=== PATIENT | female | born 1950 | race Caucasian/White ===

== ENCOUNTER 2016-02-29 10:17 | Emergency (ER) | payer MEDICARE, BC ==
[~2016-02-29 10:17] MED LIST: ALBU0.63 NEB; ASPI-482 PO; BRIM5DRO3 EACHEYE; COCO1000 PO; ESTR0.62 PO; GABA-586 PO; GLUC100018 PO; HYDR15SO4 PO; IBUP-1060 PO; IPRA0.2S5 IH; L.AC1CAP6 PO; MULT-208 PO; NAPR500T3 PO; OMEP20CA9 PO; PRAM0.125 PO; PRED20TA PO; SIMV40TA3 PO
[2016-02-29 11:26] VITALS: BP 146/77
[2016-02-29] MEDS ORDERED: DIPHENHYDRAMINE 50 MG/ML VIAL IM ONE (12:45)
[2016-02-29] MEDS ORDERED: DEXAMETHASONE SOD PHOS 20 MG/5 ML VIAL. IM ONE (12:45)
[2016-02-29] MEDS ORDERED: FAMO-63 PO (12:55)
[2016-02-29] MEDS ORDERED: PRED50TA PO (12:55)
--- NOTE | 2016-02-29 12:56 | PHYS DOC ---
Past Medical History Past Medical History: Asthma, GERD, High Cholesterol, IBS, Other Past Surgical History: Appendectomy, Cholecystectomy, Hysterectomy Additional Past Surgical Histo: ligament repair in knees, ulnar nerve repair, carpal tunnel, FUNDIPLICATION Alcohol Use: None Drug Use: None Adult General Chief Complaint Chief Complaint: POST-OP PROBLEM HPI HPI Patient is a 66 year old female with history of asthma, high cholesterol, IBS who presents today with a rash on her abdomen that she noted 3 days ago. Patient states she had fundoplication surgery [address] Kaba. Patient states when she took the bandages off she noted some areas on her abdomen were red. She also states she was started on Xarelto prophylaxis due to her history of PEs and Levaquin. Patient denies any chest pain or shortness of breath. She wonders if she is having an allergic reaction to medications or not. Review of Systems Review of Systems Constitutional: Denies fever or chills [] Eyes: Denies change in visual acuity, redness, or eye pain [] HENT: Denies nasal congestion or sore throat [] Respiratory: Denies cough or shortness of breath [] Cardiovascular: No additional information not addressed in HPI [] GI: Denies abdominal pain, nausea, vomiting, bloody stools or diarrhea [] : Denies dysuria or hematuria [] Musculoskeletal: Denies back pain or joint pain [] Integument: rash Neurologic: Denies headache, focal weakness or sensory changes [] Endocrine: Denies polyuria or polydipsia [] Current Medications Current Medications Current Medications Medications (Trade) Dose Ordered Sig/Kristin Start Time Stop Time Status Last Admin Dose Admin Dexamethasone Sodium Phosphate (Decadron) 10 mg 1X ONCE 02/29/16 12:45 02/29/16 12:46 Diphenhydramine HCl (Benadryl) 25 mg 1X ONCE 02/29/16 12:45 02/29/16 12:46 Allergies Allergies Allergies Coded Allergies Type Severity Reaction Last Updated Verified bacitracin Allergy Intermediate rash 02/24/16 Yes neomycin Allergy Intermediate rash 02/24/16 Yes polymyxin B Allergy Intermediate rash 02/24/16 Yes sulfamethoxazole Allergy Intermediate Nausea and Vomiting 02/24/16 Yes clavulanic acid Adverse Reaction Intermediate headache 02/27/16 Yes erythromycin base Adverse Reaction Intermediate vomiting 02/27/16 Yes morphine Adverse Reaction Intermediate vomiting 02/27/16 Yes nitrofurantoin Adverse Reaction Intermediate fatigue 02/27/16 Yes trimethoprim Adverse Reaction Intermediate Nausea and Vomiting 02/27/16 Yes amoxicillin Adverse Reaction Unknown headache 02/25/16 Yes Physical Exam Physical Exam Constitutional: Well developed, well nourished, no acute distress, non-toxic appearance. [] HENT: Normocephalic, atraumatic, bilateral external ears normal, oropharynx moist, no oral exudates, nose normal. [] Eyes: PERRLA, EOMI, conjunctiva normal, no discharge. [] Neck: Normal range of motion, no tenderness, supple, no stridor. [] Cardiovascular:Heart rate regular rhythm, no murmur [] Lungs & Thorax: Bilateral breath sounds clear to auscultation [] Abdomen: Bowel sounds normal, soft, no tenderness, no masses, no pulsatile masses. [] Skin: Mild amount of circular erythematous rash noted around the surgical sites on her abdomen. There is trace rash on the left thigh. Back: No tenderness, no CVA tenderness. [] Extremities: No tenderness, no cyanosis, no clubbing, ROM intact, no edema. [] Neurologic: Alert and oriented X 3, normal motor function, normal sensory function, no focal deficits noted. [] Psychologic: Affect normal, judgement normal, mood normal. [] Current Patient Data Vital Signs Vital Signs Date Time Temp Pulse Resp B/P Pulse Ox O2 Delivery O2 Flow Rate FiO2 02/29/16 11:26 98.4 103 16 94 Room Air 98.4 EKG EKG [] Radiology/Procedures Radiology/Procedures [] Course & Med Decision Making Course & Med Decision Making Pertinent Labs and Imaging studies reviewed. (See chart for details) Patient has a rash suspicious for contact dermatitis considering the rashes are mostly on surgical site after where dressing was removed. . She is on blood thinners and this causes easy bruising too. I did speak with Dr. Kohler who requested patient contact the office tomorrow to talk to Dr. Kaba. In the meantime he agreed we can give patient Decadron and Benadryl. Patient was discharged with prednisone for 4 days Benadryl Pepcid. Follow up with Dr. Kaba tomorrow Darlyn Disclaimer Darlyn Disclaimer This electronic medical record was generated, in whole or in part, using a voice recognition dictation system. Departure Departure Impression: Primary Impression: Contact dermatitis Disposition: HOME, SELF-CARE Condition: LEFT WITHOUT BEING SEEN Referrals: DALJIT POON MD (PCP) COLT KABA MD follow up with him tomorrow by calling his office Patient Instructions: Contact Dermatitis, [id number] Additional Instructions: You were seen for rash suspicious for contact dermatitis especially with its distribution along the surgical site. It could be from the tape used during surgery. Continue taking Benadryl every 4 hours, use the rest of the medications as prescribed. Scripts Famotidine (Pepcid)20 Mg [id number] Mg PO DAILY #7 TAB Prov:URI AGUILAR APRN 02/29/16 Prednisone 50 Mg Tablet1 Tab PO DAILY #4 TAB Prov:URI AGUILAR APRN 02/29/16 Problem Qualifiers Primary Impression: Contact dermatitis Contact dermatitis type: unspecified Contact dermatitis trigger: unspecified trigger Qualified Code: L25.9 - Unspecified contact dermatitis, unspecified cause URI AGUILAR APRN Feb 29, 2016 12:56
== END 2016-02-29 13:10 | disposition home or self-care (01) ==
LOC: ER 10:17
DX: L25.9 Unspecified contact dermatitis, unspecified cause (principal); E78.00 Pure hypercholesterolemia, unspecified; K21.9 Gastro-esophageal reflux disease without esophagitis; K58.9 Irritable bowel syndrome, unspecified; J45.909 Unspecified asthma, uncomplicated; Z90.49 Acquired absence of other specified parts of digestive tract; Z90.710 Acquired absence of both cervix and uterus; Z88.2 Allergy status to sulfonamides; Z88.5 Allergy status to narcotic agent; Z88.1 Allergy status to other antibiotic agents; Z88.8 Allergy status to other drugs, medicaments and biological substances
CPT/HCPCS: 96372; 99284; J1100; J1200

== ENCOUNTER → 2016-04-13 | Outpatient (CLI) | payer MEDICARE, BC ==
[~2016-04-13] MED LIST changes: +FAMO-63 PO; +PRED50TA PO
== END | disposition home or self-care (01) ==
LOC: LAB 11:04
PROVIDERS: ATTEND Internal Medicine Pulmonary Disease
DX: R06.02 Shortness of breath (principal)
CPT/HCPCS: 36415; 85379

== ENCOUNTER → 2016-04-20 | Outpatient (CLI) | payer MEDICARE, BC ==
--- NOTE | 2016-04-20 15:54 | KCIC ---
PROCEDURE Right knee, three views. HISTORY Pain. FINDINGS Frontal, oblique and lateral views of the right knee are obtained. There is minimal medial compartment joint space narrowing spurring. There is also minimal spurring of the patella. There is no fracture, dislocation or subluxation. There is no joint effusion. IMPRESSION Minimal medial and patellofemoral compartment osteoarthritis of the right knee. Electronically signed by: Marian Pineda (Apr 20, 2016 15:51:54)
== END | disposition home or self-care (01) ==
LOC: KCIC 10:03
PROVIDERS: ATTEND Family Medicine
DX: M17.11 Unilateral primary osteoarthritis, right knee (principal)
CPT/HCPCS: 73562

== ENCOUNTER → 2016-04-26 | Outpatient (CLI) | payer MEDICARE, BC ==
--- NOTE | 2016-04-27 10:11 | KCIC ---
PROCEDURE MRI study of the right knee without contrast HISTORY Right knee pain and stiffness. Right knee pain is anterior in location. Crepitus. Weakness. Patient injured right knee in March 2016. TECHNIQUE Noncontrast MRI sequences of the right knee were performed in all 3 planes. COMPARISON Radiographic series dated April 20, 2016. FINDINGS The anterior and posterior cruciate ligaments are intact. The quadriceps and patellar tendons are intact. No articular surface tear of the medial or lateral meniscus is seen. The medial collateral ligament is intact and no meniscal capsular separation is seen. The lateral collateral ligament complex and iliotibial band and popliteus tendon are intact. No posterior lateral corner injury is seen. No bone contusion or fracture or marrow infiltrative process is seen. Mild degenerative spurring of the medial and lateral tibiofemoral joint compartments is seen. No articular cartilage defect of the medial or lateral tibiofemoral joint compartments is seen. There is mild medial subluxation of the patella with respect to the trochlea. There is severe chondromalacia patellae involving the medial patellar facet with significant loss of the articular cartilage here which extends to the apex. There is moderate chondromalacia patellae involving the lateral patellar facet along with mild subchondral bone marrow edema. There is severe chondromalacia of the medial aspect of the trochlear groove with loss of the articular cartilage here. There is joint space narrowing of the medial portion of the patellofemoral joint compartment due to the loss of cartilage. Therefore, bone on bone interface may be present. There is mild degenerative spurring of the patellofemoral joint compartment. The medial and lateral retinacular ligaments are intact. No distended Alcantar's cyst is seen. A small knee joint effusion is evident. No loose osteochondral body is seen. No muscle edema is seen. 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 No ligament or tendon or meniscal tear is seen. Electronically signed by: Karsten Ryder MD (Apr 27, 2016 10:09:50)
== END | disposition home or self-care (01) ==
LOC: KCIC MRI 15:48
PROVIDERS: ATTEND Family Medicine
DX: M25.661 Stiffness of right knee, not elsewhere classified (principal); M22.41 Chondromalacia patellae, right knee
CPT/HCPCS: 73721

== ENCOUNTER → 2016-06-02 | Outpatient (CLI) | payer MEDICARE, BC ==
--- NOTE | 2016-06-02 13:20 | KCIC ---
PROCEDURE Bone mineral density exam HISTORY Menopausal disorder, steroid use, hysterectomy COMPARISON None FINDINGS Bone mineral density examination utilizing DEXA was performed. Left forearm was interrogated. Left forearm bone mineral density was 0.574 grams/centimeter squared which corresponds with T-score of 0.2 and a Z-score 2.2. Left hip bone mineral density of 1.083 grams/centimeter squared corresponds with T-score 1.2 and a Z-score 2.6. World Health Organization criteria for bone mineral density interpretation: Normal T-score greater than or equal to-1.0, Osteopenia T score between-1.0 and-2.5, Osteoporosis T-score less than or equal to-2.5. IMPRESSION There is normal bone density of the left hip and the left forearm. Electronically signed by: Eladio Alvarado MD (Jun 02, 2016 13:19:07)
--- NOTE | 2016-06-02 13:48 | KCIC ---
PROCEDURE Chest CT without contrast. HISTORY Asthma, pulmonary nodule, nonsmoker TECHNIQUE Noncontrast CT imaging was performed of the chest, multiplanar reconstruction images submitted. Exposure: One or more of the following individualized dose reduction techniques were utilized for this exam: 1. Automated exposure control. 2. Adjustment of the mA and/or kV according to patient size. 3. Use of iterative reconstruction technique. COMPARISON February 26, 2016 [facility] FINDINGS Previously seen lower lobe infiltrates have resolved. There is no pleural effusion, pneumothorax, or new infiltrate. Major airways are patent. There is some coronary calcification. There is again some hypodensity with associated calcification of the left thyroid gland. There is no new significant lymphadenopathy of the chest. Thoracic aortic caliber is similar, within normal limits. Small right upper lobe nodule near apex 0.3 cm is stable as seen on axial image 15. Small 0.3 cm nodule right middle lobe axial image 60 is unchanged. There is a residual nodule at site of previously seen atelectasis/infiltrate on axial image 62 in the left lower lobe up to 0.3 centimeters. There is mild biapical fibrotic change greater on the left. There is multilevel mild thoracic spondylosis. There again clips in the left upper quadrant of the abdomen. There is mild hepatic steatosis. Previously seen pneumomediastinum has resolved. IMPRESSION 1. Previously seen infiltrates have resolved. There are small pulmonary nodules as stated. If there are low risk factors for neoplasm, no follow-up would be needed given small size. If there are increased risk factors for neoplasm, 1 year followup is recommended. 2. There is mild hepatic steatosis. 3. There is coronary calcification. 4. Hypodense lesion with associated calcification of the left thyroid gland is similar. Electronically signed by: Eladio Alvarado MD (Jun 02, 2016 13:47:19)
--- NOTE | 2016-06-02 16:19 | KCIC ---
Bilateral digital screening mammograms with CAD: HISTORY Routine screening. COMPARISON Comparison is made to previous studies dated back to 05/24/2012. FINDINGS Breast density category C. The skin and nipples show no abnormalities. No abnormal lymph nodes are seen in the axilla. The breast parenchyma shows heterogeneous density. The nodular density in the left breast has regressed. There continues to be a small nodular density at the 9 o'clock B position of the right breast which is unchanged. There are no new dominant masses, suspicious calcifications or architectural distortions. Benign appearing calcifications are present. IMPRESSION No evidence of malignancy. Recommend routine annual mammographic screening. This study was interpreted with the benefit of Computerized Aided Detection (CAD). Mammography is not 100% sensitive in detecting breast cancer. Therefore, a self breast exam and a clinical breast exam are very important. A negative mammogram does not negate a clinically suspicious finding and should not result in a delay in biopsying a clinically suspicious abnormality. BI-RADS category 2. Benign. This patient's information has been entered into a reminder system for the patient to be notified with the results of this examination and a target date for her next mammograms. Electronically signed by: Romy Nuñez MD (Jun 02, 2016 16:16:56)
== END | disposition home or self-care (01) ==
LOC: KCIC CT 12:19
PROVIDERS: ATTEND Family Medicine
DX: Z12.31 Encounter for screening mammogram for malignant neoplasm of breast (principal); N95.9 Unspecified menopausal and perimenopausal disorder; R91.1 Solitary pulmonary nodule; N28.89 Other specified disorders of kidney and ureter; I25.10 Atherosclerotic heart disease of native coronary artery without angina pectoris; E07.9 Disorder of thyroid, unspecified
CPT/HCPCS: 71250; 77080; 77081; G0202; 77067

== ENCOUNTER → 2016-06-08 | Outpatient (CLI) | payer MEDICARE, BC ==
--- NOTE | 2016-06-08 12:03 | KCIC ---
PROCEDURE Thyroid ultrasound 06/08/2016 HISTORY Thyroid nodule seen on recent CT scan. TECHNIQUE A real-time ultrasound examination of the thyroid gland was performed. Multiple images were obtained. FINDINGS Comparison is made to the patient's CT scan of the chest dated 06/02/2016. The thyroid gland is mildly enlarged, left greater than right. The right lobe of the thyroid gland measures 3.9 x 1.8 x 1.5 centimeters in longitudinal, transverse, and AP dimensions. The left lobe of the thyroid gland measures 4.7 x 2.1 x 1.8 centimeters in size. The isthmus measures 4 millimeters in thickness which is within normal limits. The thyroid gland is heterogeneous. A 3 millimeter slightly complex anechoic structure is seen involving the inferior aspect of the right lobe of the thyroid gland. A heterogeneous oval-shaped solid nodule is seen involving the inferior aspect of the left lobe of the thyroid gland. This measures 1.6 centimeters in greatest diameter. This corresponds to the abnormality seen on the patient's recent CT scan. These findings are consistent with a multinodular goiter. The 1.6 centimeter nodule within the left lobe of the thyroid gland has a nonspecific appearance. IMPRESSION Findings consistent with a multinodular goiter. A 1.6 centimeter heterogeneous solid nodule is seen within the left lobe of the thyroid gland. This corresponds to the abnormality seen on the patient's recent CT scan. Its ultrasound appearance is nonspecific. Electronically signed by: Tom Hoffmann MD (Jun 08, 2016 12:02:20)
== END | disposition home or self-care (01) ==
LOC: KCIC US 10:49
PROVIDERS: ATTEND Family Medicine
DX: E04.2 Nontoxic multinodular goiter (principal)
CPT/HCPCS: 76536

== ENCOUNTER 2016-08-13 22:19 | Emergency (ER) | payer MEDICARE, BC ==
[~2016-08-13] VITALS: Ht 152.4 cm; Wt 86.6 kg
[2016-08-13 22:45] VITALS: BP 135/75
--- NOTE | 2016-08-13 23:17 | PHYS DOC ---
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 Patient reports that there was itching her after the bite and while itching it started to bleed significantly. Patient reports that she had a significant amount of blood on the floor she's loaded up several towels with blood. Patient denies any chest pain shortness of breath nausea vomiting diarrhea or dizziness. Patient reports that she was on the relative up until approximately 3 months ago. Patient denies any history of hypertension diabetes liver longer kidney problems. Patient reports postop she developed a DVT and took a 6 month course of several 2. Patient is not allergic to any medications. Patient not smoke drink or do any drugs. Patient denies any other symptomatology. Patient has any fevers shakes chills nausea vomiting diarrhea cough cold or runny nose. Patient's physical exam is significant for a small punctate area of the skin on her right lateral thigh over a significant amount of varicose veins. Patient is otherwise neurovascularly stable. Assessment and plan 58-year-old female with likely varicose vein bleeding that she mistakes for an insect/spider bite. Currently there is no bleeding. We will apply Dermabond to the area to help given an extra layer of infection. We will check an i-STAT on her to make sure her hemoglobin was okay with amount of bleeding that she reports. Patient is otherwise hemodynamically stable for discharge to home. Review of Systems Review of Systems Constitutional: Denies fever or chills [] Eyes: Denies change in visual acuity, redness, or eye pain [] HENT: Denies nasal congestion or sore throat [] All other review systems are negative except as documented in the history of present illness portion. Allergies Allergies Allergies Coded Allergies Type Severity Reaction Last Updated Verified bacitracin Allergy Intermediate rash 02/24/16 Yes neomycin Allergy Intermediate rash 02/24/16 Yes polymyxin B Allergy Intermediate rash 02/24/16 Yes sulfamethoxazole Allergy Intermediate Nausea and Vomiting 02/24/16 Yes clavulanic acid Adverse Reaction Intermediate headache 02/27/16 Yes erythromycin base Adverse Reaction Intermediate vomiting 02/27/16 Yes morphine Adverse Reaction Intermediate vomiting 02/27/16 Yes nitrofurantoin Adverse Reaction Intermediate fatigue 02/27/16 Yes trimethoprim Adverse Reaction Intermediate Nausea and Vomiting 02/27/16 Yes amoxicillin Adverse Reaction Unknown headache 02/25/16 Yes Physical Exam Physical Exam Constitutional: Well developed, well nourished, no acute distress, non-toxic appearance. [] HENT: Normocephalic, atraumatic, bilateral external ears normal, oropharynx moist, no oral exudates, nose normal. [] Eyes: PERRLA, EOMI, conjunctiva normal, no discharge. [] Neck: Normal range of motion, no tenderness, supple, no stridor. [] Cardiovascular:Heart rate regular rhythm, no murmur [] Lungs & Thorax: Bilateral breath sounds clear to auscultation [] Abdomen: Bowel sounds normal, soft, no tenderness, no masses, no pulsatile masses. [] Skin: Warm, dry, no erythema, no rash. [] Back: No tenderness, no CVA tenderness. [] Extremities: No tenderness, no cyanosis, no clubbing, ROM intact, no edema. [] Neurologic: Alert and oriented X 3, normal motor function, normal sensory function, no focal deficits noted. [] Psychologic: Affect normal, judgement normal, mood normal. [] Current Patient Data Vital Signs Vital Signs Date Time Temp Pulse Resp B/P (MAP) Pulse Ox O2 Delivery O2 Flow Rate FiO2 08/13/16 22:45 97.9 76 18 96 Room Air 97.9 EKG EKG [] Radiology/Procedures Radiology/Procedures [] Course & Med Decision Making Course & Med Decision Making Pertinent Labs and Imaging studies reviewed. (See chart for details) [] Dragon Disclaimer Dragon Disclaimer This electronic medical record was generated, in whole or in part, using a voice recognition dictation system. Departure Departure Impression: Primary Impression: Bleeding from varicose veins of right lower extremity Disposition: HOME, SELF-CARE Condition: IMPROVED Referrals: DALJIT POON MD (PCP) Patient Instructions: Bleeding Varicose Veins BENTON ROMERO MD Aug 13, 2016 23:17
[2016-08-25] MEDS ORDERED: TRAM50TA PO (15:29)
[2016-08-25] MEDS ORDERED: PRAM0.255 PO ×2 (15:29)
[2016-08-25] MEDS ORDERED: LATA2.5D3 EACHEYE (15:29)
[2016-08-25] MEDS ORDERED: FERR-26 PO (16:09)
[2016-08-25] MEDS ORDERED: LACT20SO PO (16:09)
== END 2016-08-13 23:22 | disposition home or self-care (01) ==
LOC: ER 22:19
DX: I83.891 Varicose veins of right lower extremity with other complications (principal); J45.909 Unspecified asthma, uncomplicated; K21.9 Gastro-esophageal reflux disease without esophagitis; E78.00 Pure hypercholesterolemia, unspecified; K58.9 Irritable bowel syndrome, unspecified; G20 Parkinson's disease; Z90.49 Acquired absence of other specified parts of digestive tract; Z90.710 Acquired absence of both cervix and uterus; Z86.718 Personal history of other venous thrombosis and embolism; Z88.1 Allergy status to other antibiotic agents; Z88.5 Allergy status to narcotic agent; Z88.2 Allergy status to sulfonamides; Z88.8 Allergy status to other drugs, medicaments and biological substances
CPT/HCPCS: 99281

== ENCOUNTER → 2016-08-29 | Outpatient (CLI) | payer MEDICARE, BC ==
[2016-08-13 22:45] VITALS: BP 135/75
[~2016-08-29] MED LIST changes: +FERR-26 PO; +LACT20SO PO; +LATA2.5D3 EACHEYE; +PRAM0.255 PO; +TRAM50TA PO
[2016-08-29 09:12] LABS: BASO % 0 % (0-3); EOS % 4 % (0-3); HEMOGLOBIN 12.7 g/dL (12.0-15.5); LYMPH # 1.5 x10^3/uL (1.0-4.8); LYMPH % 19 % (24-48); MEAN CORPUSCULAR HEMOGLOBIN 30 pg (25-35); MEAN CORPUSCULAR HGB CONC 34 g/dL (31-37); MEAN CORPUSCULAR VOLUME 88 fL (79-100); MONO % 6 % (0-9); NEUT % 70 % (31-73); PLATELET COUNT 340 x10^3/uL (140-400); RED BLOOD COUNT 4.22 x10^6/uL (3.50-5.40); RED CELL DISTRIBUTION WIDTH 12.6 % (11.5-14.5); WHITE BLOOD COUNT 8.1 x10^3/uL (4.0-11.0)
[2016-08-29 09:23] LABS: PROTHROMBIN TIME PATIENT 12.2 SEC (11.7-14.0)
[2016-08-29 09:24] LABS: ALBUMIN 3.2 g/dL (3.4-5.0); CALCIUM 8.6 mg/dL (8.5-10.1); CREATININE 1.2 mg/dL (0.6-1.0); GFR 44.7; POTASSIUM 3.9 mmol/L (3.5-5.1)
[2016-08-29 10:41] LABS: BILIRUBIN,URINE NEGATIVE (NEG); GLUCOSE,URINE NEGATIVE (NEG); NITRITE,URINE NEGATIVE (NEG); PH,URINE 5.5; PROTEIN,URINE NEGATIVE (NEG-TRACE); UROBILINOGEN,URINE 0.2 mg/dL (0.2 mg/dL)
[2016-08-29 11:06] LABS: SQUAMOUS EPITHELIAL CELL,UR MOD /LPF
[2016-08-29 11:07] LABS: BACTERIA,URINE FEW /HPF (0-FEW); RBC,URINE 0 /HPF (0-2); WBC,URINE OCC /HPF (0-4)
== END | disposition home or self-care (01) ==
LOC: SURGPAT 13:11
PROVIDERS: ATTEND Orthopaedic Surgery
DX: M17.11 Unilateral primary osteoarthritis, right knee (principal)
CPT/HCPCS: 36415; 80048; 81001; 82040; 85027; 85610; 85651; 85730; 87641

== ENCOUNTER 2016-09-13 05:32 | Inpatient (IN) | payer MEDICARE, BC ==
--- NOTE | 2016-09-12 11:27 | PDOC1 ---
History and Physical Date of Admission Date of Admission DATE: 09/13/16 Identification/Chief Complaint Chief Complaint right knee osteoarthritis pain Problems: Source Source: Chart review History of Present Illness History of Present Illness Nancy is a 66 year old female with right knee pain. She finished a series of Orthovisc injections on 07/28/16. She stated the injections did not provide any relief and she is still having pain. She had a cortisone injection previous to the Orthovisc series, which did not provide any relief either. Her pain is worse at night, she has a stinging pain. The pain is located anteriorly, around the patella, and along the medial joint line. She has tried cortisone, Orthovisc and Voltaren gel with no symptomatic relief. She has difficulty with stairs and trouble with activities of daily living, due to pain. She sews a lot and does woodworking and is not able to set up her woodworking room, due to pain. She is ready for total knee surgery. Past Medical History Past Medical History history of pulmonary embolism after fundoplication six months ago Cardiovascular: Hyperlipidemia Musculoskeletal: Osteoarthritis Past Surgical History Past Surgical History: Appendectomy, Cholecystectomy, Other (foot surgery, posterior lumbar discectomy fusion) Family History Family History: Cancer, Osteo Arthiritis Social History Smoke: No ALCOHOL: none Drugs: None Current Medications Current Medications Active Scripts Active Reported Lactulose 20 Gm/30 Ml Solution 5 Ml PO UD Ferrous Sulfate 325 Mg Tablet 325 Mg PO DAILY Mirapex (Pramipexole Di-Hcl) 0.25 Mg Tablet 0.5 Mg PO DAILYWSUP Mirapex (Pramipexole Di-Hcl) 0.25 Mg Tablet 0.25 Mg PO DAILY08 Tramadol Hcl 50 Mg Tablet 50 Mg PO Q6H PRN Latanoprost 2.5 Ml Drops 1 Drop EACHEYE QHS Gabapentin 300 Mg Capsule 300 Mg PO TID Ipratropium [place] 0.2 Mg/1 Ml Solution 0.2 Mg IH PRN Q4-6HRS PRN Ibuprofen 800 Mg Tablet 1 Tab PO TID Coconut Oil 1,000 Mg Capsule 1,000 Mg PO BID Glucosamine (Glucosamine Sulfate 2KCL) 1,000 Mg Tablet 1,000 Mg PO DAILY Albuterol Sulfate Neb Soln (Albuterol Sulfate) 0.63 Mg/3 Ml Vial.neb 1 Vial NEB BID Naproxen 500 Mg Tablet 1 Tab PO BID Premarin (Estrogens, Conjugated) 0.625 Mg Tablet 1 Tab PO DAILY Simvastatin 40 Mg Tablet 1 Tab PO QHS Allergies Allergies: Coded Allergies: bacitracin (Verified Allergy, Intermediate, rash, 02/24/16) neomycin (Verified Allergy, Intermediate, rash, 02/24/16) polymyxin B (Verified Allergy, Intermediate, rash, 02/24/16) sulfamethoxazole (Verified Allergy, Intermediate, Nausea and Vomiting, ) adhesive (Verified Adverse Reaction, Intermediate, Rash, 08/25/16) INCLUDING STERI STRIPS & GLUE clavulanic acid (Verified Adverse Reaction, Intermediate, headache, ) erythromycin base (Verified Adverse Reaction, Intermediate, vomiting, ) morphine (Verified Adverse Reaction, Intermediate, vomiting, 02/27/16) nitrofurantoin (Verified Adverse Reaction, Intermediate, fatigue, 02/27/16 ) CAUSES LETHARGY AND WEAKNESS trimethoprim (Verified Adverse Reaction, Intermediate, Nausea and Vomiting , 02/27/16) amoxicillin (Verified Adverse Reaction, Unknown, headache, 02/25/16) Physical Exam General: Alert, Oriented X3, Cooperative, No acute distress HEENT: Atraumatic, EOMI Lungs: Normal air movement Heart: RRR Abdomen: Soft Extremities: No clubbing, No cyanosis, Normal pulses, Other (Upon inspection of the right knee, there are no masses or detectable effusion. Normal alignment. The right knee shows active range of motion from 0-115 degrees. There is crepitus felt with motion and mild pain at the extremes of motion. There is tenderness to palpation along the medial joint line and over the patella. The knee is stable to varus and valgus stress, without subluxation or laxity. Quadriceps and hamstring show normal strength 5/5, with normal muscle tone, bilaterally. Upon inspection of the left knee, there are no masses or detectable effusion. Normal alignment. The left knee shows active range of motion from 0-125 degrees. There is mild crepitus felt with motion and no pain with motion. There is no tenderness to palpation about the knee. The knee is stable to varus and valgus stress, without subluxation or laxity. Quadriceps and hamstring show normal strength of 5/5, with normal muscle tone. No edema or varicosities, bilaterally.) Skin: No rashes, No breakdown, No significant lesion Neuro: Normal speech, Sensation intact Psych/Mental Status: Mental status NL, Mood NL Images Images IMAGING REPORT Images: 45 PA weightbearing view of both knees and lateral view of the right knee. Clinical information: Right knee pain. Comparison: None. Findings Bones: There is no fracture, dislocation, or acute bony abnormality detected. Joints: There is joint space narrowing of the medial compartment with small medial osteophytes. There is [id number] contact of the patellofemoral joint. Soft tissue: Normal. Impression: Right knee osteoarthritis. VTE Prophylaxis Ordered VTE Prophylaxis Devices: Yes VTE Pharmacological Prophylaxi: Yes Assessment/Plan Assessment/Plan Findings were reviewed and treatment options were discussed with the patient. She has chronic right knee pain unrelieved by nonoperative treatment. She has tried a series of Orthovisc injections, a cortisone injection, and Voltaren gel , without relief. She completed three months of formal physical therapy. She can no longer complete her activities of daily living and hobbies, due to pain. She states is ready for right total knee arthroplasty. Since most of the osteoarthritis is patellofemoral, we briefly discussed the option of patellofemoral arthroplasty elsewhere, as Dr. Olguin does not perform this operation, but she is not interested in possibly having to convert to total knee arthroplasty in the future. We discussed the surgical procedure, joint class, and rehabilitation process. We discussed the potential risks of infection , neurovascular injury, bleeding, blood clots, need for revision surgery, or other potential surgical or anesthetic complications. All of her questions were answered and she would like to proceed with right total knee arthroplasty at a mutually convenient date. She has a history of pulmonary embolism after fundoplication six months ago, so we will use Xarelto for DVT prophylaxis postoperatively. We will request medical clearance from her primary care provider, Dr. Russell Buchanan. She mentions her PCP recommended she see Dr. Young, neurologist, for management of movement disorder, so we will have her obtain clearance from his as well. DIOGO GAO Sep 12, 2016 11:27
[2016-09-13] VITALS (10 sets, daily range): BP systolic 95–109; BP diastolic 49–66
[~2016-09-13] VITALS: Ht 152.4 cm; Wt 81.6 kg
[2016-09-13] MEDS: IV DEXTROSE 5 %-0.45 % NACL 1,000 ML IV SCH ×2 (05:25→14:43)
[2016-09-13] MEDS ORDERED: MORPHINE SULFATE 5 MG, KETOROLAC TROMETHAMINE 30 MG, ROPIVacaine 0.5% PF 60 ML, EPINEPH... INT ART ONE ×5 (06:00)
[2016-09-13] MEDS ORDERED: HYDROcodone/APAP 7.5/325MG 1 TAB TABLET PO PRN ×2 (06:00→09:30)
[2016-09-13] MEDS ORDERED: CLINDAMYCIN 600MG PREMIX 50 ML IV PRN (06:00)
[2016-09-13] MEDS ORDERED: TRANEXAMIC ACID 1,000 MG in IV NS 50ML -- 1ST BAG INJ ONE (06:00)
[2016-09-13] MEDS ORDERED: CELECOXIB 200 MG CAPSULE. PO PRN (06:00)
[2016-09-13] MEDS ORDERED: VANCOMYCIN 1 GM VIAL. ONE (06:23)
[2016-09-13] MEDS ORDERED: TOBRAMYCIN POWDER 1.2 GM VIAL. ONE (06:23)
[2016-09-13] MEDS ORDERED: LIDOCAINE 1% 1 ML SYRINGE. ID PRN (07:00)
[2016-09-13] MEDS ORDERED: ONDANSETRON PF 4 MG/2 ML VIAL. IV PRN (07:00)
[2016-09-13] MEDS ORDERED: MORPHINE SULFATE 2 MG/ML DISP.SYRIN. IV PRN (07:00)
[2016-09-13] MEDS ORDERED: PROPOFOL 50 ML IV ONE (07:00)
[2016-09-13] MEDS ORDERED: PROCHLORPERAZINE 10 MG/2 ML VIAL. IV PRN ×2 (07:00→09:30)
[2016-09-13] MEDS ORDERED: HYDROmorphone 2 MG/ML VIAL IV PRN (07:00)
[2016-09-13] MEDS ORDERED: fentaNYL PF VIAL 100 MCG/2 ML VIAL IV PRN ×4 (07:00→09:30)
[2016-09-13] MEDS ORDERED: REMIFENTANIL 1 MG VIAL. IV ONE (07:00)
[2016-09-13] MEDS ORDERED: IV RINGERS,LACTATED 1000ML 1,000 ML IV SCH ×2 (07:00)
[2016-09-13] MEDS ORDERED: PROPOFOL 100 ML IV ONE (07:25)
[2016-09-13] MEDS ORDERED: DEXAMETHASONE SOD PHOS 20 MG/5 ML VIAL. ONE (07:28)
[2016-09-13] MEDS ORDERED: ePHEDrine PF IN SALINE 50 MG/5 ML DISP.SYRIN IV ONE (07:29)
[2016-09-13] MEDS ORDERED: TRANEXAMIC ACID 1,000 MG in IV NS 50ML -- 2ND BAG INJ ONE (08:00)
[2016-09-13] MEDS ORDERED: fentaNYL PF VIAL 100 MCG/2 ML VIAL ONE (08:03)
[2016-09-13] MEDS ORDERED: ONDANSETRON PF 4 MG/2 ML VIAL. ONE (08:38)
[2016-09-13] MEDS ORDERED: ZOLPIDEM 5 MG TABLET. PO PRN (09:30)
[2016-09-13] MEDS ORDERED: ACETAMINOPHEN 325 MG TABLET. PO PRN (09:30)
[2016-09-13] MEDS ORDERED: METOCLOPRAMIDE HCL 10 MG/2 ML VIAL. IV PRN (09:30)
[2016-09-13] MEDS ORDERED: DEXTROSE 50% 25 GM / 50ML DISP.SYRIN. IV PRN (09:30)
[2016-09-13] MEDS ORDERED: diphenhydrAMINE 50 MG/ML VIAL IV PRN (09:30)
[2016-09-13] MEDS ORDERED: PROCHLORPERAZINE 5 MG TABLET. PO PRN (09:30)
[2016-09-13] MEDS ORDERED: CALCIUM CARBONATE 500 MG TAB.CHEW PO PRN (09:30)
[2016-09-13] MEDS ORDERED: 0.9 % SODIUM CHLORIDE 10 ML DISP.SYRIN. IV PRN (09:30)
[2016-09-13] MEDS ORDERED: oxyCODONE/APAP 5/325 1 TAB TABLET PO PRN (09:30)
[2016-09-13] MEDS ORDERED: HYDROcodone/APAP 10/325 1 TAB TABLET PO PRN (09:30)
[2016-09-13] MEDS ORDERED: traMADol 50 MG TABLET PO PRN (09:30)
[2016-09-13] MEDS ORDERED: oxyCODONE/APAP 7.5/325 1 TAB TABLET PO PRN (09:30)
--- NOTE | 2016-09-13 09:45 | PDOC4 ---
Operative Note Operative Note Date of Procedure: September 13, 2016 Pre-Op Diagnosis: Osteoarthritis right knee Post-Op Diagnosis: Osteoarthritis right knee Procedure: right total knee arthroplasty Surgeon: Kaitlin Olguin MD Compliance Representative: Apple Cates PA-C Anesthesia: General EBL: 100 mL Specimens Obtained: right knee bone and soft tissue Complications: none Implant Company: [employer] Drains: Hemovac plus pain catheter Tourniquet time: 52 Minutes Tourniquet Pressure: 350 mm Hg Indications for Procedure: Arthritis pain unrelieved by nonoperative management. Findings: Severe osteoarthritis with bone on bone contact at the patellofemoral joint with narrowing and osteophytes in all three compartments Implants used: Size 2 right bicruciate stabilized Journey II BCS cobalt chrome femoral component, size 2 right Journey nonporous tibial baseplate, size 1-2 9 mm right Journey II BCS XLPE articular insert, 23 mm Journey BCS Biconvex patellar component Procedure in Detail: The patient was identified in the preoperative holding area, and the correct right lower extremity was marked by me. The patient was taken to the operating room where the patient was anesthetized by the Department of Anesthesia. Preoperative antibiotics were given intravenously. Tranexamic acid 1 g was given intravenously for intraoperative hemostasis. A "time-out" procedure was performed. The patient was positioned supine on the operative table with a tourniquet on the upper right thigh. The right lower limb was thoroughly prepped and draped in sterile fashion. An impervious stockinet and adhesive drape were used such that the skin was entirely covered. An Tatum leg rodrigues was used. The operating team wore personal exhaust-ventilated hoods. The tourniquet was inflated to 350 Hg. A midline skin incision was made with a scalpel using the patella and tibial tubercle as landmarks. Electrocautery was used for hemostasis. My sales service assistant used rake retractors. A medial parapatellar arthrotomy incision was used with extension into the distal quadriceps tendon. The patella was retracted laterally and Hohmann retractors were now used by my sales service assistant. Excess synovium, the menisci, and the cruciate ligaments were resected sharply. The patella was assessed and excess synovium and osteophytes around the patellar articulation were removed. The patella was measured with a caliper, cut freehand with a saw using caliper measurements, sized, and then drilled for an oval three-pegged patella component. Periarticular injection was used in the suprapatellar pouch and distal quadriceps muscle. Whitesides's line was assessed on the femur. An intra-medullary 5 degree cutting guide was pinned to the femur, and a distal femoral cut was made with an oscillating saw. No additional distal femoral resection was required. My sales service assistant held Hohmann retractors and an [place] retractor to protect the medial and lateral collateral ligaments, the patellar tendon, the skin and the other soft tissues. An anterior referencing guide was applied with external rotation of 3 to match Whitesides line. A 5-in-1 Journey II cutting guide was then applied and pinned to the femur. The posterior, anterior, and all chamfer cuts were made with the oscillating saw. An extramedullary guide was pinned to the tibia and rotational alignment and the planned resection thickness assessed. An external alignment alberto was used to verify the planned cut in the varus-valgus plane and regarding posterior slope referencing the tibial tubercle, the tibial shaft, the ankle joint, and the second metatarsal. The upper tibia was cut made with an oscillating saw. My sales service assistant held Hohmann retractors and a posterior cruciate ligament retractor to protect the medial and lateral collateral ligaments, the patellar tendon, the skin, the peroneal nerve and the other soft tissues. The upper tibia was sized with a trial baseplate. The posterior compartment was cleared of osteophytes and loose bodies, and posterior capsule released. Wendi-articular injection was used in the posterior compartment. The box cut for a posterior stabilized component was made. A preliminary reduction was performed with a trial femur, trial tibial baseplate and trial polyethylene. Soft-tissue balancing was now performed, and extension and rotation of the alignments was checked using a guide alberto in the tibial trial and a guide pin in the femur. No additional releases were required. The stability was assessed using different thicknesses of tibial articular surface to find satisfactory stability and good range of motion. The rotation of the tibial component was marked on the upper tibia. Final trial reduction was now performed verifying patella tracking and tibiofemoral stability and alignment. The tibia preparation was completed with a drill, saw, and fin punch at the previously noted rotation. The final implants were verified and opened. Outer gloves were changed by the operating team. The bone cuts were washed thoroughly with the zeeWAVES InterPulse device and dried. Two packages of [place] bone cement were mixed in powdered form with 1 gm of Vancomycin and 1.2 g tobramycin, then vacuum-mixed with the monomer, and placed into a cement gun. The cut surfaces of the bone were thoroughly dried with Joshi-tip suction and with laparotomy sponges for cement interdigitation. The final components were cemented into place. The knee was kept at full extension while the cement hardened, and excess cement was removed. Tranexamic acid 1 g was redosed intravenously for additional intraoperative hemostasis. A final periarticular injection was used for pain relief. The tourniquet was released, and electrocautery was used for hemostasis. A final check of yljoc-pe-ozehmu and stability was made, and the polyethylene implant final size was chosen. The polyethylene implant was secured to the tibial baseplate, and the knee was reduced a final time. Thorough irrigation was used. Hemovac and pain catheter were used.The arthrotomy was closed with interrupted [id number] #1 PDS suture. The arthrotomy incision was then run with #1 STRATAFIX Symmetric PDS Plus Knotless suture. The subcutaneous tissues were closed with #2-0 Vicryl by my sales service assistant. The skin was approximated with edgard by my sales service assistant. A bulky sterile gauze dressing was applied. Needle and sponge counts were correct. KAITLIN OLGUIN MD Sep 13, 2016 09:45
--- NOTE | 2016-09-13 10:19 | RAD ---
INDICATION: POST OP COMPARISON: 04/20/2016 IMPRESSION: Right knee: 2 views obtained status post right knee arthroplasty. There is a drain in the soft tissues without periprosthetic fracture or dislocation.
[2016-09-13] MEDS ORDERED: IPRATROPIUM BROMIDE 0.5 MG/2.5 ML NEBU. IH PRN (12:30)
[2016-09-13] MEDS ORDERED: LACTULOSE 20 GM/30 ML SOLUTION. PO PRN (13:15)
[2016-09-13] MEDS: GABAPENTIN 300 MG CAPSULE. PO SCH ×2 (14:42→21:14)
[2016-09-13] MEDS: ESTROGENS, CONJUGATED 0.625 MG TABLET PO SCH (14:42)
[2016-09-13] MEDS: CLINDAMYCIN 600MG PREMIX 50 ML IV SCH ×2 (14:43→19:23)
[2016-09-13] MEDS: FERROUS SULFATE 325 MG TABLET. PO SCH (17:22)
[2016-09-13] MEDS: RIVAROXABAN 10 MG TABLET. PO SCH (17:22)
[2016-09-13] MEDS: PRAMIPEXOLE 0.25 MG TABLET. PO SCH (17:23)
[2016-09-13] MEDS: ALBUTEROL SULFATE 2.5 MG/3 ML NEBU. NEB SCH (19:09)
[2016-09-13] MEDS ORDERED: NON FORMULARY ITEM (Coconut Oil 1,000 MG) PO SCH (21:00)
[2016-09-13] MEDS: SIMVASTATIN 40 MG TABLET. PO SCH (21:14)
[2016-09-13] MEDS: CELECOXIB 200 MG CAPSULE. PO SCH (21:14)
[2016-09-13] MEDS: LATANOPROST 0.005% OPHTH SOLUTION 2.5ML BOTTLE. OU SCH (21:15)
--- NOTE | 2016-09-14 00:46 | ACF ---
Admission Forms Criteria MUSCULOSKELETAL DISEASE GRG Clinical Indications for Admission to Inpatient Care (Place 'X' for any and all applicable criteria): Hospital admission is needed for appropriate care of the patient because of 1 or more of the following: [ ]I. Fracture, dislocation, or other musculoskeletal injury requiring inpatient care(medical) as indicated by 1 or more of the following(4)(5)(6)(7) [ ]a) Vertebral fracture requiring observation for instability or neurologic compromise (8) [ ]b) Compartment syndrome (proven or cannot be ruled out during observation level of care) (9) [ ]c) Limb-threatening injury [ ]d) Major injury requiring inpatient stabilization such as traction initiation or external fixation before internal fixation or closure of complex or open fracture [ ]e) Major injury requiring inpatient treatment after emergency or observation level care (as appropriate) [ ]f) Severe pain requiring acute inpatient management [ ]g) Injury with suspicion of abuse or neglect (eg., child, dependent elderly) [ ]II. Newly diagnosed or suspected bone, joint, or orthopedic device infection (e.g., osteomyelitis, septic arthritis) needing 1 or more of the following(1)(2)(3) [ ]a) IV antibiotics that cannot be initiated in other than inpatient setting (e.g., patient too unstable or home infusion not available) [ ]b) Device removal or replacement [ ]c) Bone or soft tissue debridement [ ]d) Joint drainage (drain placement or repetitive aspirations) [ ]III. Severe rheumatologic disease (e.g., systemic lupus erythematosus, rheumatoid arthritis) with complications or comorbidities (Also use Optimal Recovery Care Criteria or General Recovery Criteria as appropriate on the basis of predominant condition), including 1 or more of the following( 10)(11)(12)(13) [ ]a) Severe infection (e.g., INSURANCE CLAIMS ANALYST infection, sepsis) (14) [ ]b) Respiratory complications, including 1 or more of the following : [ ]i) Pleural effusion with respiratory compromise [ ]ii) Pulmonary hypertension with congestive failure [ ]iii) Respiratory failure [ ]iv) Pulmonary hemorrhage (15) [ ]c) Hematologic disease, including 1 or more of the following: [ ]i) Coagulopathy with bleeding [ ]ii) Thrombosis with hypercoagulable state [ ]iii) Thrombotic thrombocytopenic purpura [ ]d) Cerebritis with seizures, psychosis, or other severe abnormalities [ ]e) Vertebral destruction with monitoring needed for cervical myelopathy& possible respiratory compromise [ ]f) Exacerbation that requires inpatient treatment (e.g., intravenous immunosuppression) (16) [ ]g) Acute renal failure [ ]h) Cerebritis with seizures, psychosis, Altered mental status, or other neurologic abnormalities [ ]i) Pericardial effusion with tamponade [ ]j) Vertebral destruction, with monitoring needed for cervical myelopathy and possible respiratory compromise [ ]IV. Severe vasculitis with complications or comorbidities (Also use Optimal Recovery Care Criteria General Recovery Criteria as appropriate on the basis of predominant condition), including 1 or more of the following(11)(12)(17)(18)(19)(20) [ ]a) Exacerbation that requires inpatient treatment (e.g., intravenous immunosuppression) (19)(21) [ ]b) Pulmonary hemorrhage (15) [ ]c) INSURANCE CLAIMS ANALYST vasculitis with seizures, psychosis, Altered mental status that is severe or persistent, or other severe abnormalities (22) [ ]d) Cerebral infarction [ ]e) Gastrointestinal ischemia [ ]f) Gangrene or threatened amputation [ ]g) Renal failure (16) [ ]h) Other significant complications of vasculitis ( eg., tissue or organ ischemia, organ dysfunction ) [ ]V. Severe myopathy as indicated by 1 or more of the following (28)(29) [ ]a) New onset of airway compromise or inability to swallow [ ]b) Respiratory deterioration with observation needed for impending respiratory failure [ ]c) Exacerbation that requires inpatient treatment (e.g., intravenous immunosuppression) [ ]. Severe crystal gout (arthropathy) indicated by 1 or more of the following (23)(24) [ ]a) Severe pain requiring acute inpatient management [ ]b) Exacerbation that requires inpatient treatment (e.g., intravenous treatment) [ ]VII.Rhabdomyolysis and 1 or more of the following (25)(26)(27) [ ]a) Acute renal failure [ ]b) Need for intravenous hydration after emergency or observation level care (as appropriate) [ ]c) Inability to maintain oral hydration [ ]d) Change in mental status [ ]e) Electrolyte abnormality that remains after emergency or observation level care (as appropriate) [ ]VIII Post amputation complication, as indicated by ANY ONE of the following [ ]a) Infection [ ]b) Dehiscence [ ]c) Myodesis failure [X]IX. Severe pain requiring acute inpatient management due to musculoskeletal condition [ ]X. Musculoskeletal Disease and ALL of the following: [ ]a) Symptom or finding for which emergency and observation care have failed or are not considered appropriate (Use General Criteria: Observation Care as appropriate) [ ]b) Presence of ANY ONE of the following [ ]i) A General Admission Criteria [ ]ii) A Pediatric General Admission Criteria The original [facility] content created by [facility] has been revised. The portions of the content which have been revised are identified through the use of italic text or in bold, and [facility] has neither reviewed nor approved the modified material. All other unmodified content is copyright [facility]. Please see references footnoted in the original [facility] edition 2016 Admission Criteria Met?: Yes JODIE MONTIEL Sep 14, 2016 00:46
[2016-09-14] MEDS: CLINDAMYCIN 600MG PREMIX 50 ML IV SCH (01:33)
[2016-09-14 02:54] VITALS: BP 92/51
[2016-09-14] MEDS: IV DEXTROSE 5 %-0.45 % NACL 1,000 ML IV SCH ×2 (05:25→14:36)
[2016-09-14] MEDS ORDERED: MAGNESIUM HYDROXIDE 2,400 MG/30 ML ORAL.SUSP. PO PRN (06:00)
[2016-09-14 06:12] VITALS: BP 106/53
[2016-09-14] MEDS: ALBUTEROL SULFATE 2.5 MG/3 ML NEBU. NEB SCH ×2 (07:11→20:54)
[2016-09-14] MEDS: traMADol 50 MG TABLET PO PRN ×2 (08:22→12:28)
[2016-09-14] MEDS: GABAPENTIN 300 MG CAPSULE. PO SCH ×3 (08:22→21:05)
[2016-09-14] MEDS: FERROUS SULFATE 325 MG TABLET. PO SCH ×2 (08:22→17:02)
[2016-09-14] MEDS: CELECOXIB 200 MG CAPSULE. PO SCH ×2 (08:22→21:05)
[2016-09-14] MEDS: SENNOSIDES/DOCUSATE 8.6/50MG TABLET. PO SCH (08:22)
[2016-09-14] MEDS: PRAMIPEXOLE 0.25 MG TABLET. PO SCH ×2 (08:23→17:02)
[2016-09-14] MEDS: MULTIVITAMIN with MINERAL TABLET. PO SCH (08:23)
[2016-09-14] MEDS: ESTROGENS, CONJUGATED 0.625 MG TABLET PO SCH (08:23)
[2016-09-14 08:29] LABS: HEMOGLOBIN 10.7 g/dL (12.0-15.5)
[2016-09-14] MEDS ORDERED: NON FORMULARY ITEM (Glucosamine Sulfate 2KCL (Glucosamine) 1,000 MG) PO SCH (09:00)
--- NOTE | 2016-09-14 09:56 | PDOC ---
PROGRESS NOTES Subjective Subjective Doing well. States she has no pain. Objective Vital Signs Vital Signs Date Time Temp Pulse Resp B/P (MAP) Pulse Ox O2 Delivery O2 Flow Rate FiO2 09/14/16 08:22 Room Air 09/14/16 07:15 99 2.0 09/14/16 06:12 97.6 76 20 106/53 (70) 97.6 Physical Exam Dressing dry. Pain catheter and Hemovac in place. Good dorsiflexion and plantarflexion of the foot with no evidence of neurovascular injury or DVT. Calves are soft and non-tender. Negative Homans. Peripheral pulses and light touch sensation intact. Labs Laboratory Tests Test 09/14/16 08:15 Hemoglobin 10.7 g/dL (12.0-15.5) Hematocrit 31.0 % (36.0-47.0) Mean Corpuscular Hemoglobin Concent 35 g/dL (31-37) Laboratory Tests Test 09/14/16 08:15 Hemoglobin 10.7 g/dL (12.0-15.5) Hematocrit 31.0 % (36.0-47.0) Mean Corpuscular Hemoglobin Concent 35 g/dL (31-37) Imaging Postoperative x-rays reviewed by me, showing satisfactory total knee replacement , with no apparent complications. Assessment Assessment POD #1 right TKA Problems: Plan Plan of Care Continue POC including DVT prophylaxis and physical therapy. She is doing well and would like to go home tomorrow afternoon, if rest of stay is uneventful. DIOGO GAO Sep 14, 2016 09:56
[2016-09-14 13:06] VITALS: BP 122/64
[2016-09-14] MEDS ORDERED: BISACODYL 10 MG SUPP.RECT. PR PRN (16:00)
[2016-09-14] MEDS: RIVAROXABAN 10 MG TABLET. PO SCH (17:02)
[2016-09-14 18:59] VITALS: BP 100/62
[2016-09-14] MEDS: SIMVASTATIN 40 MG TABLET. PO SCH (21:05)
[2016-09-14] MEDS: LATANOPROST 0.005% OPHTH SOLUTION 2.5ML BOTTLE. OU SCH (21:05)
[2016-09-15 05:51] LABS: HEMATOCRIT 27.5 % (36.0-47.0); HEMOGLOBIN 9.4 g/dL (12.0-15.5)
[2016-09-15 06:46] VITALS: BP 111/39
[2016-09-15] MEDS: ALBUTEROL SULFATE 2.5 MG/3 ML NEBU. NEB SCH (08:12)
[2016-09-15] MEDS: MULTIVITAMIN with MINERAL TABLET. PO SCH (08:36)
[2016-09-15] MEDS: ESTROGENS, CONJUGATED 0.625 MG TABLET PO SCH (08:36)
[2016-09-15] MEDS: PRAMIPEXOLE 0.25 MG TABLET. PO SCH (08:36)
[2016-09-15] MEDS: traMADol 50 MG TABLET PO PRN ×2 (08:37→12:35)
[2016-09-15] MEDS: CELECOXIB 200 MG CAPSULE. PO SCH (08:37)
[2016-09-15] MEDS: FERROUS SULFATE 325 MG TABLET. PO SCH (08:37)
[2016-09-15] MEDS: SENNOSIDES/DOCUSATE 8.6/50MG TABLET. PO SCH (08:37)
[2016-09-15] MEDS: GABAPENTIN 300 MG CAPSULE. PO SCH ×2 (08:37→14:10)
--- NOTE | 2016-09-15 12:31 | PDOC ---
PROGRESS NOTES Subjective Subjective Doing well. Only reports mild pain increase from yesterday. She mentions she just found out that her 5 year old great grandson is in the ICU in [place] for a inoperable brain tumor. Objective Vital Signs Vital Signs Date Time Temp Pulse Resp B/P (MAP) Pulse Ox O2 Delivery O2 Flow Rate FiO2 09/15/16 08:37 Room Air 09/15/16 08:12 95 09/15/16 06:46 98.0 75 22 111/39 (63) 98.0 09/14/16 07:15 2.0 Physical Exam Expected swelling. Pain catheter and drain have been removed. Incision with spotty drainage only from drain sites. Aquacel intact with spotty drainage. Calf soft and nontender. Negative Homans sign. Good AROM ankle. Peripheral pulses and light touch sensation intact. Labs Laboratory Tests Test 09/14/16 08:15 09/15/16 04:00 Hemoglobin 10.7 g/dL (12.0-15.5) 9.4 g/dL (12.0-15.5) Hematocrit 31.0 % (36.0-47.0) 27.5 % (36.0-47.0) Mean Corpuscular Hemoglobin Concent 35 g/dL (31-37) 34 g/dL (31-37) Laboratory Tests Test 09/15/16 04:00 Hemoglobin 9.4 g/dL (12.0-15.5) Hematocrit 27.5 % (36.0-47.0) Mean Corpuscular Hemoglobin Concent 34 g/dL (31-37) Assessment Assessment POD 2 TKA Problems: Plan Plan of Care Continue DVT prophylaxis with Xarelto and physical therapy. Planned discharge this afternoon to home. Office F/U in 10-14 days. DIOGO GAO Sep 15, 2016 12:31
--- NOTE | 2016-09-15 12:40 | PDOC3 ---
Discharge Summary Visit Information Date of Admission: Sep 13, 2016 Date of Discharge: Sep 15, 2016 Admitting Diagnosis: right knee osteoarthritis pain Brief Hospital Course Allergies Allergies Coded Allergies Type Severity Reaction Last Updated Verified bacitracin Allergy Intermediate rash 09/13/16 Yes neomycin Allergy Intermediate rash 09/13/16 Yes polymyxin B Allergy Intermediate rash 09/13/16 Yes sulfamethoxazole Allergy Intermediate Nausea and Vomiting 09/13/16 Yes adhesive Adverse Reaction Intermediate Rash 09/13/16 Yes clavulanic acid Adverse Reaction Intermediate headache 09/13/16 Yes erythromycin base Adverse Reaction Intermediate vomiting 02/27/16 Yes morphine Adverse Reaction Intermediate vomiting 09/13/16 Yes nitrofurantoin Adverse Reaction Intermediate fatigue 09/13/16 Yes trimethoprim Adverse Reaction Intermediate Nausea and Vomiting 09/13/16 Yes amoxicillin Adverse Reaction Mild headache 09/15/16 Yes Vital Signs Vital Signs Date Time Temp Pulse Resp B/P (MAP) Pulse Ox O2 Delivery O2 Flow Rate FiO2 09/15/16 12:35 Room Air 09/15/16 08:12 95 09/15/16 06:46 98.0 75 22 111/39 (63) 98.0 09/14/16 07:15 2.0 Lab Results Laboratory Tests Test 09/14/16 08:15 09/15/16 04:00 Hemoglobin 10.7 g/dL (12.0-15.5) 9.4 g/dL (12.0-15.5) Hematocrit 31.0 % (36.0-47.0) 27.5 % (36.0-47.0) Mean Corpuscular Hemoglobin Concent 35 g/dL (31-37) 34 g/dL (31-37) Laboratory Tests Test 09/15/16 04:00 Hemoglobin 9.4 g/dL (12.0-15.5) Hematocrit 27.5 % (36.0-47.0) Mean Corpuscular Hemoglobin Concent 34 g/dL (31-37) Brief Hospital Course 66 year old who presented with knee osteoarthritis, for elective right total knee arthroplasty. The patient underwent total knee arthroplasty under general anesthesia the day of admission. Perioperative antibiotics and DVT prophylaxis were used. Postoperatively physical therapy and case management were consulted. The patient progressed and is stable for discharge. Discharge Information Condition at Discharge: Stable Follow Up: Weeks (2) Disposition/Orders: D/C to Home Scheduled Albuterol Sulfate (Albuterol Sulfate Neb Soln), 1 VIAL NEB BID, (Reported) Coconut Oil (Coconut Oil), 1,000 MG PO BID, (Reported) Estrogens, Conjugated (Premarin), 1 TAB PO DAILY, (Reported) Ferrous Sulfate (Ferrous Sulfate), 325 MG PO DAILY, (Reported) Gabapentin (Gabapentin), 300 MG PO TID, (Reported) Glucosamine Sulfate 2KCL (Glucosamine), 1,000 MG PO DAILY, (Reported) Ibuprofen (Ibuprofen), 1 TAB PO TID, (Reported) Lactulose (Lactulose), 5 ML PO UD, (Reported) Latanoprost (Latanoprost), 1 DROP EACHEYE QHS, (Reported) Naproxen (Naproxen), 1 TAB PO BID, (Reported) Pramipexole Di-Hcl (Mirapex), 0.25 MG PO DAILY08, (Reported) Pramipexole Di-Hcl (Mirapex), 0.5 MG PO DAILYWSUP, (Reported) Simvastatin (Simvastatin), 1 TAB PO QHS, (Reported) Scheduled PRN Ipratropium [place] (Ipratropium [place]), 0.2 MG IH PRN Q4-6HRS PRN for SHORTNESS OF BREATH, (Reported) Tramadol Hcl (Tramadol Hcl), 50 MG PO Q6H PRN for PAIN, (Reported) Patient Instructions Patient Instructions Patient Instructions Continue to WBAT with walker. Keep dressing dry and intact. F/U with [facility] in 10-14 days. Call for appointment. Physical therapy for TKA Continue DVT prophylaxis with Xarelto 10mg daily. DIOGO GAO Sep 15, 2016 12:40
[2016-09-15 14:00] VITALS: BP 109/58
--- NOTE | 2016-09-15 17:55 | PATHOLOGY ---
PATHOLOGY REPORT * * * * * * * * FINAL DIAGNOSIS: Segments of bone and soft tissue, right total knee arthroplasty: - Degenerative arthritis. (JPM:brooke; 09/15/2016) REPORT ELECTRONICALLY SIGNED BY: Omi Bai M.D. DATE/TIME: 09/15/2016 17:54 * * * * * * * * GROSS PATHOLOGY: Received in formalin labeled "Samantha Ureña, right knee tissue," are multiple segments of bone, including tibial plateau, measuring 11.5 x 9.6 x 2.1 cm in aggregate dimensions admixed with soft tissue; meniscus is present.The articulating surfaces are white-perez and are focally thin and granular in appearance with no gross evidence of eburnation. Supervisor Vendor Quality sections of bone and soft tissue are submitted in cassette A1, following decalcification. (CAA; 09/14/2016) INITIAL CPT CODE(S): A; 24793, 40510 Professional services performed [place] [facility] [place] [address] Technical services performed by [facility] at [address] [place] [address]. SPECIMEN(S) RECEIVED: A.Right knee tissue CLINICAL HISTORY: Right knee OA PATIENT: SAMANTHA UREÑA /AGE: 12 1950 (Age: 66) PATIENT #: [id number] ALT CASE #: SPECIMEN COLLECTION DATE: 09/13/2016 SPECIMEN RECEIVED DATE: 09/13/2016 [facility] - [address] [place] [address] - PHONE: [phone] * * * END OF REPORT * * *
== END 2016-09-15 15:00 | disposition home or self-care (01) | DRG 470 ==
LOC: OPSVCIP 05:32 → 4 SOUTHEST 10:45
PROVIDERS: ADMIT Orthopaedic Surgery; ATTEND Orthopaedic Surgery
PROC: 0SRC0J9 Replacement of Right Knee Joint with Synthetic Substitute, Cemented, Open Approach (ICD-10-PCS; principal; 2016-09-13 07:10)
DX: M17.11 Unilateral primary osteoarthritis, right knee (principal); G25.9 Extrapyramidal and movement disorder, unspecified; E78.5 Hyperlipidemia, unspecified; Z86.711 Personal history of pulmonary embolism; Z90.49 Acquired absence of other specified parts of digestive tract; Z98.1 Arthrodesis status; Z80.9 Family history of malignant neoplasm, unspecified; Z88.1 Allergy status to other antibiotic agents; Z88.5 Allergy status to narcotic agent; Z88.2 Allergy status to sulfonamides; Z88.8 Allergy status to other drugs, medicaments and biological substances
CPT/HCPCS: 36415; 73560; 85014; 85018; 86850; 86900; 86901; 88305; 88311; 94250; 94640; 94760; G0238; J0171; J1100; J1885; J2060; J2270; J2405; J2704; J2795; J3010; J3260; J3370; J3490; J7030; J7120; J7613; 97116; 97150; 97530; 97535; C1769

== ENCOUNTER 2016-12-24 21:32 | Emergency (ER) | payer MEDICARE, BC ==
[~2016-12-24] VITALS: Ht 152.4 cm; Wt 83.9 kg
[~2016-12-24 21:32] MED LIST changes: -NAPR500T3 PO; +NAPR500T4 PO
[2016-12-24 21:40] VITALS: BP 141/65
--- NOTE | 2016-12-24 21:53 | PHYS DOC ---
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 HPI Patient is a 66 year old female presents emergency department stating that she has a history of back problems in which she has rods placed in her back. Tonight she states that she had bent over to take the choke her collar off of her dog when she went to stand up and heard a loud pop. She states that she has had extreme pain in the lumbar to lower back area since this time. She denies being incontinent of stool or loss of urine. She states that she has pain that radiated down into her left knee area. She denies any falls injuries or trauma. Patient denies taking anything for the pain and discomfort. She did have to ambulate and with a cane due to the pain. Review of Systems Review of Systems Constitutional: Denies fever or chills [] Eyes: Denies change in visual acuity, redness, or eye pain [] HENT: Denies nasal congestion or sore throat [] Respiratory: Denies cough or shortness of breath [] Cardiovascular: No additional information not addressed in HPI [] GI: Denies abdominal pain, nausea, vomiting, bloody stools or diarrhea [] : Denies dysuria or hematuria [] Musculoskeletal: back pain denies joint pain [] Integument: Denies rash or skin lesions [] Neurologic: Denies headache, focal weakness or sensory changes [] Endocrine: Denies polyuria or polydipsia [] Current Medications Current Medications Current Medications Medications (Trade) Dose Ordered Sig/Kristin Start Time Stop Time Status Last Admin Dose Admin Ibuprofen (Motrin) 600 mg 1X ONCE 12/24/16 22:15 12/24/16 22:16 DC 12/24/16 21:58 600 MG Tramadol HCl (Ultram) 50 mg 1X ONCE 12/24/16 22:15 12/24/16 22:16 DC 12/24/16 21:58 50 MG Allergies Allergies Allergies Coded Allergies Type Severity Reaction Last Updated Verified bacitracin Allergy Intermediate rash 09/13/16 Yes neomycin Allergy Intermediate rash 09/13/16 Yes polymyxin B Allergy Intermediate rash 09/13/16 Yes sulfamethoxazole Allergy Intermediate Nausea and Vomiting 09/13/16 Yes adhesive Adverse Reaction Intermediate Rash 09/13/16 Yes clavulanic acid Adverse Reaction Intermediate headache 09/13/16 Yes erythromycin base Adverse Reaction Intermediate vomiting 02/27/16 Yes morphine Adverse Reaction Intermediate vomiting 09/13/16 Yes nitrofurantoin Adverse Reaction Intermediate fatigue 09/13/16 Yes trimethoprim Adverse Reaction Intermediate Nausea and Vomiting 09/13/16 Yes amoxicillin Adverse Reaction Mild headache 09/15/16 Yes Physical Exam Physical Exam Constitutional: Well developed, well nourished, no acute distress, non-toxic appearance. [] HENT: Normocephalic, atraumatic, bilateral external ears normal, oropharynx moist, no oral exudates, nose normal. [] Eyes: PERRLA, EOMI, conjunctiva normal, no discharge. [] Neck: Normal range of motion, no tenderness, supple, no stridor. [] Cardiovascular:Heart rate regular rhythm, no murmur [] Lungs & Thorax: Bilateral breath sounds clear to auscultation [] Skin: Warm, dry, no erythema, no rash. [] Back: No thoracic spine pain, patient with lumbar spine tenderness no crepitus no deformities no step-offs noted. Extremities: No tenderness, no cyanosis, no clubbing, ROM intact, no edema. Peripheral pulses 2+ cap refill brisk less than 2 seconds. Neurologic: Alert and oriented X 3, normal motor function, normal sensory function, no focal deficits noted. [] Psychologic: Affect normal, judgement normal, mood normal. [] Current Patient Data Vital Signs Vital Signs Date Time Temp Pulse Resp B/P (MAP) Pulse Ox O2 Delivery O2 Flow Rate FiO2 12/24/16 21:40 97.6 69 18 99 Room Air 97.6 EKG EKG [] Radiology/Procedures Radiology/Procedures [][facility] [address] [place] [address] IMAGING REPORT Signed PATIENT: SAMANTHA FOUNTAIN ACCOUNT: [id number] : 1950 LOCATION: ER AGE: 66 SEX: F EXAM STATUS: REG ER ORD. PHYSICIAN: GONZÁLEZ PORRAS APRN REASON: back pack heard a pop pain from lower thoracic to sacrum PROCEDURE: CT LUMBAR SPINE WO CONTRAST EXAM: Lumbar spine CT without contrast. HISTORY: Pain. TECHNIQUE: Computed tomographic images of the lumbar spine were obtained without contrast. Multiplanar reformatting was performed. *One or more of the following individualized dose reduction techniques were utilized for this examination: 1. Automated exposure control. 2. Adjustment of the mA and/or kV according to patient size. 3. Use of iterative reconstruction technique. COMPARISON: MRI dated 08/14/2014 FINDINGS: There are findings consistent with instrumented posterior spinal fusion, laminectomy decompression and intervertebral fusion device placement at L3-L5. There is minimal grade 1 anterolisthesis of L3 on L4 and L4-L5. There is mild retrolisthesis of L5 on S1. There is mild scoliosis. There is degenerative endplate remodeling with disc space narrowing and Schmorl's node formation and vacuum phenomenon at L2-L3 and L5-S1. There is additional endplate remodeling at the fused levels. There is evidence of prior gastric surgery. There is colonic diverticulosis without evidence of diverticulitis. The gallbladder is surgically absent. There is a 1 cm hypodense lesion within the right hepatic lobe. There may be hepatic steatosis. There is vacuum phenomenon involving the right hip joint space. The uterus is surgically absent. At L1-L2, there is a mild disc bulge. There is no stenosis. At L2-L3, there is a right lateral predominant disc bulge and endplate remodeling. There is moderate facet arthropathy. There is hypertrophy of the ligamentum flavum. There is moderate to severe right and mild left foraminal stenosis. There is mild central canal stenosis. At L3-L4, there is instrumented fusion. There is a disc bulge and endplate remodeling. There is laminectomy decompression of the thecal sac. At L4-L5, there is instrumented fusion. There is a right foraminal to extra foraminal disc protrusion superimposed on a disc bulge and right lateral predominant endplate remodeling. There is laminectomy decompression of the thecal sac. At L5-S1, there is a left foraminal to lateral disc protrusion and osteophyte complex superimposed on a left lateral predominant disc bulge and endplate osteophytosis. There is moderate to severe left foraminal stenosis. IMPRESSION: 1. Instrumented fusion and laminectomy decompression at L3-L5. There is no evidence of instrumentation loosening or fracture. 2. Multilevel degenerative change within the lumbar spine, resulting in stenosis as described in detail above. 3. Mild multilevel listhesis and lumbar scoliosis. 4. 1.0 cm hypodense lesion within the right hepatic lobe. In the absence of known malignancy, this is likely a cyst or hemangioma. 5. Colonic diverticulosis. Electronically signed by: Marian Jones MD (12/24/2016 10:18 PM) [facility] DICTATED and SIGNED BY: MARIAN JONES MD DATE: 12/24/162211 CC: GONZÁLEZ PORRAS APRN; DALJIT POON MD ~ Course & Med Decision Making Course & Med Decision Making Pertinent Labs and Imaging studies reviewed. (See chart for details) Patient was provided with Ultram here in the emergency department as well as ibuprofen. CT scan of the lumbar spine has been ordered. Patient was provided with CT results. Patient will be discharged home in stable condition. Signs and symptoms to return to the emergency department have been provided. Recommended ibuprofen 600 mg every 8 hours offered tramadol with patient stating the she has plenty at home. Ice packs on 20 minutes several times day. Patient agrees with discharge instructions, treatment regimen and followup recommendation. All questions and concerns have been answered at patients bedside. [] Dragon Disclaimer Dragon Disclaimer This electronic medical record was generated, in whole or in part, using a voice recognition dictation system. Departure Departure Impression: Primary Impression: Back pain Disposition: 01 HOME, SELF-CARE Condition: STABLE Referrals: DALJIT POON MD (PCP) Patient Instructions: Back Pain, Adult, [id number] Additional Instructions: Activity as tolerated Medication as prescribed Ibuprofen 600 mg every 8 hours with food stop taking if you develop upset stomach Ice packs to the area on 20 minutes several times a day Followup with your primary care provider in 3-5 days Return to emergency department as needed for signs and symptoms that become worse. Problem Qualifiers Primary Impression: Back pain Back pain location: back pain in unspecified location Chronicity: unspecified Back pain laterality: unspecified Qualified Codes: M54.9 - Dorsalgia, unspecified GONZÁLEZ PORRAS APRN Dec 24, 2016 21:53
[2016-12-24] MEDS ORDERED: IBUPROFEN 600 MG TABLET. PO ONE (22:15)
[2016-12-24] MEDS ORDERED: traMADol 50 MG TABLET PO ONE (22:15)
--- NOTE | 2016-12-24 22:21 | RAD ---
EXAM: Lumbar spine CT without contrast. HISTORY: Pain. TECHNIQUE: Computed tomographic images of the lumbar spine were obtained without contrast. Multiplanar reformatting was performed. *One or more of the following individualized dose reduction techniques were utilized for this examination: 1. Automated exposure control. 2. Adjustment of the mA and/or kV according to patient size. 3. Use of iterative reconstruction technique. COMPARISON: MRI dated 08/14/2014 FINDINGS: There are findings consistent with instrumented posterior spinal fusion, laminectomy decompression and intervertebral fusion device placement at L3-L5. There is minimal grade 1 anterolisthesis of L3 on L4 and L4-L5. There is mild retrolisthesis of L5 on S1. There is mild scoliosis. There is degenerative endplate remodeling with disc space narrowing and Schmorl's node formation and vacuum phenomenon at L2-L3 and L5-S1. There is additional endplate remodeling at the fused levels. There is evidence of prior gastric surgery. There is colonic diverticulosis without evidence of diverticulitis. The gallbladder is surgically absent. There is a 1 cm hypodense lesion within the right hepatic lobe. There may be hepatic steatosis. There is vacuum phenomenon involving the right hip joint space. The uterus is surgically absent. At L1-L2, there is a mild disc bulge. There is no stenosis. At L2-L3, there is a right lateral predominant disc bulge and endplate remodeling. There is moderate facet arthropathy. There is hypertrophy of the ligamentum flavum. There is moderate to severe right and mild left foraminal stenosis. There is mild central canal stenosis. At L3-L4, there is instrumented fusion. There is a disc bulge and endplate remodeling. There is laminectomy decompression of the thecal sac. At L4-L5, there is instrumented fusion. There is a right foraminal to extra foraminal disc protrusion superimposed on a disc bulge and right lateral predominant endplate remodeling. There is laminectomy decompression of the thecal sac. At L5-S1, there is a left foraminal to lateral disc protrusion and osteophyte complex superimposed on a left lateral predominant disc bulge and endplate osteophytosis. There is moderate to severe left foraminal stenosis. IMPRESSION: 1. Instrumented fusion and laminectomy decompression at L3-L5. There is no evidence of instrumentation loosening or fracture. 2. Multilevel degenerative change within the lumbar spine, resulting in stenosis as described in detail above. 3. Mild multilevel listhesis and lumbar scoliosis. 4. 1.0 cm hypodense lesion within the right hepatic lobe. In the absence of known malignancy, this is likely a cyst or hemangioma. 5. Colonic diverticulosis. Electronically signed by: Marian Pineda MD (12/24/2016 10:18 PM) [facility]
== END 2016-12-24 22:47 | disposition home or self-care (01) ==
LOC: ER 21:32
DX: M54.5 Low back pain (principal); M25.562 Pain in left knee; E78.00 Pure hypercholesterolemia, unspecified; K21.9 Gastro-esophageal reflux disease without esophagitis; J45.909 Unspecified asthma, uncomplicated; K58.9 Irritable bowel syndrome, unspecified; G20 Parkinson's disease; Z90.49 Acquired absence of other specified parts of digestive tract; Z90.710 Acquired absence of both cervix and uterus; Z88.1 Allergy status to other antibiotic agents; Z88.2 Allergy status to sulfonamides; Z88.8 Allergy status to other drugs, medicaments and biological substances; Z88.6 Allergy status to analgesic agent
CPT/HCPCS: 72131; 99284-25

== ENCOUNTER → 2017-01-09 | Outpatient (CLI) | payer MEDICARE, BC ==
[2016-12-24 21:40] VITALS: BP 141/65
[~2017-01-09] MED LIST changes: +AZEL137S3 NS; +BIOT10TA PO; +FLUC50TA3 PO; +GABA600T2 PO; +GADOBUTROL 7.5 MMOL/7.5 ML VIAL IV ONE; +META-21 PO; +OMEP40CA5 PO
--- NOTE | 2017-01-09 14:34 | KCIC ---
ABDOMEN WO/W CONTRAST Clinical Indication: Liver lesion on CT. Abnormal abdominal ultrasound. Comparison: CT chest without contrast, June 02, 2016. TECHNIQUE: Routine multiplanar multiple pulse sequence images of the abdomen obtained before and after 5 cc Gadavist IV contrast. Findings: In and out of phase images of the liver demonstrate fatty infiltration. No solid liver lesion is identified. There are hepatic cysts: There is a 10 mm cyst in segment 5/6, small subcapsular cyst in segment 6/7, 7 mm cyst in segment 2/3, and a tiny cyst in segment 4A. Portal and hepatic veins are patent. Biliary tree and pancreatic duct are normal caliber. Cholecystectomy. There are surgical clips in the left upper abdomen that create magnetic susceptibility artifact. Spleen, pancreas, adrenal glands, abdominal aorta caliber, and kidneys are normal. There is artifact from posterior fusion hardware in the lumbar spine. IMPRESSION: 1. Fatty infiltration of the liver. 2. No solid liver lesion is seen. 3. There are a few small hepatic cysts. Electronically signed by: Andrei Hammond MD (01/09/2017 2:30 PM) [id number]
== END | disposition home or self-care (01) ==
LOC: KCIC MRI 10:39
PROVIDERS: ATTEND Family Medicine
DX: K76.0 Fatty (change of) liver, not elsewhere classified (principal); K76.89 Other specified diseases of liver
CPT/HCPCS: 47000; 74183; A9585

== ENCOUNTER → 2017-02-09 | Outpatient (CLI) | payer MEDICARE, BC ==
[~2017-02-09] MED LIST changes: -GADOBUTROL 7.5 MMOL/7.5 ML VIAL IV ONE; +methylPREDNISolone ACETATE 40 MG/ML VIAL. ONE; +methylPREDNISolone ACETATE 80 MG/ML VIAL. ONE
--- NOTE | 2017-02-09 21:34 | PAIN ---
DATE OF SERVICE: 02/09/2017 DIAGNOSES: Lumbar radiculopathy with lumbar degenerative disk disease, spinal stenosis and post-lumbar laminectomy syndrome. HISTORY OF PRESENT ILLNESS: The patient is a 66-year-old female who returns for followup status post caudal epidural steroid injection x 1 on 01/14/2017. The patient did very well with this, about 50% improvement overall, still some pain in the bilateral lower extremities and low back, slightly worse on the left now, but present bilaterally with pain radiating from the posterior low back into the posterior gluteus, posterior thighs, posterior calves to the feet with tingling, stabbing, radiating, becoming more severe, pain sharp and shooting, with the pain returning over the past several days, but much better prior to that. The patient reports pain as a 9 on a scale of 10 at its worst, is 7 on average, 5 at its least and is a 7 today. The patient reports no new motor or sensory deficits, no new bowel or bladder incontinence or other complaints. PHYSICAL EXAMINATION: VITAL SIGNS: Today, blood pressure 151/59, pulse 71, respirations are 18, temperature 97.6 degrees Fahrenheit, height is 5 feet, weighs 190 pounds. GENERAL: The patient is awake, alert, oriented, appropriate, very pleasant demeanor. HEENT: Head shows normocephalic, atraumatic. Extraocular movements are intact, symmetrical. Oral cavity: Mucous membranes moist and pink. Dentition is intact. NECK: Shows anterior throat supple without palpable lymphadenopathy noted. Swallow reflex is symmetrical. CHEST: Shows normal with inspection. Breath sounds are clear to auscultation bilaterally. HEART: Shows S1, S2 clear. No murmurs auscultated. ABDOMEN: Soft, obese, nontender, nondistended. No palpable organomegaly noted. No rebound or guarding demonstrated. BACK: Shows spine grossly in the midline with well-healed surgical scar noted in the lumbar distribution. Lumbar paraspinous muscle shows symmetrical on inspection, with palpation shows some moderate tenderness bilaterally, but only diffusely along the low lumbar distribution without radiation, without trigger points or asymmetry. No tenderness over the sacrum or sacroiliac regions. EXTREMITIES: Lower extremities show deep tendon reflexes at 1+ in the patellar and tendo calcaneus tendons are equal. Motor exam is strong with 5/5 dorsiflexion, extension, quads and hamstring flexion and symmetrical. Peripheral pulses are 1+ posterior tibial and dorsalis pedis pulses. No peripheral edema is noted. No clubbing or cyanosis. Options were discussed with the patient. The patient's old chart was reviewed as her current medication regimen updated. Current review of systems updated today as well. We will proceed with a second in the series of caudal approach epidural steroid injection with fluoroscopic guidance. Risks were again discussed including, but not limited to bleeding, infection, possibility of epidural hematoma, subsequent neurologic compromise, dural puncture headache, spinal cord and/or nerve damage, side effects of steroid medication and poor results regarding pain control. The patient understands and wished to proceed. The patient will return to clinic in approximately 2 weeks for followup, was counseled on return appointment, activity level and side effects to be aware of. DIAGNOSES: Lumbar radiculopathy with lumbar spinal stenosis, degenerative disk disease and post-lumbar laminectomy syndrome. PROCEDURE: Caudal approach epidural steroid injection using C-arm fluoroscopic guidance under sterile prep and drape using local anesthetic. MEDICATION INJECTED: A total of 120 mg Depo-Medrol plus 10 mL of preservative-free normal saline and 2 mL of Isovue for contrast. CONDITION AT DISCHARGE: Stable. The patient tolerated the procedure well, had no complications. AKUA LOU MD DR: MARY/benitez JOB#: [id number] / [id number]
== END | disposition home or self-care (01) ==
LOC: PNCL 09:44
PROVIDERS: ATTEND Anesthesiology
DX: M51.16 Intervertebral disc disorders with radiculopathy, lumbar region (principal); M48.061 Spinal stenosis, lumbar region without neurogenic claudication; M96.1 Postlaminectomy syndrome, not elsewhere classified; E78.00 Pure hypercholesterolemia, unspecified; J45.909 Unspecified asthma, uncomplicated; F41.9 Anxiety disorder, unspecified; Z90.49 Acquired absence of other specified parts of digestive tract; Z86.69 Personal history of other diseases of the nervous system and sense organs; Z90.710 Acquired absence of both cervix and uterus; Z87.39 Personal history of other diseases of the musculoskeletal system and connective tissue; Z88.6 Allergy status to analgesic agent; Z88.1 Allergy status to other antibiotic agents; Z91.040 Latex allergy status; Z88.2 Allergy status to sulfonamides; Z88.8 Allergy status to other drugs, medicaments and biological substances; Z91.048 Other nonmedicinal substance allergy status
CPT/HCPCS: 62323; J1030; J1040

== ENCOUNTER → 2017-03-27 | Outpatient (CLI) | payer MEDICARE, BC | END | disposition home or self-care (01) | LOC: PNCL 12:58 | DX: M51.16 Intervertebral disc disorders with radiculopathy, lumbar region (principal); M48.061 Spinal stenosis, lumbar region without neurogenic claudication | CPT/HCPCS: G0463 ==

== ENCOUNTER 2017-04-04 10:34 | Day surgery (SDC) | payer MEDICARE, BC ==
[2017-04-04] MEDS ORDERED: POVIDONE-IODINE 10% TOPICAL OINTMENT 28GM TUBE. TP ×2 (10:47)
[2017-04-04] MEDS ORDERED: methylPREDNISolone ACETATE 40 MG/ML VIAL. ×2 (10:47)
[2017-04-04] MEDS ORDERED: DEXAMETHASONE SOD PHOS 4 MG/ML VIAL ×2 (10:47)
[2017-04-04] MEDS ORDERED: IV RINGERS,LACTATED 1000ML 1,000 ML IV ×2 (11:00)
[2017-04-04] MEDS ORDERED: PROPOFOL 20 ML IV ×4 (11:07→12:32)
[2017-04-04] MEDS ORDERED: LIDOCAINE 2% PF Vial for OR 5 ML VIAL. ×2 (11:07)
[2017-04-04] MEDS ORDERED: MIDAZOLAM HCL/PF 2 MG/2 ML VIAL. ×2 (11:08)
[2017-04-04] MEDS ORDERED: CLINDAMYCIN 900MG PREMIX 50 ML IV ×2 (11:09)
[2017-04-04] MEDS ORDERED: LIDOCAINE 1% PF 2 ML VIAL. ×2 (11:30)
[2017-04-04] MEDS: BUPIVACAINE MPF 0.5% 30 ML VIAL. ×2 (12:08)
[2017-04-04] MEDS: LIDOCAINE 1% PF 30 ML VIAL. ×2 (12:08)
== END 2017-04-04 14:25 | disposition home or self-care (01) ==
LOC: SURG 10:34
DX: M20.21 Hallux rigidus, right foot (principal); E78.00 Pure hypercholesterolemia, unspecified; K21.9 Gastro-esophageal reflux disease without esophagitis; E66.9 Obesity, unspecified; M19.90 Unspecified osteoarthritis, unspecified site; F41.9 Anxiety disorder, unspecified; Z88.0 Allergy status to penicillin; Z90.710 Acquired absence of both cervix and uterus; Z86.69 Personal history of other diseases of the nervous system and sense organs; Z87.39 Personal history of other diseases of the musculoskeletal system and connective tissue; Z96.651 Presence of right artificial knee joint; Z88.2 Allergy status to sulfonamides; Z88.8 Allergy status to other drugs, medicaments and biological substances; Z88.1 Allergy status to other antibiotic agents; Z91.040 Latex allergy status
CPT/HCPCS: 28291; C1713; J1030; J1100; J2250; J2704; J3490

== ENCOUNTER 2017-07-10 08:24 | Emergency (ER) | payer OTHER, MEDICARE, BC | END 2017-07-10 11:30 | disposition home or self-care (01) | LOC: ER 08:24 | DX: S09.90XA Unspecified injury of head, initial encounter (principal); M54.2 Cervicalgia; M25.571 Pain in right ankle and joints of right foot; G20 Parkinson's disease; E78.00 Pure hypercholesterolemia, unspecified; J45.909 Unspecified asthma, uncomplicated; K21.9 Gastro-esophageal reflux disease without esophagitis; K58.9 Irritable bowel syndrome, unspecified; Z88.1 Allergy status to other antibiotic agents; Z88.2 Allergy status to sulfonamides; Z88.5 Allergy status to narcotic agent; Z88.8 Allergy status to other drugs, medicaments and biological substances; Z91.040 Latex allergy status; W18.09XA Striking against other object with subsequent fall, initial encounter; Y93.89 Activity, other specified; Y99.8 Other external cause status; Y92.89 Other specified places as the place of occurrence of the external cause | CPT/HCPCS: 29515; 70450; 72125; 72128; 72131; 73610; 99284-25 ==

== ENCOUNTER 2017-10-06 11:30 | Day surgery (SDC) | payer MEDICARE, BC ==
[~2017-10-06 11:30] MED LIST changes: -ALBU0.63 NEB; -ASPI-482 PO; -AZEL137S3 NS; -BIOT10TA PO; -BRIM5DRO3 EACHEYE; +BUPIVACAINE MPF 0.25% 30 ML VIAL.; -COCO1000 PO; -ESTR0.62 PO; -FAMO-63 PO; -FERR-26 PO; -FLUC50TA3 PO; -GABA-586 PO; -GABA600T2 PO; -GLUC100018 PO; -HYDR15SO4 PO; -IBUP-1060 PO; -IPRA0.2S5 IH; -L.AC1CAP6 PO; -LACT20SO PO; -LATA2.5D3 EACHEYE; +LIDOCAINE 1% PF 2 ML VIAL. ID; -META-21 PO; -MULT-208 PO; -NAPR500T4 PO; -OMEP20CA9 PO; -OMEP40CA5 PO; +ONDANSETRON PF 4 MG/2 ML VIAL. IV; -PRAM0.125 PO; -PRAM0.255 PO; -PRED20TA PO; -PRED50TA PO; +PROCHLORPERAZINE 10 MG/2 ML VIAL. IV; -SIMV40TA3 PO; -TRAM50TA PO; +fentaNYL PF VIAL 100 MCG/2 ML VIAL IV; -methylPREDNISolone ACETATE 40 MG/ML VIAL. ONE; -methylPREDNISolone ACETATE 80 MG/ML VIAL. ONE
[2017-10-06] MEDS ORDERED: ceFAZolin 2GM PREMIX 2 GM/50 ML BAG IV (12:00)
[2017-10-06] MEDS ORDERED: BUPIVACAINE-EPI 0.25%-1:200000 50 ML VIAL. (12:04)
[2017-10-06] MEDS: IV RINGERS,LACTATED 1000ML 1,000 ML IV (12:06)
[2017-10-06] MEDS ORDERED: PROPOFOL 50 ML IV ×2 (12:08→12:11)
[2017-10-06] MEDS ORDERED: fentaNYL PF VIAL 100 MCG/2 ML VIAL (12:08)
[2017-10-06] MEDS ORDERED: MIDAZOLAM HCL/PF 2 MG/2 ML VIAL. (12:08)
[2017-10-06] MEDS: SCOPOLAMINE 1.5MG PATCH. TD (12:15)
[2017-10-06] MEDS ORDERED: LIDOCAINE 2% PF Vial for OR 5 ML VIAL. (12:15)
[2017-10-06] MEDS ORDERED: PROPOFOL 20 ML IV (12:15)
[2017-10-06] MEDS: BUPIVACAINE-EPI 0.25%-1:200000 50 ML VIAL. (13:25)
[2017-10-06] MEDS: traMADol 50 MG TABLET PO (15:09)
[2017-10-06] MEDS: fentaNYL PF VIAL 100 MCG/2 ML VIAL IV (15:09)
== END 2017-10-06 16:36 | disposition home or self-care (01) ==
LOC: SURG 11:30
DX: G56.02 Carpal tunnel syndrome, left upper limb (principal); G56.22 Lesion of ulnar nerve, left upper limb; E78.00 Pure hypercholesterolemia, unspecified; J45.909 Unspecified asthma, uncomplicated; F41.9 Anxiety disorder, unspecified; M19.90 Unspecified osteoarthritis, unspecified site; Z90.49 Acquired absence of other specified parts of digestive tract; Z96.651 Presence of right artificial knee joint; Z90.710 Acquired absence of both cervix and uterus; Z98.890 Other specified postprocedural states; Z82.61 Family history of arthritis; Z79.899 Other long term (current) drug therapy; Z88.1 Allergy status to other antibiotic agents; Z88.2 Allergy status to sulfonamides; Z91.040 Latex allergy status; Z91.048 Other nonmedicinal substance allergy status; Z88.5 Allergy status to narcotic agent; Z88.8 Allergy status to other drugs, medicaments and biological substances; Z98.49 Cataract extraction status, unspecified eye; Z96.1 Presence of intraocular lens; Z86.711 Personal history of pulmonary embolism; E66.9 Obesity, unspecified; Z90.79 Acquired absence of other genital organ(s); Z90.721 Acquired absence of ovaries, unilateral; Z79.82 Long term (current) use of aspirin; H40.9 Unspecified glaucoma
CPT/HCPCS: 64718; J0690; J2001; J2250; J2704; J3010; J3490

== ENCOUNTER → 2017-12-20 | Outpatient (CLI) | payer MEDICARE, BC ==
[2017-10-06 15:23] VITALS: BP 122/61
[~2017-12-20] MED LIST changes: +ALBU0.63 NEB; +ASPI-482 PO; +AZEL137S3 NS; +BIOT10TA PO; +BRIM5DRO3 EACHEYE; -BUPIVACAINE MPF 0.25% 30 ML VIAL.; +CELE200C PO; +COCO1000 PO; +ESTR0.62 PO; +FAMO-63 PO; +FERR325T14 PO; +FLUC50TA3 PO; +FLUT9.9S NS; +GABA-586 PO; +GABA600T2 PO; +GLUC100018 PO; +HYDR-2762 PO; +HYDR15SO4 PO; +IBUP-1060 PO; +IPRA0.2S5 IH; +L.AC1CAP6 PO; +LACT20SO PO; +LATA2.5D3 EACHEYE; -LIDOCAINE 1% PF 2 ML VIAL. ID; +META-21 PO; +MULT-208 PO; +NAPR-514 PO; +OMEP20CA9 PO; +OMEP40CA5 PO; -ONDANSETRON PF 4 MG/2 ML VIAL. IV; +PRAM0.125 PO; +PRAM0.255 PO; +PRED20TA PO; +PRED50TA PO; -PROCHLORPERAZINE 10 MG/2 ML VIAL. IV; +SIMV40TA3 PO; +TRAM50TA PO; -fentaNYL PF VIAL 100 MCG/2 ML VIAL IV
--- NOTE | 2017-12-20 10:56 | KCIC ---
MRI of the lumbar spine without contrast 12/20/2017 CLINICAL HISTORY: Low back pain which radiates down both legs, right greater than left. History of previous lumbar spine surgery. TECHNIQUE: Unenhanced T1-weighted and T2-weighted sagittal and axial and inversion recovery sagittal images of the lumbar spine were obtained. FINDINGS: Comparison is made to a CT scan of the lumbar spine dated 07/10/2017. Mild S-shaped curvature of the thoracolumbar spine is seen. The patient is post laminectomy, discectomy and fusion using pedicle screws, stabilizing rods and bone graft material at L3-4 and L4-5. A septated fluid collection is seen within the laminectomy site which measures 3.4 x 2.9 x 1.4 cm in transverse, craniocaudal and AP dimensions. This may represent a seroma. A pseudomeningocele is not excluded. Degenerative signal changes and loss of height are seen involving the L2-3 and L5-S1 discs. Degenerative signal changes are seen within the marrow surrounding these discs. The conus medullaris is normal morphology, position, and signal characteristics. At the L1-2 disc space there is a mild generalized disc bulge. Degenerative changes are seen involving the facet joints bilaterally. There is mild ligamentum flavum hypertrophy bilaterally. These findings do not result in significant central spinal canal or neural foraminal stenosis. At the L2-3 disc space there is a mild to moderate generalized disc bulge. Degenerative changes are seen involving the facet joints bilaterally. There is mild to moderate ligamentum flavum hypertrophy bilaterally. These findings when combined result in mild central spinal canal stenosis. Mild right greater than left neural foraminal stenosis is seen. At the L3-4 and L4-5 levels postsurgical changes are seen as outlined above. No area of significant central spinal canal or neural foraminal stenosis is seen. At the L5-S1 disc space there is a mild generalized disc bulge. This is eccentric to the left. Degenerative changes are seen involving the facet joints bilaterally. There is mild ligamentum flavum hypertrophy bilaterally. These findings do not result in significant central spinal canal stenosis. Mild left neural foraminal stenosis is seen. The right neural foramen is patent. IMPRESSION: 1. Post laminectomy and fusion at L3-4 and L4-5. 2. The changes of degenerative disc disease are seen throughout the lumbar spine. These findings result in mild central spinal canal stenosis at L2-3. Mild right greater than left neural foraminal stenosis is seen at L2-3. Mild left neural foraminal stenosis is seen at L5-S1. Electronically signed by: Tom Hoffmann MD (12/20/2017 10:53 AM) [facility]
== END | disposition home or self-care (01) ==
LOC: KCIC MRI 09:32
PROVIDERS: ATTEND Neurological Surgery
DX: M48.07 Spinal stenosis, lumbosacral region (principal); M51.36 Other intervertebral disc degeneration, lumbar region
CPT/HCPCS: 72148

== ENCOUNTER → 2018-02-26 | Outpatient (CLI) | payer MEDICARE, BC ==
[2017-10-06 15:23] VITALS: BP 122/61
[~2018-02-26] MED LIST changes: -GABA-586 PO; +GABA300C18 PO; -HYDR-2762 PO; +HYDR-2765 PO; -HYDR15SO4 PO; +HYDR15SO6 PO
--- NOTE | 2018-02-26 14:29 | KCIC ---
EXAM: Chest, 2 views. HISTORY: Bronchitis. COMPARISON: None. FINDINGS: 2 views of the chest are obtained. There is no infiltrate, pleural effusion or pneumothorax. The heart is normal in size. There are surgical clips within the upper abdomen. There is lumbar spinal fusion instrumentation. IMPRESSION: No acute pulmonary finding. Electronically signed by: Marian Pineda MD (02/26/2018 2:25 PM) [place] [id number]
== END | disposition home or self-care (01) ==
LOC: KCIC 11:58
PROVIDERS: ATTEND Nurse Practitioner Family
DX: J40 Bronchitis, not specified as acute or chronic (principal)
CPT/HCPCS: 71046

== ENCOUNTER 2018-04-10 09:10 | Day surgery (SDC) | payer MEDICARE, BC ==
[~2018-04-10] VITALS: Ht 152.4 cm; Wt 98.0 kg
[~2018-04-10 09:10] MED LIST changes: +BUPIVACAINE MPF 0.5% 30 ML VIAL. ONE; +CLINDAMYCIN 900MG PREMIX 50 ML IV PRN; +DEXAMETHASONE SOD PHOS 4 MG/ML VIAL ONE; +ESCITALOPRAM OX20 MG PO; -GABA600T2 PO; +GABA600T7 PO; +IV RINGERS,LACTATED 1000ML 1,000 ML IV SCH; +LIDOCAINE 1% 20 ML VIAL. ONE; +LIDOCAINE 1% PF 2 ML VIAL. ID PRN; +POVIDONE-IODINE 10% TOPICAL OINTMENT 28GM TUBE. TP ONE; +PROCHLORPERAZINE 10 MG/2 ML VIAL. IV PRN; +fentaNYL PF VIAL 100 MCG/2 ML VIAL IV PRN; +methylPREDNISolone ACETATE 40 MG/ML VIAL. ONE
[2018-04-10] MEDS ORDERED: MIDAZOLAM HCL/PF 2 MG/2 ML VIAL. ONE (09:41)
[2018-04-10] MEDS ORDERED: PROPOFOL 20 ML IV ONE (09:41)
[2018-04-10] MEDS ORDERED: LIDOCAINE 2% PF Vial for OR 5 ML VIAL. ONE (09:41)
[2018-04-10] MEDS ORDERED: PROPOFOL 50 ML IV ONE ×2 (09:41→12:18)
[2018-04-10] MEDS ORDERED: fentaNYL PF VIAL 100 MCG/2 ML VIAL ONE (09:41)
[2018-04-10 09:57] LABS: BASO % 0 % (0-3); EOS # 0.1 x10^3/uL (0.0-0.7); EOS % 3 % (0-3); HEMATOCRIT 37.7 % (36.0-47.0); HEMOGLOBIN 12.1 g/dL (12.0-15.5); LYMPH # 1.1 x10^3/uL (1.0-4.8); LYMPH % 23 % (24-48); MEAN CORPUSCULAR HEMOGLOBIN 28 pg (25-35); MEAN CORPUSCULAR HGB CONC 32 g/dL (31-37); MEAN CORPUSCULAR VOLUME 88 fL (79-100); MONO # 0.3 x10^3/uL (0.0-1.1); MONO % 7 % (0-9); NEUT % 66 % (31-73); PLATELET COUNT 254 x10^3/uL (140-400); RED BLOOD COUNT 4.31 x10^6/uL (3.50-5.40); RED CELL DISTRIBUTION WIDTH 14.4 % (11.5-14.5); WHITE BLOOD COUNT 4.5 x10^3/uL (4.0-11.0)
[2018-04-10 10:03] LABS: CALCIUM 9.4 mg/dL (8.5-10.1); CREATININE 0.9 mg/dL (0.6-1.0); GFR 61.9; POTASSIUM 4.2 mmol/L (3.5-5.1)
[2018-04-10 10:08] LABS: ALBUMIN 3.7 g/dL (3.4-5.0); TOTAL BILIRUBIN 0.7 mg/dL (0.2-1.0); TOTAL PROTEIN 7.5 g/dL (6.4-8.2)
--- NOTE | 2018-04-10 11:43 | HP ---
ADMIT DATE: 04/10/2018 CHIEF COMPLAINT: Left first toe bunion/hammertoe. HISTORY OF PRESENT ILLNESS: The patient is a pleasant 68-year-old female who appears younger than her stated age. She has a bunion on her left toe. She has also got little hammertoe and Dr. Luu, is her sas developer, who is going to operate on that today. We have been requested to do a preop evaluation and make sure she is clinically stable, which she is, currently seeing the patient in the preop area. PAST MEDICAL HISTORY: Malignant hyperthermia with anesthetics, and degenerative joint disease of the toes and DJD of the back as well and osteoarthritis. ALLERGIES: MULTIPLE INCLUDING ADHESIVE TAPE, AUGMENTIN, CODEINE, ERYTHROMYCIN, MACROBID, MORPHINE, NEOSPORIN AND SULFA. FAMILY HISTORY: Hypertension and colon cancer in the family. SOCIAL HISTORY: She is retired. 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 She does not drink, smoke or take drugs. MEDICATIONS: Reviewed. She is on glycosamine, doxycycline, Celebrex, Cipro, coconut oil, biotin, metolazone, gabapentin, fluticasone, omeprazole, aspirin, Premarin, simvastatin and Ultram. REVIEW OF SYSTEMS: GENERAL: No history of weight change, weakness or fevers. SKIN: No bruising, hair changes or rashes. EYES: No blurred, double or loss of vision. NOSE AND THROAT: No history of nosebleeds, hoarseness or sore throat. HEART: No history of palpitations, chest pain or shortness of breath on exertion. LUNGS: Denies cough, hemoptysis, wheezing or shortness of breath. GASTROINTESTINAL: Denies changes in appetite, nausea, vomiting, diarrhea or constipation. GENITOURINARY: No history of frequency, urgency, hesitancy or nocturia. NEUROLOGIC: Denies history of numbness, tingling, tremor or weakness. PSYCHIATRIC: No history of panic, anxiety or depression. ENDOCRINE: No history of heat or cold intolerance, polyuria or polydipsia. EXTREMITIES: She complains of left toe pain. PHYSICAL EXAMINATION: VITAL SIGNS: Stable. GENERAL: She is alert, cooperative, pleasant. Her daughter is present and is a good support for her. HEENT: She has got bilateral cataract replacements and they are stable. HEART: Her heart tones were normal. ABDOMEN: Soft. EXTREMITIES: The left toe is somewhat deformed not severely, but it does hurt to palpation. ENDOCRINE: No thyromegaly. PSYCHIATRIC: She seems stable. SKIN: No obvious rashes. ASSESSMENT AND PLAN: Left toe bunion and intractable pain. The patient is going for surgery today. From my standpoint, she looks great, cleared for surgery from my standpoint. Postoperatively, she will need wound care, will continue her home meds. If she needs to stay in the hospital, we can assist with that. Thank you very much for allowing us to participate in the care of this nice lady. DONALDO FOUNTAIN DO DR: DANIEL/benitez JOB#: [id number] / [id number] VERONICA Nur DPM, STEPHEN MD ____, ____
--- NOTE | 2018-04-10 13:25 | PDOC4 ---
OPERATIVE NOTE: Post-op Note: Date: 04/10/2018 Surgeron: Dr. Baldwin Powder Press Operator: Dr. Schwarz Diagnosis: Hallux valgus with 2nd hammer digit, left foot. Procedure: Bentley Bunionectomy with 2nd hammer digit correction, left foot. Anesthesia: MAC sedation with local anesthesia - 18ml of 1:1 mixture of 1% lidocaine plain and 0.5% marcaine plain Materials used: [employer] medical 2.0 18mm cannulated screw x 1 and 0.045 k-wire Blood loss: Minimal - 5ml Complications: None Patient tolerated the procedure and anesthesia well with vital signs stable. VERONICA BALDWIN DPM Apr 10, 2018 13:25
[2018-04-10 13:30] VITALS: BP 124/58
--- NOTE | 2018-04-10 13:32 | DISCH ---
DISCHARGE INSTRUCTIONS Condition on Discharge Condition on Discharge: Stable Activity After Discharge Activity Instructions for Disc: Bedrest today, Other, see below (Minimal weight bearing in CAM Boot Walker at all times.) Bathing Instructions: No Tub Bath until see Lifting Instructions after Dis: No heavy lifting, No pulling or pushing, Do not lift >10 pounds Driving Instructions after Dis: Do not drive Weight Bearing Status after Di: Other, see below (Heel weight bearing in CAM Walker.) Diet after Discharge Diet after Discharge: Regular Diet Texture: Regular Wound Incision Care Wound/Incision Care: Do not change dressing Treatment/Equipment after DC Adaptive Equipment Issued: None VERONICA BALDWIN DPM Apr 10, 2018 13:32
[2018-04-10] MEDS ORDERED: TRAM50TA PO (13:35)
--- NOTE | 2018-04-10 17:56 | OP ---
DATE OF SURGERY: 04/10/2018 PREOPERATIVE DIAGNOSES: Hallux abductovalgus and second hammer digit, second digit, left foot. POSTOPERATIVE DIAGNOSES: Hallux abductovalgus and second hammer digit, second digit, left foot. PROCEDURE: Bentley bunionectomy with hammertoe correction, second digit, left foot. SURGEON: Veronica Baldwin DPM COMPLICATIONS: None. INDICATIONS: The patient presented to clinic with pain in the bunion area and the hammertoe, second digit, left foot. The patient states that conservative treatment did not help. The patient would like surgical treatment. The procedure, its risks, postop course and complications were discussed in detail with the patient. The patient understands and elects to proceed with the surgery. Consent was signed and placed in the chart. All questions were answered in detail, procedure as performed. DESCRIPTION OF PROCEDURE: The patient was brought to the operating room and placed on the operating room table in a supine position. After the sedation was performed by Anesthesia, local anesthetic was administered in a Bennett block manner as well as second digit local block using a total of 18 mL of 1:1 mixture of 0.5% Marcaine plain and 1% lidocaine plain. Next, the left foot was prepped and draped in an aseptic manner. A left ankle tourniquet set at 250 mmHg was applied. The procedure was performed in the following manner. The tourniquet was inflated to 250 mmHg. Next, a linear incision measuring about 3 cm was performed on the dorsal aspect of the first metatarsophalangeal joint to the interphalangeal joint, left hallux just medial to the EHL tendon. The incision was deepened to the bone with care being taken to protect the neurovascular bundle. Next, the soft tissue was reflected off the proximal phalanx of the left hallux and the soft tissue was retracted back using a sagittal saw, a triangular bone was resected out with the apex on the lateral aspect of the proximal phalanx and the base of the triangle measuring about 2 mm at the medial aspect of the proximal phalanx. Next, the proximal phalanx at the osteotomy site was combined and fixated using a 2-0 cannulated screw from [employer]. Good fixation was obtained. The 2-0 screw was 18 mm long. The area was irrigated copiously and the soft tissue was sutured together using 3-0 Vicryl and the skin was sutured together using 4-0 nylon. The hallux was in rectus position. Next, the attention was drawn to the second digit where a linear incision measuring about 1 cm was performed dorsally at the PIPJ of the left second digit. The incision was deepened to the joint capsule of the interphalangeal joint and a horizontal incision was performed resecting the EHL extensor tendon of the second digit. Next, the tendon was reflected and a capsulotomy was performed at the proximal interphalangeal joint of the second digit with visualization of the head of the proximal phalanx. The head was resected out measuring about 3 mm. Next, a 0.045 K-wire was used to fixate the second digit in a rectus position with the distal aspect of the K-wire protruding out of the second digit distal tip. The wire was cut to appropriate position and Jurgan ball was attached to the tip to protect the wire. The incision site was irrigated copiously with sterile saline solution and the extensor tendon was then sutured together using 3-0 Vicryl. The skin was sutured together with 4-0 nylon. The surgical site was bandaged with Betadine ointment and Adaptic, 4 x 4 gauze, Kerlix and Pawel wrap. The tourniquet was deflated after 1 hour and 2 minutes with good capillary fill time to all the digits noted to the left foot. The patient tolerated the anesthesia and procedure well. The patient was transferred back to the PACU with vital signs stable. The patient is to be minimal weightbearing as tolerated in a Cam walker boot at all times until followup. The patient was given prescription for pain medication for postop pain. The patient to follow up as an outpatient in clinic within 1 week. VERONICA BALDWIN DPM DR: LIYA/benitez JOB#: [id number] / [id number]
== END 2018-04-10 13:58 | disposition home or self-care (01) ==
LOC: SURG 09:10
PROVIDERS: ATTEND Podiatrist
DX: M20.12 Hallux valgus (acquired), left foot (principal); M20.42 Other hammer toe(s) (acquired), left foot; Z88.1 Allergy status to other antibiotic agents; Z88.2 Allergy status to sulfonamides; Z88.5 Allergy status to narcotic agent; Z88.8 Allergy status to other drugs, medicaments and biological substances; Z91.040 Latex allergy status; Z91.048 Other nonmedicinal substance allergy status; Z79.899 Other long term (current) drug therapy; Z79.82 Long term (current) use of aspirin; Z79.01 Long term (current) use of anticoagulants; Z82.49 Family history of ischemic heart disease and other diseases of the circulatory system; Z80.0 Family history of malignant neoplasm of digestive organs; M19.072 Primary osteoarthritis, left ankle and foot; M19.071 Primary osteoarthritis, right ankle and foot
CPT/HCPCS: 28285; 28298; 36415; 80053; 85025; 85730; C1713; J2001; J2250; J2704; J3010; J3490; J1030; J1100

== ENCOUNTER → 2018-04-16 | Outpatient (CLI) | payer MEDICARE, BC ==
[2018-04-10 13:30] VITALS: BP 124/58
[~2018-04-16] MED LIST changes: -BUPIVACAINE MPF 0.5% 30 ML VIAL. ONE; -CLINDAMYCIN 900MG PREMIX 50 ML IV PRN; -DEXAMETHASONE SOD PHOS 4 MG/ML VIAL ONE; -IV RINGERS,LACTATED 1000ML 1,000 ML IV SCH; -LIDOCAINE 1% 20 ML VIAL. ONE; -LIDOCAINE 1% PF 2 ML VIAL. ID PRN; +OMEP20CA10 PO; -OMEP20CA9 PO; -POVIDONE-IODINE 10% TOPICAL OINTMENT 28GM TUBE. TP ONE; -PROCHLORPERAZINE 10 MG/2 ML VIAL. IV PRN; -fentaNYL PF VIAL 100 MCG/2 ML VIAL IV PRN; -methylPREDNISolone ACETATE 40 MG/ML VIAL. ONE
--- NOTE | 2018-04-17 08:53 | KCIC ---
EXAM: MRI left shoulder Without contrast DATE: 04/16/2018 5:00 PM COMPARISON: None INDICATION: Left shoulder pain. Fall on outstretched hand. Decreased range of motion. TECHNIQUE: Multiplanar, multisequence MRI of the left shoulder was performed without contrast. FINDINGS: Of note, the exam is limited by motion artifact despite repeating sequences. Mild AC joint degenerative changes are seen with associated AC joint edema. Small glenohumeral joint effusion. Subacromial-subdeltoid bursal edema likely bursitis. Moderate increased signal within the supraspinatus and infraspinatus tendons consistent with moderate tendinosis. There is a suspected shallow articular sided tear of the posterior fibers of the supraspinatus tendon approximately 1 cm from the rotator cuff attachment involving 10% tendon thickness. Rotator cuff muscle bulk and signal is normal, without fatty atrophy. Moderate increased signal within the intra-articular segment long head biceps tendon consistent with moderate tendinosis. The extra articular long head biceps tendon is seen within the bicipital groove. Evaluation for labral tear is limited on this nonarthrographic study. Within these constraints, no discrete labral tear is identified. Soft tissue density within the rotator interval may be seen with adhesive capsulitis. No fracture or AVN. Survey of articular cartilage within normal limits. Soft tissue swelling of the posterior lateral aspect of the left shoulder possibly from soft tissue contusion/hematoma. IMPRESSION: 1. Short segment shallow articular sided tear of the supraspinatus tendon approximately 1 cm from the attachment. This is a background of moderate supraspinatus and infraspinatus tendinosis. 2. Moderate intra-articular long head biceps tendinosis. 3. Mild soft tissue prominence at the rotator interval, nonspecific but may be seen with adhesive capsulitis. 4. Soft tissue contusion dorsal/lateral left shoulder. Electronically signed by: Tj Stark MD (04/17/2018 8:50 AM) [facility]
== END | disposition home or self-care (01) ==
LOC: KCIC MRI 16:22
PROVIDERS: ATTEND Family Medicine
DX: S46.002A Unspecified injury of muscle(s) and tendon(s) of the rotator cuff of left shoulder, initial encounter (principal); S40.012A Contusion of left shoulder, initial encounter; M75.102 Unspecified rotator cuff tear or rupture of left shoulder, not specified as traumatic; M25.412 Effusion, left shoulder; M19.012 Primary osteoarthritis, left shoulder; X58.XXXA Exposure to other specified factors, initial encounter; Y93.89 Activity, other specified; Y92.89 Other specified places as the place of occurrence of the external cause; Y99.8 Other external cause status
CPT/HCPCS: 73221

== ENCOUNTER → 2018-08-02 | Outpatient (CLI) | payer MEDICARE, BC ==
--- NOTE | 2018-08-02 12:19 | RAD ---
Left lower extremity venous doppler ultrasound Indication: Left leg swelling Technique: Color Doppler, grayscale, and spectral waveform analysis is used to evaluate the left femoral and popliteal veins. Findings: No evidence of deep venous thrombosis. Normal response to augmentation, normal compressibility and normal phasicity is demonstrated. Visualized calf veins are patent. Impression: Negative for deep venous thrombosis Electronically signed by: Hong Villalobos MD (08/02/2018 12:16 PM) [facility]
== END | disposition home or self-care (01) ==
LOC: US 11:20
PROVIDERS: ATTEND Family Medicine
DX: M79.89 Other specified soft tissue disorders (principal)
CPT/HCPCS: 93971

== ENCOUNTER → 2018-08-14 | Outpatient (CLI) | payer MEDICARE, BC ==
--- NOTE | 2018-08-14 17:28 | KCIC ---
Left hip, 2 views, 08/14/2018: HISTORY: Chronic hip pain There is moderate narrowing of the left knee joint with mild marginal spurring. No fracture or dislocation is identified. The periarticular soft tissues are unremarkable. IMPRESSION: Moderate osteoarthritis at the left hip. Electronically signed by: Yao Ann MD (08/14/2018 5:25 PM) [facility]
== END | disposition home or self-care (01) ==
LOC: KCIC 13:03
PROVIDERS: ATTEND Internal Medicine Rheumatology
DX: M16.12 Unilateral primary osteoarthritis, left hip (principal); R70.0 Elevated erythrocyte sedimentation rate; G89.29 Other chronic pain
CPT/HCPCS: 73502

== ENCOUNTER → 2018-08-27 | Outpatient (CLI) | payer MEDICARE, BC ==
--- NOTE | 2018-08-27 14:28 | KCIC ---
MR of the left hip HISTORY: Left hip pain for 8 months. Arthritis. Motion. TECHNIQUE: Routine multiplanar sequences are obtained. FINDINGS: Moderate motion degradation. Marrow edema at the posterior left femoral head. No overtly aggressive bone destruction. No evidence of femoral head osteonecrosis. Small left hip joint effusion. At least mild degenerative changes at the left hip with cartilage thinning. Suboptimal labral visualization due to motion but degeneration or tearing is suspected. Gluteus minimus and medius tendons are intact. Hamstring tendon intact. Iliopsoas tendon intact. Rectus femoris tendon attachment intact. Large [id number] coronal survey sequence demonstrates degenerative changes at the right hip with acetabular subchondral cyst. Postsurgical changes at the spine. IMPRESSION: 1. Left hip osteoarthritis. 2. Small left hip joint effusion. 3. Labral degeneration versus tear. 4. Motion degradation. Electronically signed by: Hong Villalobos MD (08/27/2018 2:25 PM) [facility]
--- NOTE | 2018-08-27 16:17 | KCIC ---
2 VIEW STUDY OF THE LEFT KNEE Clinical indications: Posterior left knee pain for 4 weeks. FINDINGS: No acute fracture or dislocation or lytic process is evident. Mild degenerative joint space narrowing and minimal spurring of the medial tibiofemoral joint compartment is seen. A postsurgical tunnel is present within the proximal tibia consistent with an ACL reconstruction. However, the femoral tunnel is identified. Correlation with surgical history is needed. There is a small left knee joint effusion present. There is minimal degenerative spurring of the patellofemoral joint compartment. IMPRESSION: No acute osseous abnormality. Small left knee joint effusion. Mild degenerative osteoarthritis of the patellofemoral joint compartment and the medial tibiofemoral joint compartment. 2 VIEW STUDY OF THE LEFT FOOT Clinical indications: Left foot pain for 4 weeks. FINDINGS: Osteotomy or fracture with screw fixation of the first proximal phalanx is seen. The osteotomy or fracture line is still evident and therefore is not healed. There is articular surface distraction of 2 mm. Distal osteotomy of the second proximal phalanx is seen. Moderate joint effusion of the first metatarsal phalangeal joint is seen. Small plantar spur of of calcaneus is seen IMPRESSION: Postoperative changes of the first proximal phalanx and the second proximal phalanx. The osteotomy or fracture of the first proximal phalanx is nonhealed. There is a moderate-sized joint effusion of the first metatarsal phalangeal joint. There is degenerative spurring and joint space narrowing of the first metatarsal phalangeal joint. 2 VIEW STUDY OF THE RIGHT FOOT: INDICATIONS: Right foot pain for 4 weeks. FINDINGS: No acute fracture or dislocation or lytic process is evident. Postoperative changes with placement of joint prosthesis or fusion device within the first metatarsal phalangeal joint is evident. There is soft tissue swelling or joint effusion present here. No periosteal reaction is evident. Moderate plantar spur of the calcaneus is evident. IMPRESSION: Postoperative changes of the first metatarsal phalangeal joint with soft tissue swelling or joint effusion. Electronically signed by: Karsten Ryder MD (08/27/2018 4:14 PM) [place] [id number]
== END | disposition home or self-care (01) ==
LOC: KCIC MRI 09:48
PROVIDERS: ATTEND Internal Medicine Rheumatology
DX: M19.072 Primary osteoarthritis, left ankle and foot (principal); M17.12 Unilateral primary osteoarthritis, left knee; M25.475 Effusion, left foot; M77.52 Other enthesopathy of left foot and ankle; M77.31 Calcaneal spur, right foot; M25.462 Effusion, left knee; M25.552 Pain in left hip
CPT/HCPCS: 73560; 73620; 73721

== ENCOUNTER → 2018-09-17 | Outpatient (CLI) | payer MEDICARE, BC ==
--- NOTE | 2018-09-18 16:42 | KCIC ---
Bilateral digital screening mammograms with 3-D tomosynthesis: Reason for examination: Routine screening. Comparison is made to previous studies dated 06/02/2016 and 06/20/2014. Bilateral mammograms in CC and oblique projections were obtained with 2-D imaging and 3-D tomosynthesis imaging on a Siemens Inspiration unit and reviewed on the workstation. Interpretation was made with the benefit of CAD. The skin and nipples show no abnormalities. No abnormal axillary lymph nodes are seen. The breast parenchyma shows scattered fatty and fibroglandular density. (Breast density: Category B.) There appear to be clustered calcifications present posterior medially at approximately the 1:00 C position of the right breast. Further evaluation with coned magnification views is recommended. There are no other new dominant masses, suspicious calcifications or architectural distortion. Impression: Clustered calcifications located posteriorly at the 1:00 C position of the right breast. Recommend further evaluation with coned magnification views. BI-RADS Category 0: Incomplete. Needs additional imaging evaluation. "Our facility is accredited by the [employer] Mammography [employer]." This patient's information has been entered into a reminder system for the patient to be notified with the results of her examination and a target date for the next mammogram. Electronically signed by: Kylie Nuñez MD (09/18/2018 4:39 PM) [id number]
== END | disposition home or self-care (01) ==
LOC: KCIC MAMMO 12:05
PROVIDERS: ATTEND Family Medicine
DX: Z12.31 Encounter for screening mammogram for malignant neoplasm of breast (principal); N64.89 Other specified disorders of breast
CPT/HCPCS: 77063; 77067

== ENCOUNTER → 2018-09-27 | Outpatient (CLI) | payer MEDICARE, BC ==
[~2018-09-27] MED LIST changes: +ACET-704 PO; +ALBU2.5V8 INH; +CALC600T4 PO; +DICL100G18 TP; +FURO20TA3 PO; +IPRA3AMP29 NEB; +LEXAPRO20 MG PO; +LORA10TA68 PO; +MAGN400C PO; +ONDA4TAB12 PO; +OXYC1TAB15 PO; +POTA20TA82 PO
--- NOTE | 2018-09-27 10:13 | KCIC ---
Right breast diagnostic digital mammograms: Reason for examination: Right breast calcifications. Comparison is made to previous studies dated 09/17/2018. Magnification views were obtained in CC and lateral projections. With these additional views, clustered calcifications persists which have an indeterminate appearance but DCIS cannot be excluded. Further evaluation with stereotactic biopsy should be attempted. Calcifications are however close to the chest wall and may be too far posterior for stereotactic biopsy and needle localization excisional biopsy may be necessary. IMPRESSION: Cluster of calcifications posteriorly at the 1:00 C position of the right breast. Further evaluation with biopsy is recommended. Stereotactic biopsy should be attempted. If this is unsuccessful due to the posterior position of the calcifications, surgical consultation for needle localization and excisional biopsy may be necessary. BI-RADS Category 4: Suspicious. These findings have been discussed with the patient and the patient's physician, Dr. Buchanan was notified about these findings at 10:09 AM on 09/27/2018. "Our facility is accredited by the [employer] Mammography [employer]." Electronically signed by: Kylie Nuñez MD (09/27/2018 10:10 AM) [facility]
== END | disposition home or self-care (01) ==
LOC: KCIC MAMMO 11:00
PROVIDERS: ATTEND Family Medicine
DX: R92.1 Mammographic calcification found on diagnostic imaging of breast (principal)
CPT/HCPCS: 77065

== ENCOUNTER 2018-10-01 12:56 | Emergency (ER) | payer MEDICARE, BC ==
[~2018-10-01] VITALS: Ht 154.9 cm; Wt 101.6 kg
[~2018-10-01 12:56] MED LIST changes: -ACET-704 PO; -ALBU2.5V8 INH; -CALC600T4 PO; -DICL100G18 TP; -FURO20TA3 PO; -IPRA3AMP29 NEB; -LEXAPRO20 MG PO; -LORA10TA68 PO; -MAGN400C PO; -ONDA4TAB12 PO; -OXYC1TAB15 PO; -POTA20TA82 PO
[2018-10-01 13:40] LABS: BILIRUBIN,URINE NEGATIVE (NEG); CLARITY,URINE CLEAR; COLOR,URINE YELLOW; NITRITE,URINE NEGATIVE (NEG); PH,URINE 5.5; PROTEIN,URINE NEGATIVE (NEG-TRACE); UROBILINOGEN,URINE 0.2 mg/dL (0.2 mg/dL)
[2018-10-01 13:48] LABS: RBC,URINE 0 /HPF (0-2); WBC,URINE RARE /HPF (0-4)
[2018-10-01 13:49] LABS: BACTERIA,URINE MANY /HPF (0-FEW); SQUAMOUS EPITHELIAL CELL,UR MOD /LPF
[2018-10-01] MEDS ORDERED: FAMOTIDINE 20 MG/2 ML VIAL IVP ONE (14:15)
[2018-10-01] MEDS ORDERED: IV NORMAL SALINE 1000ML BAG 1,000 ML IV ONE (14:15)
[2018-10-01] MEDS ORDERED: ONDANSETRON PF 4 MG/2 ML VIAL. IV ONE (14:15)
[2018-10-01 14:20] LABS: BASO % 1 % (0-3); EOS % 1 % (0-3); HEMATOCRIT 39.2 % (36.0-47.0); HEMOGLOBIN 12.9 g/dL (12.0-15.5); LYMPH # 0.9 x10^3/uL (1.0-4.8); LYMPH % 18 % (24-48); MEAN CORPUSCULAR HEMOGLOBIN 27 pg (25-35); MEAN CORPUSCULAR HGB CONC 33 g/dL (31-37); MEAN CORPUSCULAR VOLUME 84 fL (79-100); MONO # 0.3 x10^3/uL (0.0-1.1); MONO % 5 % (0-9); NEUT % 75 % (31-73); PLATELET COUNT 318 x10^3/uL (140-400); RED CELL DISTRIBUTION WIDTH 15.2 % (11.5-14.5); WHITE BLOOD COUNT 5.3 x10^3/uL (4.0-11.0)
[2018-10-01 14:31] LABS: CALCIUM 9.9 mg/dL (8.5-10.1); GFR 54.8; POTASSIUM 4.9 mmol/L (3.5-5.1)
[2018-10-01 14:37] LABS: ALBUMIN 3.9 g/dL (3.4-5.0); ALBUMIN/GLOBULIN RATIO 1.1 (1.0-1.7); TOTAL BILIRUBIN 0.8 mg/dL (0.2-1.0); TOTAL PROTEIN 7.4 g/dL (6.4-8.2)
[2018-10-01] MEDS ORDERED: IOHEXOL 300 MG/ML 100ML VIAL. IV ONE (14:45)
[2018-10-01] MEDS ORDERED: CONTRAST GIVEN. MC PRN (14:45)
--- NOTE | 2018-10-01 15:22 | RAD ---
CT ABD PELV W/ IV CONTRST ONLY Indication: Right upper quadrant pain, epigastric pain, nausea vomiting and diarrhea. History of fundoplication. Exposure: One or more of the following individualized dose reduction techniques were utilized for this examination: 1. Automated exposure control 2. Adjustment of the mA and/or kV according to patient size 3. Use of iterative reconstruction technique. Technique: Intravenous contrast was given. No oral contrast per request. Comparison: None are available FINDINGS: Mild reticular markings in lung bases compatible with atelectasis and/or fibrosis. Several small hypodense lesions of the liver, largest is in the right lobe and measures 8 mm. These are too small to characterize but would commonly represent benign lesion such as cyst or hemangioma in the absence of other clinical history. Spleen not enlarged. Pancreas unremarkable. No evidence of adrenal mass. Kidneys demonstrate symmetric enhancement without focal mass or hydronephrosis. Gallbladder surgically absent. The aorta is nonaneurysmal. No significant lymph node enlargement. Postsurgical changes of a fundoplication are noted. Adjacent gastric wall thickening is likely due to nondistention. Mild distention of the distal esophagus. No significant small bowel distention. Colonic diverticulosis without evidence of acute colitis. The appendix is not visualized. No evidence of ascites. No evidence of pneumoperitoneum. No evidence of pelvic mass. Urinary bladder appears unremarkable. Postsurgical changes of the spine with fusion. No aggressive bone destruction is identified. Mild left convexity lumbar scoliosis. Degenerative changes at the hips. IMPRESSION: 1. Small subcentimeter liver lesions are too small to characterize but would commonly be benign, in the absence of clinical history such as primary tumor. 2. Changes at the gastroesophageal junction likely related to fundoplication surgery. 3. Colonic diverticulosis without evidence of acute colitis. Electronically signed by: Hong Villalobos MD (10/01/2018 3:19 PM) [id number]
--- NOTE | 2018-10-01 15:54 | PHYS DOC ---
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 She at least 5 episodes of diarrhea in the last 24 hours, she is unsure how many times she has vomited. Patient reports history of a previous fundopl ication and states that she vomits whenever anything stuck in her esophagus. She complains of epigastric and right upper quadrant abdominal pain, she currently rates the pain as 7 out of 10 and describes the pain as sharp and burning. ROS Patient denies any fever, cough, shortness of breath, back pain, dysuria, increased urinary frequency, or dizziness. She states that she has had no blood in her stools. She denies any chest pain or palpitations. All other ROS is neg unless otherwise noted in HPI. Review of Systems Review of Systems See Above Current Medications Current Medications Current Medications Medications (Trade) Dose Ordered Sig/Kristin Start Time Stop Time Status Last Admin Dose Admin Famotidine (Pepcid Vial) 20 mg 1X ONCE 10/01/18 14:15 10/01/18 14:16 DC 10/01/18 14:22 20 MG Info (CONTRAST GIVEN -- Rx MONITORING) 1 each PRN DAILY PRN 10/01/18 14:45 10/01/18 16:34 DC Iohexol (Omnipaque 300 Mg/ml) 75 ml 1X ONCE 10/01/18 14:45 10/01/18 14:46 DC 10/01/18 15:06 75 ML Ondansetron HCl (Zofran) 4 mg 1X ONCE 10/01/18 14:15 10/01/18 14:16 DC 10/01/18 14:20 4 MG Sodium Chloride 1,000 ml @ 1,000 mls/hr 1X ONCE 10/01/18 14:15 10/01/18 15:14 DC 10/01/18 14:18 1,000 MLS/HR Allergies Allergies Allergies Coded Allergies Type Severity Reaction Last Updated Verified bacitracin Allergy Intermediate rash 04/06/18 Yes neomycin Allergy Intermediate rash 04/06/18 Yes polymyxin B Allergy Intermediate rash 04/06/18 Yes sulfamethoxazole Allergy Intermediate Nausea and Vomiting 04/06/18 Yes latex Allergy Unknown MILD- GETS RASH 04/06/18 Yes adhesive Adverse Reaction Intermediate Rash-INCLUDING STERI STRIPS AND GLUE 04/06/18 Yes clavulanic acid Adverse Reaction Intermediate headache 04/06/18 Yes erythromycin base Adverse Reaction Intermediate vomiting 04/06/18 Yes morphine Adverse Reaction Intermediate vomiting 04/06/18 Yes nitrofurantoin Adverse Reaction Intermediate fatigue 04/06/18 Yes trimethoprim Adverse Reaction Intermediate Nausea and Vomiting 04/06/18 Yes amoxicillin Adverse Reaction Mild headache 04/06/18 Yes Physical Exam Physical Exam See Above Constitutional: Well developed, well nourished, no acute distress, non-toxic appearance. [] HENT: Normocephalic, atraumatic, bilateral external ears normal, oropharynx moist, no oral exudates, nose normal. [] Eyes: PERRLA, EOMI, conjunctiva normal, no discharge. [] Neck: Normal range of motion, no tenderness, supple, no stridor. [] Cardiovascular:Heart rate regular rhythm, no murmur [] Lungs & Thorax: Bilateral breath sounds clear to auscultation [] Abdomen: Bowel sounds normal, soft, no tenderness, no masses, no pulsatile mas ses. [] Skin: Warm, dry, no erythema, no rash. [] Back: No tenderness, no CVA tenderness. [] Extremities: No tenderness, no cyanosis, no clubbing, ROM intact, no edema. [] Neurologic: Alert and oriented X 3, normal motor function, normal sensory function, no focal deficits noted. [] Psychologic: Affect normal, judgement normal, mood normal. [] Current Patient Data Vital Signs Vital Signs Date Time Temp Pulse Resp B/P (MAP) Pulse Ox O2 Delivery O2 Flow Rate FiO2 10/01/18 16:30 71 16 143/73 (96) 96 Room Air 10/01/18 13:17 98.0 98.0 Lab Values Laboratory Tests Test 10/01/18 13:23 10/01/18 14:14 Urine Collection Type Unknown Urine Color Yellow Urine Clarity Clear Urine pH 5.5 Urine Specific [place] 1.010 Urine Protein Negative mg/dL (NEG-TRACE) Urine Glucose (UA) Negative mg/dL (NEG) Urine Ketones (Stick) Negative mg/dL (NEG) Urine Blood Negative (NEG) Urine Nitrite Negative (NEG) Urine Bilirubin Negative (NEG) Urine Urobilinogen Dipstick 0.2 mg/dL (0.2 mg/dL) Urine Leukocyte Esterase Negative (NEG) Urine RBC 0 /HPF (0-2) Urine WBC Rare /HPF (0-4) Urine Squamous Epithelial Cells Mod /LPF Urine Bacteria Many /HPF (0-FEW) Urine Mucus Mod /LPF White Blood Count 5.3 x10^3/uL (4.0-11.0) Red Blood Count 4.70 x10^6/uL (3.50-5.40) Hemoglobin 12.9 g/dL (12.0-15.5) Hematocrit 39.2 % (36.0-47.0) Mean Corpuscular Volume 84 fL (79-100) Mean Corpuscular Hemoglobin 27 pg (25-35) Mean Corpuscular Hemoglobin Concent 33 g/dL (31-37) Red Cell Distribution Width 15.2 % (11.5-14.5) H Platelet Count 318 x10^3/uL (140-400) Neutrophils (%) (Auto) 75 % (31-73) H Lymphocytes (%) (Auto) 18 % (24-48) L Monocytes (%) (Auto) 5 % (0-9) Eosinophils (%) (Auto) 1 % (0-3) Basophils (%) (Auto) 1 % (0-3) Neutrophils # (Auto) 4.0 x10^3/uL (1.8-7.7) Lymphocytes # (Auto) 0.9 x10^3/uL (1.0-4.8) L Monocytes # (Auto) 0.3 x10^3/uL (0.0-1.1) Eosinophils # (Auto) 0.0 x10^3/uL (0.0-0.7) Basophils # (Auto) 0.0 x10^3/uL (0.0-0.2) Sodium Level 143 mmol/L (136-145) Potassium Level 4.9 mmol/L (3.5-5.1) Chloride Level 104 mmol/L (98-107) Carbon Dioxide Level 28 mmol/L (21-32) Anion Gap 11 (6-14) Blood Urea Nitrogen 15 mg/dL (7-20) Creatinine 1.0 mg/dL (0.6-1.0) Estimated GFR (Cockcroft-Gault) 54.8 BUN/Creatinine Ratio 15 (6-20) Glucose Level 96 mg/dL (70-99) Calcium Level 9.9 mg/dL (8.5-10.1) Magnesium Level 2.0 mg/dL (1.8-2.4) Total Bilirubin 0.8 mg/dL (0.2-1.0) Aspartate Amino Transferase (AST) 22 U/L (15-37) Alanine Aminotransferase (ALT) 23 U/L (14-59) Alkaline Phosphatase 105 U/L (46-116) Total Protein 7.4 g/dL (6.4-8.2) Albumin 3.9 g/dL (3.4-5.0) Albumin/Globulin Ratio 1.1 (1.0-1.7) Lipase 135 U/L (73-393) Laboratory Tests 10/01/18 14:14 Laboratory Tests 10/01/18 14:14 EKG EKG [] Radiology/Procedures Radiology/Procedures PROCEDURE: CT ABD PELV W/ IV CONTRST ONLY CT ABD PELV W/ IV CONTRST ONLY Indication: Right upper quadrant pain, epigastric pain, nausea vomiting and diarrhea. History of fundoplication. Exposure: One or more of the following individualized dose reduction techniques were utilized for this examination: 1. Automated exposure control 2. Adjustment of the mA and/or kV according to patient size 3. Use of iterative reconstruction technique. Technique: Intravenous contrast was given. No oral contrast per request. Comparison: None are available FINDINGS: Mild reticular markings in lung bases compatible with atelectasis and/or fibrosis. Several small hypodense lesions of the liver, largest is in the right lobe and measures 8 mm. These are too small to characterize but would commonly represent benign lesion such as cyst or hemangioma in the absence of other clinical history. Spleen not enlarged. Pancreas unremarkable. No evidence of adrenal mass. Kidneys demonstrate symmetric enhancement without focal mass or hydronephrosis. Gallbladder surgically absent. The aorta is nonaneurysmal. No significant lymph node enlargement. Postsurgical changes of a fundoplication are noted. Adjacent gastric wall thickening is likely due to nondistention. Mild distention of the distal esophagus. No significant small bowel distention. Colonic diverticulosis without evidence of acute colitis. The appendix is not visualized. No evidence of ascites. No evidence of pneumoperitoneum. No evidence of pelvic mass. Urinary bladder appears unremarkable. Postsurgical changes of the spine with fusion. No aggressive bone destruction is identified. Mild left convexity lumbar scoliosis. Degenerative changes at the hips. IMPRESSION: 1. Small subcentimeter liver lesions are too small to characterize but would commonly be benign, in the absence of clinical history such as primary tumor. 2. Changes at the gastroesophageal junction likely related to fundoplication surgery. 3. Colonic diverticulosis without evidence of acute colitis. [] Course & Med Decision Making Course & Med Decision Making Pertinent Labs and Imaging studies reviewed. (See chart for details) dx: abdominal pain, nausea, vomiting, diarrhea CBC unremarkable, CMP unremarkable, UA unremarkable. CT negative for acute findings, pt aware of lesions in liver, recommend PCP follows up on liver lesions Prescription written for zofran. Clear liquid diet then advance as tolerated. Advised pt to not take immodium for diarrhea. Follow up with PCP later this week, return to the ER if sx worsen. Patient verbalized an understanding of home care, medications, follow-up, and return to ED instructions and was in agreement with the plan of care. [] Dragon Disclaimer Dragon Disclaimer This electronic medical record was generated, in whole or in part, using a voice recognition dictation system. Departure Departure Impression: Primary Impression: Nausea & vomiting Additional Impression: Abdominal pain, vomiting, and diarrhea Disposition: 01 HOME, SELF-CARE Condition: STABLE Referrals: DALJIT POON MD (PCP) Patient Instructions: Diarrhea, [id number], Diet for Diarrhea, Adult, Nausea and Vomiting, [id number] Additional Instructions: Fill prescription and use as directed. Increase clear fluids. Follow the diet instructions provided. Follow-up with your primary care doctor in 1-2 days, return to the ER if symptoms worsen. Scripts Ondansetron (ONDANSETRON ODT) 4 Mg Tab.rapdis 1 TAB PO PRN Q6-8HRS PRN for NAUSEA/VOMITING for 4 Days, #16 TAB 0 Refills Prov: IFEANYI VASQUEZ RN TELEMETRY 10/01/18 Problem Qualifiers Primary Impression: Nausea & vomiting Vomiting type: unspecified Vomiting Intractability: non-intractable Qualified Codes: R11.2 - Nausea with vomiting, unspecified IFEANYI VASQUEZ RN TELEMETRY Oct 01, 2018 15:54
[2018-10-01] MEDS ORDERED: ONDA4TAB12 PO (16:22)
[2018-10-01 16:30] VITALS: BP 143/73
== END 2018-10-01 16:30 | disposition home or self-care (01) ==
LOC: ER 12:56
DX: R11.2 Nausea with vomiting, unspecified (principal); R19.7 Diarrhea, unspecified; R10.13 Epigastric pain; K57.30 Diverticulosis of large intestine without perforation or abscess without bleeding; K21.9 Gastro-esophageal reflux disease without esophagitis; K58.9 Irritable bowel syndrome, unspecified; E78.00 Pure hypercholesterolemia, unspecified; J45.909 Unspecified asthma, uncomplicated; Z90.89 Acquired absence of other organs; Z90.49 Acquired absence of other specified parts of digestive tract; Z90.710 Acquired absence of both cervix and uterus; Z88.1 Allergy status to other antibiotic agents; Z88.2 Allergy status to sulfonamides; Z91.040 Latex allergy status; Z88.5 Allergy status to narcotic agent; Z88.8 Allergy status to other drugs, medicaments and biological substances
CPT/HCPCS: 36415; 74177; 80053; 81001; 83690; 83735; 85025; 87086; 96361; 96374; 96375; 99285; J2405; J3490; J7030; Q9967

== ENCOUNTER → 2018-10-15 | Outpatient (CLI) | payer MEDICARE, BC ==
[2018-10-01 16:30] VITALS: BP 143/73
[~2018-10-15] MED LIST changes: +ACET-704 PO; +ALBU2.5V8 INH; +CALC600T4 PO; +DICL100G18 TP; +FURO20TA3 PO; +IPRA3AMP29 NEB; +LEXAPRO20 MG PO; +LORA10TA68 PO; +MAGN400C PO; +ONDA4TAB12 PO; +OXYC1TAB15 PO; +POTA20TA82 PO; +WARF3TAB50 PO
[2018-10-15 09:04] LABS: PROTHROMBIN TIME PATIENT 12.1 SEC (11.7-14.0)
== END | disposition home or self-care (01) ==
LOC: SURGPAT 13:26
PROVIDERS: ATTEND Orthopaedic Surgery
DX: Z01.818 Encounter for other preprocedural examination (principal); M16.12 Unilateral primary osteoarthritis, left hip; Z88.5 Allergy status to narcotic agent; Z88.8 Allergy status to other drugs, medicaments and biological substances
CPT/HCPCS: 36415; 82306; 85610; 85651; 85730; 87641

== ENCOUNTER → 2018-10-22 | Outpatient (CLI) | payer MEDICARE, BC ==
[2018-10-01 16:30] VITALS: BP 143/73
--- NOTE | 2018-10-23 11:54 | RAD ---
Examination: STEREOTACTIC BREAST BIOPSY RT, DIGITAL DIAGNOSTIC RT Comparison/Correlation: Screening mammographic exam 09/17/2018, right unilateral diagnostic mammographic images 09/27/2018 Clinical History: Suspicious microcalcifications right breast. Procedure: Relative benefits, risks and alternatives to the procedure were discussed and written informed consent was obtained. Microcalcifications were localized by stereotactic technique mediolateral projection. With 1% lidocaine local anesthesia, sterile technique and mammogram stereotactic guidance, percutaneous biopsy was performed with a 9 gauge needle and vacuum assistance. Multiple samples were obtained and sent to Pathology. The procedure was well tolerated. A marker was placed at the end of procedure. Specimen Radiograph: A radiograph was obtained of the tissue specimen. Multiple microcalcifications are seen in the specimen. The specimen was inked and sent to Pathology. CC and ML views were obtained to confirm clip placement. The patient was sent home in good condition with postprocedure written and verbal instructions. Impression: Target microcalcifications are in the specimen. Pathology is pending.
--- NOTE | 2018-10-24 09:07 | PATHOLOGY ---
[facility] Accession Number: [id number] . 01 Material submitted: . breast - RIGHT BREAST CALCIFICATIONS. Modifiers: right . 01 Clinical history: . Right breast calcifications . 02 Diagnosis: Breast tissue, right breast stereotactic biopsies: - Segments of fatty breast tissue showing focal stromal calcifications. (JPM:brooke; 10/23/2018) QMS/10/24/2018 . 02 Comment: Sections of the right breast stereotactic biopsy reveal segments of fibrofatty breast tissue which are predominantly fatty. There are focal small and coarse stromal calcifications. There is no evidence of malignancy. I am uncertain as to whether or not the findings are manufacturers service representative of the lesion present mammographically. Please correlate with radiologic studies. (JPM:brooke; 10/23/2018) . 02 Electronically signed: . Omi Bai MD, Pathologist NPI- [id number] . 01 Gross description: . The specimen is received in formalin, labeled "Bernie Ureña, is right breast calcifications", is a peach cassette consisting of multiple fibrofatty fragments measuring 3.0 x 2.4 x 0.7 cm in aggregate. The specimen is entirely submitted in A1-A3. Specimen excised at: 0925 on 10/22/18, placed in formalin at: 0930 on 10/22/18, formalin exposure: Approximately 14 hours and 10 minutes. ([facility]; 10/22/2018) SHS/SHS . 02 Pathologist provided ICD-10: R92.0 . 02 CPT . 939394 Specimen Comment: A courtesy copy of this report has been sent to Specimen Comment: [phone], . Specimen Comment: Report sent to / DR POON Performed at: 01 [facility] [address], [place], [place] [id number] MD Gavino Neely MD Phone: [phone] Performed at: 02 [facility] [address], [place] [id number] MD Omi Bai MD Phone: [phone]
== END | disposition home or self-care (01) ==
LOC: MAMMO 07:37
PROVIDERS: ATTEND Surgery
DX: N63.10 Unspecified lump in the right breast, unspecified quadrant (principal); R92.0 Mammographic microcalcification found on diagnostic imaging of breast
CPT/HCPCS: 19081; 77022; 77065; 88305; C1713; 19085

== ENCOUNTER 2018-10-30 06:09 | Inpatient (IN) | payer MEDICARE, BC ==
[2018-10-30] VITALS (8 sets, daily range): BP systolic 94–147; BP diastolic 56–76
[~2018-10-30] VITALS: Ht 154.9 cm; Wt 96.6 kg
[~2018-10-30 06:09] MED LIST changes: +CELECOXIB 100 MG CAPSULE. PO PRN; +HYDROcodone/APAP 7.5/325MG 1 TAB TABLET PO PRN; +KETOROLAC 30MG VIAL 30 MG, ROPIVacaine 0.5% PF 60 ML, EPINEPHrine 0.5 MG in IV NORMAL S... INT ART ONE; -WARF3TAB50 PO
[2018-10-30] MEDS ORDERED: fentaNYL PF VIAL 100 MCG/2 ML VIAL IV PRN ×3 (07:00→08:15)
[2018-10-30] MEDS ORDERED: LIDOCAINE 1% PF 2 ML VIAL. ID PRN (07:00)
[2018-10-30] MEDS ORDERED: IV RINGERS,LACTATED 1000ML 1,000 ML IV SCH (07:00)
[2018-10-30] MEDS ORDERED: PROCHLORPERAZINE 10 MG/2 ML VIAL. IV PRN (07:00)
[2018-10-30 07:04] LABS: PROTHROMBIN TIME PATIENT 12.6 SEC (11.7-14.0)
[2018-10-30] MEDS ORDERED: MIDAZOLAM HCL/PF 2 MG/2 ML VIAL. ONE (07:25)
[2018-10-30] MEDS ORDERED: fentaNYL PF VIAL 250 MCG/5 ML VIAL ONE (07:26)
[2018-10-30] MEDS ORDERED: ROCURONIUM 50 MG/5 ML VIAL. ONE (07:26)
[2018-10-30] MEDS ORDERED: MELOXICAM 7.5 MG TABLET PO ONE (07:30)
[2018-10-30] MEDS ORDERED: PROPOFOL 100 ML IV ONE (07:31)
[2018-10-30] MEDS ORDERED: oxyCODONE IR 5 MG TABLET PO PRN (08:15)
[2018-10-30] MEDS ORDERED: IV DEXTROSE 5% 250 ML BAG. IV PRN (08:15)
[2018-10-30] MEDS ORDERED: 0.9 % SODIUM CHLORIDE 10 ML DISP.SYRIN. IV PRN (08:15)
[2018-10-30] MEDS ORDERED: HYDROmorphone 2 MG/ML VIAL IVP PRN (08:15)
[2018-10-30] MEDS ORDERED: diphenhydrAMINE 50 MG/ML VIAL IV PRN (08:15)
[2018-10-30] MEDS ORDERED: ZOLPIDEM 5 MG TABLET. PO PRN (08:15)
[2018-10-30] MEDS ORDERED: CALCIUM CARBONATE 500 MG TAB.CHEW PO PRN (08:15)
[2018-10-30] MEDS ORDERED: DEXTROSE 50% 25 GM / 50ML DISP.SYRIN. IV PRN (08:15)
[2018-10-30] MEDS ORDERED: PROCHLORPERAZINE 5 MG TABLET. PO PRN (08:15)
--- NOTE | 2018-10-30 08:23 | HP ---
ADMIT DATE: 10/30/2018 PREOPERATIVE HISTORY AND PHYSICAL CHIEF COMPLAINT: Left hip pain. HISTORY OF PRESENT ILLNESS: The patient has had ongoing left hip pain, but severely worse for the past several months, worsening after a fall where she got her feet tangled up and it is hard to stand for any length of time. She has groin pain and has been taking oxycodone for sleep. PAST MEDICAL HISTORY: Significant for malignant hyperthermia, a recent breast biopsy that was negative. She also has some hemorrhoids and some vision problems, glaucoma, and spinal stenosis. PAST SURGICAL HISTORY: Previous back surgery with fusion, right knee replacement by Dr. Olguin, right great toe implant, surgery on both feet, appendectomy, hysterectomy, and carpal tunnel surgeries in the past as well. FAMILY HISTORY: Arthritis in her mom, lung cancer in her father, colon cancer in her maternal grandfather, and several other family members are healthy. SOCIAL HISTORY: Denies smoking, alcohol, or drug use. Does take care of her dogs. MEDICATIONS: List is reviewed. ALLERGIES: INCLUDE AUGMENTIN, ERYTHROMYCIN, MORPHINE, MACROBID, BACTRIM, AND HISTORY OF MALIGNANT HYPERTHERMIA WITH ANESTHESIA. PHYSICAL EXAMINATION: VITAL SIGNS: Per her admission sheet. HEENT: Atraumatic and normocephalic. HEART: Regular rate and rhythm. LUNGS: Clear to auscultation bilaterally. ABDOMEN: Benign and obese. EXTREMITIES: Examination of the left hip reveals pain at her already decreased range of motion extremes. She is mildly tender over the trochanteric bursa on the left compared to the right. Negative straight leg raise signs bilaterally. Normal examination of the contralateral right hip. Well-healed incision from previous knee arthroplasty and foot surgeries. Otherwise, stable bilateral knees and ankles. IMAGING: X-rays show significant narrowing with degenerative changes in the left hip. MRI confirms the degenerative changes present. IMPRESSION: Osteoarthritis, left hip. TREATMENT PLAN: We had previously discussed in detail additional nonoperative measures of support and activity modification, which she has exhausted. She is not performing her desired activities of daily living and having severe nighttime pain to the point where her kids had to move in with her to help her. She wishes to become more active and independent. We went through the possibility of total hip arthroplasty, risks, benefits, postoperative course including the obvious anesthesia risks with her condition, possibility of infection, nerve or blood vessel damage, leg length inequality, instability, continued pain, weakness, among others, premature wear or loosening. All her questions were answered. She wishes to proceed with surgical evaluation and treatment, which will occur today with [facility] admission to follow. REGINA BARBA MD DR: JUAREZ/benitez JOB#: [id number] / [id number]
[2018-10-30] MEDS ORDERED: PROPOFOL 20 ML IV ONE (08:36)
[2018-10-30] MEDS ORDERED: PROPOFOL 50 ML IV ONE (08:36)
[2018-10-30] MEDS ORDERED: DEXAMETHASONE SOD PHOS 4 MG/ML VIAL ONE (08:36)
[2018-10-30] MEDS ORDERED: LIDOCAINE 2% PF 5 ML VIAL. ONE (08:36)
[2018-10-30] MEDS ORDERED: GLYCOPYRROLATE 1 MG/5 ML VIAL. ONE (09:38)
[2018-10-30] MEDS ORDERED: NEOSTIGMINE METHYLSULFATE 5 MG/5 ML SYRINGE. ONE (09:38)
[2018-10-30] MEDS ORDERED: fentaNYL PF VIAL 100 MCG/2 ML VIAL ONE (10:28)
--- NOTE | 2018-10-30 10:44 | PDOC4 ---
Operative Note Operative Note Date of surgery: 10/30/2018 Preoperative diagnosis: Degenerative joint disease left hip Postoperative diagnosis: Same Operative procedure: Left total hip arthroplasty Surgeon: Stephie Assist: Lam Burris NP Anesthesia: Gen. Estimated blood loss: 800 mL Complications: None Specimens: Femoral head to pathology Operative indications: Please see my detailed preoperative history and physical and previous clinic notes for detailed operative indications note that she had had long-standing and then acute on chronic left hip pain unresponsive to nonoperative management we had reviewed risks benefits postoperative course including possibility of infection instability leg length inequality nerve or blood vessel damage continued pain premature wear or loosening medical or other anesthetic complications among others all her questions were answered she wishes to proceed with surgical evaluation and treatment. Operative text: Patient was identified procedure verified patient placed in the supine position on the operating table. After adequate amounts of general anesthesia were administered patient was placed in the decubitus position left side up with Stulberg hip positioners in the left hip was prepped and draped in standard sterile fashion. After timeout was performed patient procedure identified and verified a curvilinear incision was made over the left greater trochanter with a posterior approach to the hip dissection carried out down to the iliotibial band and gluteal fascia which were split in line with their fibers Charnley retractor was placed external rotators were divided from their insertion and hip capsule was split in a T fashion.. The hip was then dislocated femoral neck cut was made with the cutting guide and the acetabulum exposed contents of the fovea and any residual labrum were excised reaming carried out to a size 51 with a 52 cluster hole [employer] coated acetabular component was impacted and fixated with 2 screws with excellent fixation in proper version. A size 36 standard liner was impacted the proximal femur reamed and broached with a size 12 standard implant trial that showed leg length and offset temple excellent stability to about 50� internal rotation at 90� hip flexio n and full extension noted. Calcar was reamed trial components were removed and a size 12 standard offset stem was impacted and a +0 trial carried out again with equivalent stability temple of leg length and a cobalt-chromium size 36+0 implant was impacted to engage the femoral neck taper and reduced thorough irrigation carried out normal saline solution Hemovac drain and pain catheter were placed hip capsule was repaired with #5 Ethibond suture and transosseous repair of the external rotators with #5 Ethibond Ethibond was used to close the fascia after the pain catheter mixture with morphine left out was injected throughout the joint capsule and surrounding areas fascia closure was reinforced with #1 PDS suture subcutaneous closure with buried Vicryl suture subcuticular 30 strata fix Monocryl was used and a inga drain was placed patient was returned recovery room in stable condition having tolerated procedure well. Lam Burris nurse practitioner was present for the procedure and assisted in the prepping draping retraction and skin closure REGINA BARBA MD Oct 30, 2018 10:44
[2018-10-30] MEDS: ONDANSETRON ODT 4 MG TAB.RAPDIS. PO SCH ×2 (12:00→17:01)
--- NOTE | 2018-10-30 12:10 | RAD ---
EXAM: AP pelvis, crosstable lateral view left hip DATE: 10/30/2018 8:01 AM INDICATION: Postoperative changes, left hip arthroplasty COMPARISON: 08/14/2018 FINDINGS/ IMPRESSION: 1. Changes of left total hip arthroplasty are now seen, in good alignment without definite hardware complication or fracture. 2. Expected postoperative soft tissue changes including drain are seen. 3. Lower lumbar spine fusion hardware is partially profiled. Electronically signed by: Tj Stark MD (10/30/2018 12:07 PM) [id number]
--- NOTE | 2018-10-30 13:24 | NUR ---
received from recovery. she is rating her pain 4-5 and family request pain medication. she has good sensation motion and pulses bilateral lower extremities. denies nausea at this time. she is sleepy but arouses easily. dressing to left hip is clean dry and intact. Isabela, Hemovac and IAC are in intact.
[2018-10-30] MEDS: ONDANSETRON PF 4 MG/2 ML VIAL. IV SCH ×2 (13:43→18:00)
[2018-10-30] MEDS: IV NORMAL SALINE 1000ML BAG 1,000 ML IV SCH (13:44)
[2018-10-30] MEDS ORDERED: WARFARIN 7.5 MG TABLET. PO ONE (16:00)
[2018-10-30] MEDS: FERROUS SULFATE 325 MG TABLET. PO SCH (17:01)
[2018-10-30] MEDS ORDERED: oxyCODONE/APAP 5/325 1 TAB TABLET PO PRN (17:45)
[2018-10-30] MEDS ORDERED: DICLOFENAC SODIUM 1% TOPICAL GEL 100GM TUBE. TP PRN (17:45)
[2018-10-30] MEDS: LATANOPROST 0.005% OPHTH SOLUTION 2.5ML BOTTLE. OU SCH ×2 (17:45→20:51)
[2018-10-30] MEDS ORDERED: ALBUTEROL SULFATE 2.5 MG/3 ML NEBU. INH PRN (17:45)
[2018-10-30] MEDS ORDERED: CYCLOBENZAPRINE 10 MG TABLET. PO PRN (18:15)
[2018-10-30] MEDS: KETOROLAC 30MG VIAL 30 MG, BUPIVACAINE MPF 0.25% 20 ML, EPINEPHrine 0.5 MG in TOTAL VOL... INT ART SCH (18:17)
[2018-10-30] MEDS: IPRATRPIUM/ALBUTEROL 0.5/2.5MG 3 ML NEBU. NEB SCH (19:32)
[2018-10-30] MEDS: GABAPENTIN 300 MG CAPSULE. PO SCH (20:54)
[2018-10-30] MEDS ORDERED: PRAMIPEXOLE 0.25 MG TABLET. PO SCH (21:00)
[2018-10-31] MEDS: KETOROLAC 30MG VIAL 30 MG, BUPIVACAINE MPF 0.25% 20 ML, EPINEPHrine 0.5 MG in TOTAL VOL... INT ART SCH ×2 (05:48→06:00)
[2018-10-31] MEDS: ONDANSETRON ODT 4 MG TAB.RAPDIS. PO SCH ×2 (05:49)
[2018-10-31] MEDS: ONDANSETRON PF 4 MG/2 ML VIAL. IV SCH ×2 (05:49)
[2018-10-31] MEDS ORDERED: MAGNESIUM HYDROXIDE 2,400 MG/30 ML ORAL.SUSP. PO PRN (06:00)
[2018-10-31] MEDS ORDERED: GABAPENTIN 100 MG CAPSULE. PO SCH (06:00)
[2018-10-31] MEDS: traMADol 50 MG TABLET PO SCH ×4 (06:16→23:25)
[2018-10-31] MEDS: CALCIUM CARB/VIT D3 500/200 TABLET. PO SCH (06:16)
[2018-10-31] MEDS: PANTOPRAZOLE 40 MG TABLET.DR. PO SCH (06:17)
[2018-10-31] MEDS: IPRATRPIUM/ALBUTEROL 0.5/2.5MG 3 ML NEBU. NEB SCH ×4 (07:01→20:20)
[2018-10-31 07:18] VITALS: BP 142/66
--- NOTE | 2018-10-31 07:54 | PDOC ---
ORTHO PROGRESS NOTES Subjective Patient sitting up at bedside eating breakfast with no complaint of pain. Post-op Day: 1 Procedure Left Total Hip Arthroplasty Vitals Vital Signs Date Time Temp Pulse Resp B/P (MAP) Pulse Ox O2 Delivery O2 Flow Rate FiO2 10/31/18 07:20 20 10/31/18 07:18 98.5 75 142/66 (91) 92 Room Air 98.5 10/30/18 14:45 3.0 Labs Laboratory Tests Test 10/30/18 06:35 Prothrombin Time 12.6 SEC (11.7-14.0) Prothromb Time International Ratio 1.0 (0.8-1.1) Activated Partial Thromboplast Time 26 SEC (24-38) Notes Awake and alert Assessment and Plan POD #1 S/P Left total Hip Arthroplasty motor and sensory intact distally calf soft and non tender dressing dry and intact PT today CELI WORKMAN APRN Oct 31, 2018 07:54
[2018-10-31] MEDS: IV NORMAL SALINE 1000ML BAG 1,000 ML IV SCH (08:01)
[2018-10-31] MEDS: GABAPENTIN 300 MG CAPSULE. PO SCH ×3 (09:00→20:34)
--- NOTE | 2018-10-31 09:00 | NUR ---
0900 dose gabapentin not given. Duplicate order and a dose given earlier this morning.
[2018-10-31] MEDS: MAGNESIUM OXIDE 400 MG TABLET PO SCH (09:08)
[2018-10-31] MEDS: CITALOPRAM 20 MG TABLET. PO SCH (09:08)
[2018-10-31] MEDS: MULTIVITAMIN with MINERAL TABLET. PO SCH (09:09)
[2018-10-31] MEDS: ASPIRIN ENTERIC COATED 81 MG TABLET.DR. PO SCH (09:09)
[2018-10-31] MEDS: SENNOSIDES/DOCUSATE 8.6/50MG TABLET. PO SCH (09:09)
[2018-10-31] MEDS: FERROUS SULFATE 325 MG TABLET. PO SCH ×2 (09:09→16:56)
[2018-10-31] MEDS: POTASSIUM CHLORIDE 20 MEQ TABLET.ER. PO SCH (09:10)
[2018-10-31] MEDS: FUROSEMIDE 20 MG TABLET PO SCH (09:12)
[2018-10-31 10:03] LABS: HEMATOCRIT 28.7 % (36.0-47.0); HEMOGLOBIN 9.4 g/dL (12.0-15.5)
[2018-10-31 10:22] LABS: PROTHROMBIN TIME PATIENT 14.7 SEC (11.7-14.0)
--- NOTE | 2018-10-31 11:21 | NUR ---
Pharmacy Warfarin Dosing Note S:Pharmacy consulted to assist with anticoagulation therapy started 10/30/18 with target INR: 1.6 - 2.5 O:SAMANTHA FOUNTAIN is a 68 year old F with [facility]: Last INR: 1.2 Last HGB: 9.4 Last HCT: 28.7 Last PLT: Last dose of 7.5 mg given on 10/30/18 at 1701 Previous Regimen: Vitamin K given: N Drug Interaction Changes: Ongoing Drug Interactions: A:INR of 1.2 is below desired range. Target range for this patient is: 1.6 - 2.5. P: Warfarin dose: 5 mg Today at 1600. Bridge Therapy: None Next INR due tomorrow. Pharmacy anticoagulation service will continue to follow. Neto Mabry [facility], 10/31/18 1122
[2018-10-31] MEDS ORDERED: ONDANSETRON ODT 4 MG TAB.RAPDIS. PO PRN (12:00)
[2018-10-31] MEDS ORDERED: ONDANSETRON PF 4 MG/2 ML VIAL. IV PRN (12:00)
[2018-10-31] MEDS: ACETAMINOPHEN 500 MG TABLET PO SCH ×2 (15:13→20:33)
[2018-10-31] MEDS ORDERED: BISACODYL 10 MG SUPP.RECT. PR PRN (16:00)
[2018-10-31] MEDS ORDERED: WARFARIN 5 MG TABLET. PO ONE (16:00)
[2018-10-31] MEDS ORDERED: PRAMIPEXOLE 0.25 MG TABLET. PO SCH (17:00)
[2018-10-31 18:50] VITALS: BP 120/96
[2018-10-31] MEDS: PRAMIPEXOLE 0.25 MG TABLET. PO SCH (20:33)
[2018-10-31] MEDS: LATANOPROST 0.005% OPHTH SOLUTION 2.5ML BOTTLE. OU SCH (20:34)
[2018-10-31 23:00] VITALS: BP 115/65
[2018-11-01] MEDS: ACETAMINOPHEN 500 MG TABLET PO SCH ×4 (03:29→20:49)
[2018-11-01 06:15] VITALS: BP 110/62
[2018-11-01] MEDS: traMADol 50 MG TABLET PO SCH ×3 (06:21→17:44)
[2018-11-01] MEDS: CALCIUM CARB/VIT D3 500/200 TABLET. PO SCH ×2 (07:19→08:20)
[2018-11-01] MEDS: PANTOPRAZOLE 40 MG TABLET.DR. PO SCH (07:19)
[2018-11-01] MEDS: IPRATRPIUM/ALBUTEROL 0.5/2.5MG 3 ML NEBU. NEB SCH ×4 (07:26→19:49)
[2018-11-01] MEDS: IV NORMAL SALINE 1000ML BAG 1,000 ML IV SCH (08:01)
[2018-11-01] MEDS: ASPIRIN ENTERIC COATED 81 MG TABLET.DR. PO SCH (08:19)
[2018-11-01] MEDS: MAGNESIUM OXIDE 400 MG TABLET PO SCH (08:19)
[2018-11-01] MEDS: MULTIVITAMIN with MINERAL TABLET. PO SCH (08:19)
[2018-11-01] MEDS: SENNOSIDES/DOCUSATE 8.6/50MG TABLET. PO SCH (08:20)
[2018-11-01] MEDS: GABAPENTIN 300 MG CAPSULE. PO SCH ×3 (08:20→20:46)
[2018-11-01] MEDS: POTASSIUM CHLORIDE 20 MEQ TABLET.ER. PO SCH (08:20)
[2018-11-01] MEDS: FERROUS SULFATE 325 MG TABLET. PO SCH ×2 (08:20→16:52)
[2018-11-01] MEDS: CITALOPRAM 20 MG TABLET. PO SCH (08:21)
[2018-11-01] MEDS: FUROSEMIDE 20 MG TABLET PO SCH (08:21)
[2018-11-01] MEDS: PRAMIPEXOLE 0.25 MG TABLET. PO SCH ×2 (08:27→20:49)
[2018-11-01 09:59] LABS: HEMATOCRIT 27.8 % (36.0-47.0); HEMOGLOBIN 9.1 g/dL (12.0-15.5)
--- NOTE | 2018-11-01 15:16 | NUR ---
Pharmacy Warfarin Dosing Note S:Pharmacy consulted to assist with anticoagulation therapy started 10/30/18 with target INR: 1.6 - 2.5 O:MIRIAMSAMANTHA SU is a 68 year old F with [facility]: Last INR: 1.6 Last HGB: 9.1 Last HCT: 27.8 Last PLT: Last dose of 5 mg given on 10/31/18 at 1657 Vitamin K given: N A:INR of 1.6 is within desired range. Target range for this patient is: 1.6 - 2.5 P: Warfarin dose: 3 mg Today at 1600 Bridge Therapy: None Next INR due tomorrow Pharmacy anticoagulation service will continue to follow. Charu King [facility], 11/01/18 [id number]
[2018-11-01] MEDS ORDERED: WARFARIN 3 MG TABLET. PO ONE (16:00)
--- NOTE | 2018-11-01 18:06 | PATHOLOGY ---
[facility] Accession Number: [id number] . 01 Material submitted: . hip - LEFT HIP BONE AND TISSUE. Modifiers: left . 01 Clinical history: . DJD . 02 Diagnosis: Femoral head and focal attached synovial tissue, left total hip arthroplasty: - Degenerative arthritis. LBQ/11/01/2018 . 02 Comment: There is no evidence of malignancy. (JPM/db; 11/01/2018) . 02 Electronically signed: . Omi Bai MD, Pathologist NPI- [id number] . 01 Gross description: . Received in formalin labeled "Nancy Ureña, left hip bone and tissue," is a femoral head measuring 4.7 x 4.7 x 4.2 cm in greatest dimensions. The articular surface is smooth to granular and pale perez to dark brown in appearance, displaying no gross evidence of eburnation. Serial sectioning reveals pale yellow-perez to partially hemorrhagic cut surfaces, with multiple foci of softened, hemorrhagic bone noted underlying the articular cartilage near the head/neck junction. Piece Presser sections are submitted in cassette A1, following decalcification. (DAC; 10/31/2018) XDC/XDC . 02 Pathologist provided ICD-10: M16.12 . 02 CPT . 217460, [id number] Specimen Comment: A courtesy copy of this report has been sent to Specimen Comment: [phone], . Specimen Comment: Report sent to / DR POON Performed at: [address], [place], [place] [id number] MD Gavino Neely MD Phone: [phone] Performed at: 02 [facility] [address] [place], [place] [id number] MD Omi Bai MD Phone: [phone]
[2018-11-01 18:18] VITALS: BP 109/58
[2018-11-01] MEDS: LATANOPROST 0.005% OPHTH SOLUTION 2.5ML BOTTLE. OU SCH (20:45)
[2018-11-02] MEDS: ACETAMINOPHEN 500 MG TABLET PO SCH ×3 (03:00→15:05)
[2018-11-02] MEDS: traMADol 50 MG TABLET PO SCH ×3 (06:00→12:12)
[2018-11-02 06:30] VITALS: BP 132/79
[2018-11-02] MEDS: PANTOPRAZOLE 40 MG TABLET.DR. PO SCH (07:21)
[2018-11-02] MEDS: IPRATRPIUM/ALBUTEROL 0.5/2.5MG 3 ML NEBU. NEB SCH ×2 (08:00→13:07)
[2018-11-02] MEDS: IV NORMAL SALINE 1000ML BAG 1,000 ML IV SCH (08:01)
--- NOTE | 2018-11-02 08:03 | NUR ---
Tramadol was scheduled to be given again at 0600. It was given by the night RN but under the 0000 dose. This nurse charted the 0600 dose was non-administered due to the fact the 0000 dose was given around 0700 by the night RN. Will continue to monitor.
[2018-11-02] MEDS: FERROUS SULFATE 325 MG TABLET. PO SCH (08:07)
[2018-11-02] MEDS: SENNOSIDES/DOCUSATE 8.6/50MG TABLET. PO SCH (08:07)
[2018-11-02] MEDS: MAGNESIUM OXIDE 400 MG TABLET PO SCH (08:07)
[2018-11-02] MEDS: GABAPENTIN 300 MG CAPSULE. PO SCH ×2 (08:07→15:05)
[2018-11-02] MEDS: CITALOPRAM 20 MG TABLET. PO SCH (08:08)
[2018-11-02] MEDS: ASPIRIN ENTERIC COATED 81 MG TABLET.DR. PO SCH (08:08)
[2018-11-02] MEDS: POTASSIUM CHLORIDE 20 MEQ TABLET.ER. PO SCH (08:08)
[2018-11-02] MEDS: MULTIVITAMIN with MINERAL TABLET. PO SCH (08:08)
[2018-11-02] MEDS: FUROSEMIDE 20 MG TABLET PO SCH (08:08)
[2018-11-02] MEDS: PRAMIPEXOLE 0.25 MG TABLET. PO SCH (08:08)
[2018-11-02 08:20] LABS: HEMATOCRIT 25.8 % (36.0-47.0); HEMOGLOBIN 8.5 g/dL (12.0-15.5)
[2018-11-02 08:31] LABS: PROTHROMBIN TIME PATIENT 20.2 SEC (11.7-14.0)
--- NOTE | 2018-11-02 09:24 | NUR ---
Pharmacy Warfarin Dosing Note S: Pharmacy consulted to assist with anticoagulation therapy started 10/30/18 O: SAMANTHA FOUNTAIN is a 68 year old F with [facility] LABS: Last INR: 1.8 Last HGB: 8.5 Last HCT: 25.8 Last PLT: Last dose of 3 mg given on 11/01/18 at 1653 Vitamin K given: N Ongoing Drug Interactions: Citalopram A:INR of 1.8 is within desired range. Target range for this patient is: 1.6 - 2.5 P: Warfarin dose: 3 mg Prior to discharge then daily Bridge Therapy: None Next INR due Sunday 11/05 Pharmacy anticoagulation service will continue to follow. Charu King RPH, 11/02/18 [id number]
[2018-11-02] MEDS ORDERED: WARFARIN 3 MG TABLET. PO ONE (13:00)
[2018-11-02] MEDS ORDERED: WARF3TAB50 PO (13:23)
--- NOTE | 2018-11-02 13:30 | PDOC ---
PROGRESS NOTES Subjective Subjective Problems overnight:minimal pain, getting around well Objective Vital Signs Vital Signs Date Time Temp Pulse Resp B/P (MAP) Pulse Ox O2 Delivery O2 Flow Rate FiO2 11/02/18 13:07 97 Room Air 11/02/18 07:21 20 11/02/18 06:30 97.7 95 132/79 (96) 97.7 11/01/18 07:26 2.0 Physical Exam inga intact , neuro intact Labs Laboratory Tests Test 11/01/18 09:20 11/02/18 07:20 11/02/18 07:28 Hemoglobin 9.1 g/dL (12.0-15.5) 8.5 g/dL (12.0-15.5) Hematocrit 27.8 % (36.0-47.0) 25.8 % (36.0-47.0) Mean Corpuscular Hemoglobin Concent 33 g/dL (31-37) 33 g/dL (31-37) Prothrombin Time 19.0 SEC (11.7-14.0) 20.2 SEC (11.7-14.0) Prothromb Time International Ratio 1.6 (0.8-1.1) 1.8 (0.8-1.1) Laboratory Tests Test 11/02/18 07:20 11/02/18 07:28 Hemoglobin 8.5 g/dL (12.0-15.5) Hematocrit 25.8 % (36.0-47.0) Mean Corpuscular Hemoglobin Concent 33 g/dL (31-37) Prothrombin Time 20.2 SEC (11.7-14.0) Prothromb Time International Ratio 1.8 (0.8-1.1) Assessment Assessment POD# 2 total hip Plan Plan of half-way with outpt pt coumadin, f/u 2 weeks REGINA BARBA MD Nov 02, 2018 13:30
--- NOTE | 2018-11-02 15:28 | NUR ---
Patient left in a wheelchair with transportation and her sister around 1520. Discharge education was completed by this nurse, pharmacy, therapy, and her doctor prior to discharge. RENNY dressing instructions discussed with the patient and her sister. Coumadin to take at home was given to the patient by pharmacy prior to discharge. Coumadin education in regards to dosage, follow up, and PT/INR draws were done by this nurse and pharmacy. No IV access present upon discharge. RENNY dressing dry/intact without complications. NO concerns noted upon discharge.
--- NOTE | 2018-11-05 23:37 | DS ---
DATE OF DISCHARGE: 11/02/2018 ORTHOPEDIC DISCHARGE SUMMARY PRINCIPAL DIAGNOSIS: Degenerative joint disease of hip. PROCEDURE: Total hip arthroplasty. DISPOSITION: Home with outpatient physical therapy. Follow up in [address] Card. MEDICATIONS: Include Coumadin as directed by Anticoagulation Clinic and tramadol 50 mg p.o. q. 4 hours p.r.n. pain, dispensed #80. BRIEF DESCRIPTION OF HOSPITAL COURSE: The patient underwent an uncomplicated total hip arthroplasty and got up and around well with physical therapy, performing her activities of daily living safely. Hemoglobin and vital signs were stable throughout her stay, and she was discharged to home in stable condition with planned outpatient physical therapy. REGINA CARD MD DR: JUAREZ/benitez JOB#: [id number] / [id number] DALJIT Dolan MD
== END 2018-11-02 15:20 | disposition home or self-care (01) | DRG 470 ==
LOC: OPSVCIP 06:09 → 4 SOUTHEST 11:40
PROVIDERS: ADMIT Orthopaedic Surgery; ATTEND Orthopaedic Surgery
PROC: 0SRB02Z Replacement of Left Hip Joint with Metal on Polyethylene Synthetic Substitute, Open Approach (ICD-10-PCS; principal; 2018-10-30 07:30)
DX: M16.12 Unilateral primary osteoarthritis, left hip (principal); G89.29 Other chronic pain; Z96.651 Presence of right artificial knee joint; Z88.2 Allergy status to sulfonamides; Z88.8 Allergy status to other drugs, medicaments and biological substances; Z91.040 Latex allergy status; Z80.0 Family history of malignant neoplasm of digestive organs; Z80.1 Family history of malignant neoplasm of trachea, bronchus and lung; Z82.61 Family history of arthritis; Z90.710 Acquired absence of both cervix and uterus; Z90.49 Acquired absence of other specified parts of digestive tract
CPT/HCPCS: 36415; 72170; 73501; 85014; 85018; 85610; 85730; 86850; 86900; 86901; 88304; 88311; 94640; 94760; A7015; J0171; J0696; J1100; J1885; J2001; J2250; J2405; J2704; J2710; J2795; J3010; J3490; J7030; J7120; J7620; Q0162; 97116; 97150; 97530; 97535; G0378

== ENCOUNTER → 2018-11-05 | Outpatient (CLI) | payer MEDICARE, BC ==
[2018-11-02 06:30] VITALS: BP 132/79
[~2018-11-05] MED LIST changes: -CELECOXIB 100 MG CAPSULE. PO PRN; -HYDROcodone/APAP 7.5/325MG 1 TAB TABLET PO PRN; -KETOROLAC 30MG VIAL 30 MG, ROPIVacaine 0.5% PF 60 ML, EPINEPHrine 0.5 MG in IV NORMAL S... INT ART ONE; +WARF3TAB50 PO
[2018-11-05 11:52] LABS: PROTHROMBIN TIME PATIENT 18.7 SEC (11.7-14.0)
== END ==
LOC: LAB 10:41
PROVIDERS: ATTEND Orthopaedic Surgery
DX: Z79.01 Long term (current) use of anticoagulants (principal)
CPT/HCPCS: 36415; 85610

== ENCOUNTER 2019-02-18 16:29 | Emergency (ER) | payer MEDICARE, BC ==
[~2019-02-18] VITALS: Ht 152.4 cm; Wt 97.5 kg
[~2019-02-18 16:29] MED LIST changes: +OMEP-229 PO; -OMEP20CA10 PO; +OMEP40CA45 PO; -OMEP40CA5 PO; +POTA20TA4 PO; -POTA20TA82 PO; +SIMV40TA18 PO; -SIMV40TA3 PO
[2019-02-18] MEDS ORDERED: LIDOCAINE 2% 20 ML VIAL. IJ STA (17:26)
--- NOTE | 2019-02-18 17:32 | PHYS DOC ---
Past Medical History Past Medical History: Asthma, GERD, High Cholesterol, IBS Additional Past Medical Histor: PARKINSONS (NOT OFFICIALLY DX), MALIGNANT HYPERTHERMIA Past Surgical History: Appendectomy, Cholecystectomy, Hysterectomy Additional Past Surgical Histo: ligament repair in knees, ulnar nerve repair, carpal tunnel, FUNDIPLICATION Alcohol Use: Occasionally Drug Use: None Adult General Chief Complaint Chief Complaint: HIP PAIN HPI HPI Patient is a 68 year old female who presents after left hip replacement that started on her third. The patient reports her sacrospinal fire ever since then she's been struggling sciatica pain. The patient rates her pain 8 out of 10 in severity and sharp. She states she's been taking tramadol for the pain but has not been helping. Patient states she has left-sided back pain that radiates to her left leg. This surgery was done by Dr. Card. The patient states she's been going her primary care doctor for trigger point injections. Review of Systems Review of Systems Constitutional: Denies fever or chills [] Eyes: Denies change in visual acuity, redness, or eye pain [] HENT: Denies nasal congestion or sore throat [] Respiratory: Denies cough or shortness of breath [] Cardiovascular: No additional information not addressed in HPI [] GI: Denies abdominal pain, nausea, vomiting, bloody stools or diarrhea [] : Denies dysuria or hematuria [] Musculoskeletal: Reports L hip pain radiating down the L leg. Integument: Denies rash or skin lesions [] Neurologic: Denies headache, focal weakness or sensory changes [] Endocrine: Denies polyuria or polydipsia [] Complete systems were reviewed and found to be within normal limits, except as documented in this note. Current Medications Current Medications Current Medications Medications (Trade) Dose Ordered Sig/Kristin Start Time Stop Time Status Last Admin Dose Admin Lidocaine HCl 20 ml 1X STAT 02/18/19 17:26 02/18/19 17:29 DC 02/18/19 17:26 20 ML Allergies Allergies Allergies Coded Allergies Type Severity Reaction Last Updated Verified bacitracin Allergy Intermediate rash 10/30/18 Yes neomycin Allergy Intermediate rash 10/30/18 Yes polymyxin B Allergy Intermediate rash 10/30/18 Yes sulfamethoxazole Allergy Intermediate Nausea and Vomiting 10/30/18 Yes latex Allergy Mild MILD- GETS RASH 10/31/18 Yes adhesive Adverse Reaction Intermediate Rash-INCLUDING STERI STRIPS AND GLUE 10/30/18 Yes clavulanic acid Adverse Reaction Intermediate headache 10/30/18 Yes erythromycin base Adverse Reaction Intermediate vomiting 10/30/18 Yes morphine Adverse Reaction Intermediate vomiting 10/30/18 Yes nitrofurantoin Adverse Reaction Intermediate fatigue 10/30/18 Yes trimethoprim Adverse Reaction Intermediate Nausea and Vomiting 10/30/18 Yes amoxicillin Adverse Reaction Mild headache 10/30/18 Yes Physical Exam Physical Exam Constitutional: Well developed, well nourished, no acute distress, non-toxic appearance. [] HENT: Normocephalic, atraumatic, bilateral external ears normal, oropharynx moist, no oral exudates, nose normal. [] Eyes: PERRLA, EOMI, conjunctiva normal, no discharge. [] Neck: Normal range of motion, no tenderness, supple, no stridor. [] Skin: Warm, dry, no erythema, no rash. [] Back: Tenderness and Trigger point to L lower back. Extremities: No tenderness, no cyanosis, no clubbing, ROM intact, no edema. [] Neurologic: Alert and oriented X 3, normal motor function, normal sensory function, no focal deficits noted. [] Psychologic: Affect normal, judgement normal, mood normal. [] Current Patient Data Vital Signs Vital Signs Date Time Temp Pulse Resp B/P (MAP) Pulse Ox O2 Delivery O2 Flow Rate FiO2 02/18/19 17:00 97.2 82 14 130/98 (109) 98 Room Air 97.2 EKG EKG [] Radiology/Procedures Radiology/Procedures Performed 5 trigger point injections with 1 mL of 2% lidocaine at trigger points in lower back. Patients pain improved. Course & Med Decision Making Course & Med Decision Making Pertinent Labs and Imaging studies reviewed. (See chart for details) Will order an X-ray and perform trigger point injection with 2% lidocaine. X-ray appears unremarkable for acute changes. Patient is feeling better after trigger point injections. Discharge patient home. Dragon Disclaimer Dragon Disclaimer This electronic medical record was generated, in whole or in part, using a voice recognition dictation system. Departure Departure Impression: Primary Impression: Sciatica Disposition: HOME, SELF-CARE Condition: STABLE Referrals: DALJIT POON MD (PCP) Patient Instructions: Sciatica Additional Instructions: Thank you for visiting [facility]. We appreciate you trusting us with your care. If any additional problems come up don't hesitate to return to visit us. Please follow up with your primary care provider so they can plan additional care if needed and know about the problem that you had. If symptoms worsen come back to the Emergency Department. Any concerning symptoms that start such as chest pain, shortness of air, weakness or numbness on one side of the body, running high fevers or any other concerning symptoms return to the ER. Problem Qualifiers Primary Impression: Sciatica Laterality: left Qualified Codes: M54.32 - Sciatica, left side RONALD REESE APRN Feb 18, 2019 17:32
[2019-02-18 18:07] VITALS: BP 132/61
--- NOTE | 2019-02-18 20:04 | RAD ---
Examination: HIP LEFT 2V WITH PELVIS History: Pain involving the left hip with tenderness after bending Comparison/Correlation: 12/11/2018 frontal view pelvis and left hip Findings: Frontal view of the pelvis was obtained. Frontal and frog-leg lateral views of the left hip were provided. Left hip joint prosthesis is present. Postoperative lumbar spine fusion involving the mid to lower lumbar spine noted. No evidence of loosening involving total left hip joint prosthesis. No displaced fracture or bony destructive finding. Impression: No acute process. Left hip joint prosthesis is unremarkable. Electronically signed by: Alberto Sheffield MD (02/18/2019 8:02 PM) [facility]
== END 2019-02-18 18:15 | disposition home or self-care (01) ==
LOC: ER 16:29
DX: M54.42 Lumbago with sciatica, left side (principal); M25.552 Pain in left hip; J45.909 Unspecified asthma, uncomplicated; K21.9 Gastro-esophageal reflux disease without esophagitis; E78.00 Pure hypercholesterolemia, unspecified; K58.9 Irritable bowel syndrome, unspecified; Z88.1 Allergy status to other antibiotic agents; Z88.2 Allergy status to sulfonamides; Z91.040 Latex allergy status; Z88.5 Allergy status to narcotic agent; Z88.8 Allergy status to other drugs, medicaments and biological substances
CPT/HCPCS: 20552; 73502; 99284; J2001

== ENCOUNTER → 2019-03-20 | Outpatient (CLI) | payer MEDICARE, BC ==
[2019-02-18 18:07] VITALS: BP 132/61
[~2019-03-20] MED LIST changes: +ASPI-630 PO; +GADOTERATE 7.5 MMOL/15ML VIAL. IVP ONE; -OMEP-229 PO; +OMEP20CA16 PO
--- NOTE | 2019-03-21 09:37 | KCIC ---
MRI of the lumbar spine without contrast 03/20/2019 CLINICAL HISTORY: Chronic low back pain. History of previous surgery. TECHNIQUE: Unenhanced T1-weighted and T2-weighted sagittal and axial and inversion recovery sagittal images of the lumbar spine were obtained. The study was originally ordered without and with contrast. Intravenous access was unable to be established by the staff cytotechnologist and postcontrast images were unable to be obtained. FINDINGS: Comparison study is dated 12/20/2017. Very mild S-shaped curvature of the thoracolumbar spine is seen. The patient is post laminectomy and fusion using pedicle screws and stabilizing rods extending from L3 to L5. Bone graft material is seen within the L3-4 and L4-5 disc spaces. Degenerative signal changes and loss of height are seen involving all the disks of the lumbar spine. Degenerative signal changes are seen within the marrow surrounding these discs. A fluid collection is seen posterior to the thecal sac within the laminectomy site which measures 2.7 cm in greatest diameter. This may represent a seroma. It has not significantly changed since the previous examination. There is no associated mass effect. The conus medullaris is normal morphology, position, and signal characteristics. At the L1-2 disc space there is a mild generalized disc bulge. Degenerative changes are seen involving the facet joints bilaterally. There is mild ligamentum flavum hypertrophy bilaterally. These findings do not result in significant central spinal canal or neural foraminal stenosis. At the L2-3 disc space there is a mild generalized disc bulge. Degenerative changes are seen involving the facet joints bilaterally. There is mild ligamentum flavum hypertrophy bilaterally. These findings when combined result in mild central spinal canal stenosis. Moderate to severe right neural foraminal stenosis is seen. This has increased since the previous examination. The left neural foramen is patent. At the L3-4 and L4-5 levels degenerative changes are seen involving the facet joints bilaterally. These findings do not result in significant central spinal canal or neural foraminal stenosis. At the L5-S1 disc space there is a mild to moderate generalized disc bulge. This is eccentric to the left. Degenerative changes are seen involving the facet joints bilaterally. There is mild ligamentum flavum hypertrophy bilaterally. These findings when combined do not result in significant central spinal canal stenosis. Mild left neural foraminal stenosis is seen. The right neural foramen is patent. IMPRESSION: 1. Post laminectomy and fusion at L3-4 and L4-5. 2. The changes of degenerative disc disease are seen throughout the lumbar spine. These findings results in mild central spinal canal stenosis at L2-3. Moderate to severe right neural foraminal stenosis is seen at L2-3. Mild left neural foraminal stenosis is seen at L5-S1. Electronically signed by: Tom Hoffmann MD (03/21/2019 9:33 AM) [facility]
== END | disposition home or self-care (01) ==
LOC: KCIC MRI 15:11
PROVIDERS: ATTEND Physical Medicine & Rehabilitation Sports Medicine
DX: M51.16 Intervertebral disc disorders with radiculopathy, lumbar region (principal); M53.3 Sacrococcygeal disorders, not elsewhere classified; M48.07 Spinal stenosis, lumbosacral region
CPT/HCPCS: 72148; 82565

== ENCOUNTER 2019-04-06 10:10 | Emergency (ER) | payer MEDICARE, BC ==
[~2019-04-06] VITALS: Ht 152.4 cm; Wt 99.5 kg
[~2019-04-06 10:10] MED LIST changes: -GADOTERATE 7.5 MMOL/15ML VIAL. IVP ONE
[2019-04-06 10:26] VITALS: BP 134/74
[2019-04-06] MEDS ORDERED: LIDOCAINE 2% 20 ML VIAL. IJ STA (10:37)
[2019-04-06] MEDS ORDERED: HYDROcodone/APAP 5/325MG 1 TAB TABLET PO STA (10:37)
--- NOTE | 2019-04-06 11:09 | PHYS DOC ---
Past Medical History Past Medical History: Asthma, GERD, High Cholesterol, IBS Additional Past Medical Histor: PARKINSONS (NOT OFFICIALLY DX), MALIGNANT HYPERTHERMIA Past Surgical History: Appendectomy, Cholecystectomy, Hysterectomy Additional Past Surgical Histo: ligament repair in knees, ulnar nerve repair, carpal tunnel, FUNDIPLICATION Smoking Status: Never Smoker Alcohol Use: Occasionally Drug Use: None Adult General Chief Complaint Chief Complaint: FINGER INJURY HPI HPI Patient is a 69 year old female who presents with a sewing needle stuck in her left second digit. The patient states he isn't sewing machine at home and accidentally got in her finger. This happened around 9:30 AM. She denies any additional complaints. Complete ROS were reviewed and found to be within normal limits, except as documented in the HPI Current Medications Current Medications Current Medications Medications (Trade) Dose Ordered Sig/Kristin Start Time Stop Time Status Last Admin Dose Admin Acetaminophen/ Hydrocodone Bitart (Lortab 5/325) 1 tab 1X STAT 04/06/19 10:37 04/06/19 10:40 DC 04/06/19 10:52 1 TAB Lidocaine HCl 20 ml 1X STAT 04/06/19 10:37 04/06/19 10:40 DC 04/06/19 10:52 20 ML Allergies Allergies Allergies Coded Allergies Type Severity Reaction Last Updated Verified bacitracin Allergy Intermediate rash 10/30/18 Yes neomycin Allergy Intermediate rash 10/30/18 Yes polymyxin B Allergy Intermediate rash 10/30/18 Yes sulfamethoxazole Allergy Intermediate Nausea and Vomiting 10/30/18 Yes latex Allergy Mild MILD- GETS RASH 10/31/18 Yes adhesive Adverse Reaction Intermediate Rash-INCLUDING STERI STRIPS AND GLUE 10/30/18 Yes clavulanic acid Adverse Reaction Intermediate headache 10/30/18 Yes erythromycin base Adverse Reaction Intermediate vomiting 10/30/18 Yes morphine Adverse Reaction Intermediate vomiting 10/30/18 Yes nitrofurantoin Adverse Reaction Intermediate fatigue 10/30/18 Yes trimethoprim Adverse Reaction Intermediate Nausea and Vomiting 10/30/18 Yes amoxicillin Adverse Reaction Mild headache 10/30/18 Yes Physical Exam Physical Exam Constitutional: Well developed, well nourished, no acute distress, non-toxic appearance. [] HENT: Normocephalic, atraumatic, bilateral external ears normal, oropharynx moist, no oral exudates, nose normal. [] Eyes: PERRLA, EOMI, conjunctiva normal, no discharge. [] Neck: Normal range of motion, no tenderness, supple, no stridor. [] Skin: Sewing needle sticking out of L 2nd digit. Neurologic: Alert and oriented X 3, normal motor function, normal sensory function, no focal deficits noted. [] Psychologic: Affect normal, judgement normal, mood normal. [] Current Patient Data Vital Signs Vital Signs Date Time Temp Pulse Resp B/P (MAP) Pulse Ox O2 Delivery O2 Flow Rate FiO2 04/06/19 10:26 97.9 77 18 134/74 (94) 99 Room Air 97.9 EKG EKG [] Radiology/Procedures Radiology/Procedures [][facility] [address] [place], [place] [id number] IMAGING REPORT Signed PATIENT: SAMANTHA FOUNTAIN LACCOUNT: [id number] : 1950 LOCATION: ER AGE: 69 SEX: F EXAM STATUS: REG ER ORD. PHYSICIAN: RONALD REESE APRN REASON: sewing machine trauma PROCEDURE: HAND LEFT 3V PROCEDURE: HAND LEFT 3V STUDY DATE: 04/06/2019 CLINICAL INDICATION / HISTORY: Sewing machine trauma. TECHNIQUE: PA, lateral and oblique views of the left hand. COMPARISON: None FINDINGS: No fracture or dislocation is identified. The bone density is normal. The joint spaces are maintained, and there are no erosions to suggest an inflammatory arthropathy. The soft tissues show a needle in the tail and in the distal tip of the index finger from a dorsal approach, coursing through the nail bed but distal to the distal tuft of the second digit distal phalanx.. IMPRESSION: Sewing needle coursing from a dorsal approach through the left index finger nailbed distal to the distal phalanx. No associated acute osseous abnormality noted. Electronically signed by: Patrick Callejas MD (04/06/2019 11:03 AM) [facility] DICTATED and SIGNED BY: PATRICK CALLEJAS MD DATE: 04/06/19 1103 Course & Med Decision Making Course & Med Decision Making Pertinent Labs and Imaging studies reviewed. (See chart for details) Will give a norco and pull out of finger. Will also obtain imaging. Pulled sewing needle out of needle. Will d/c home. Dragon Disclaimer Dragon Disclaimer This electronic medical record was generated, in whole or in part, using a voice recognition dictation system. Departure Departure Impression: Primary Impression: Foreign body (FB) in soft tissue Disposition: 01 HOME, SELF-CARE Condition: STABLE Referrals: DALJIT POON MD (PCP) Additional Instructions: Thank you for visiting [facility]. We appreciate you trusting us with your care. If any additional problems come up don't hesitate to return to visit us. Please follow up with your primary care provider so they can plan additional care if needed and know about the problem that you had. If symptoms worsen come back to the Emergency Department. Any concerning symptoms that start such as chest pain, shortness of air, weakness or numbness on one side of the body, running high fevers or any other concerning symptoms return to the ER. RONALD REESE APRN Apr 06, 2019 11:08
== END 2019-04-06 11:58 | disposition home or self-care (01) ==
LOC: ER 10:10
DX: S60.451A Superficial foreign body of left index finger, initial encounter (principal); J45.909 Unspecified asthma, uncomplicated; K21.9 Gastro-esophageal reflux disease without esophagitis; E78.00 Pure hypercholesterolemia, unspecified; K58.9 Irritable bowel syndrome, unspecified; G20 Parkinson's disease; Z90.89 Acquired absence of other organs; Z90.49 Acquired absence of other specified parts of digestive tract; Z90.710 Acquired absence of both cervix and uterus; Z98.890 Other specified postprocedural states; Z88.1 Allergy status to other antibiotic agents; Z88.6 Allergy status to analgesic agent; Z88.4 Allergy status to anesthetic agent; Z91.040 Latex allergy status; Z88.2 Allergy status to sulfonamides; Z88.5 Allergy status to narcotic agent; W45.8XXA Other foreign body or object entering through skin, initial encounter; Y93.89 Activity, other specified; Y92.89 Other specified places as the place of occurrence of the external cause; Y99.8 Other external cause status
CPT/HCPCS: 73130; 96372; 99284; J2001

== ENCOUNTER 2019-05-20 15:24 | Observation (INO) | payer MEDICARE, BC ==
[~2019-05-20] VITALS: Ht 152.4 cm; Wt 100.9 kg
[~2019-05-20 15:24] MED LIST changes: +DOXY100T PO
[2019-05-20] MEDS ORDERED: ASPIRIN CHEWABLE 81 MG TABLET. PO ONE (16:15)
[2019-05-20 16:23] LABS: BASO % 0 % (0-3); EOS # 0.2 x10^3/uL (0.0-0.7); EOS % 4 % (0-3); HEMATOCRIT 33.1 % (36.0-47.0); HEMOGLOBIN 10.2 g/dL (12.0-15.5); LYMPH # 1.1 x10^3/uL (1.0-4.8); LYMPH % 23 % (24-48); MEAN CORPUSCULAR HEMOGLOBIN 24 pg (25-35); MEAN CORPUSCULAR HGB CONC 31 g/dL (31-37); MEAN CORPUSCULAR VOLUME 77 fL (79-100); MONO # 0.4 x10^3/uL (0.0-1.1); MONO % 7 % (0-9); NEUT # 3.3 x10^3/uL (1.8-7.7); NEUT % 65 % (31-73); PLATELET COUNT 346 x10^3/uL (140-400); RED BLOOD COUNT 4.29 x10^6/uL (3.50-5.40); RED CELL DISTRIBUTION WIDTH 20.9 % (11.5-14.5)
[2019-05-20 16:35] LABS: CALCIUM 9.1 mg/dL (8.5-10.1); CREATININE 1.1 mg/dL (0.6-1.0); POTASSIUM 4.5 mmol/L (3.5-5.1)
[2019-05-20 16:38] LABS: ALBUMIN 3.2 g/dL (3.4-5.0); TOTAL BILIRUBIN 0.5 mg/dL (0.2-1.0); TOTAL PROTEIN 6.4 g/dL (6.4-8.2)
[2019-05-20] MEDS: NITROGLYCERIN SUBLINGUAL 0.4 MG BOTTLE OF 25. SL PRN ×2 (16:42→17:06)
--- NOTE | 2019-05-20 16:56 | PHYS DOC ---
Past Medical History Past Medical History: Asthma, GERD, High Cholesterol, IBS, Pneumonia, Other Additional Past Medical Histor: MALIGNANT HYPERTHERMIA,MOVEMENT DISORDER Past Surgical History: Appendectomy, Cholecystectomy, Hip Replacement, Hysterectomy, Knee Replacement, Other Additional Past Surgical Histo: ligament repair in knees,ulnar nerve repair,carpal tunnel,FUNDIPLICATION Smoking Status: Never Smoker Alcohol Use: Occasionally Drug Use: None Adult General Chief Complaint Chief Complaint: CHEST PAIN HPI HPI Patient is a 69 year old female with history of dyslipidemia, asthma, movement disorder, GERD, malignant hypertension who presents with complaint of chest pain. Patient complaining of nonexertional left-sided sharp chest pain that is started about 3 hours prior to arrival. Is a constant pain that getting better and worse. Patient states the pain was between 2 and 5 and complaining of radiation of pain to her back associated with dizziness. Patient denies cough and shortness of breath, nausea vomiting, palpitation, fever and chills, history of the same pain. Patient states she takes 1 baby aspirin every day and did not take any pain medication after she started to have chest pain. Patient rated her pain 2/10 at arrival to ER. Review of Systems Review of Systems Constitutional: Denies fever or chills [] Eyes: Denies change in visual acuity, redness, or eye pain [] HENT: Denies nasal congestion or sore throat [] Respiratory: Denies cough or shortness of breath [] Cardiovascular: No additional information not addressed in HPI [] GI: Denies abdominal pain, nausea, vomiting, bloody stools or diarrhea [] : Denies dysuria or hematuria [] Musculoskeletal: Denies back pain or joint pain [] Integument: Denies rash or skin lesions [] Neurologic: Denies headache, focal weakness or sensory changes [] Endocrine: Denies polyuria or polydipsia [] All other systems were reviewed and found to be within normal limits, except as documented in this note. Current Medications Current Medications Current Medications Medications (Trade) Dose Ordered Sig/Kristin Start Time Stop Time Status Last Admin Dose Admin Aspirin (Children'S Aspirin) 243 mg 1X ONCE 05/20/19 16:15 05/20/19 16:16 DC 05/20/19 16:41 243 MG Nitroglycerin (Nitrostat) 0.4 mg PRN Q5MIN PRN 05/20/19 16:15 05/21/19 16:14 05/20/19 17:06 0.4 MG Allergies Allergies Allergies Coded Allergies Type Severity Reaction Last Updated Verified bacitracin Allergy Intermediate rash 10/30/18 Yes neomycin Allergy Intermediate rash 10/30/18 Yes polymyxin B Allergy Intermediate rash 10/30/18 Yes sulfamethoxazole Allergy Intermediate Nausea and Vomiting 10/30/18 Yes latex Allergy Mild MILD- GETS RASH 10/31/18 Yes adhesive Adverse Reaction Intermediate Rash-INCLUDING STERI STRIPS AND GLUE 10/30/18 Yes clavulanic acid Adverse Reaction Intermediate headache 10/30/18 Yes erythromycin base Adverse Reaction Intermediate vomiting 10/30/18 Yes morphine Adverse Reaction Intermediate vomiting 10/30/18 Yes nitrofurantoin Adverse Reaction Intermediate fatigue 10/30/18 Yes trimethoprim Adverse Reaction Intermediate Nausea and Vomiting 10/30/18 Yes amoxicillin Adverse Reaction Mild headache 10/30/18 Yes Physical Exam Physical Exam Constitutional: Well developed, well nourished, mild distress, non-toxic appearance. [] HENT: Normocephalic, atraumatic. Eyes: PERRLA, EOMI, conjunctiva normal, no discharge. [] Neck: Normal range of motion, no tenderness, supple, no stridor. [] Cardiovascular:Heart rate regular rhythm, no murmur [] Lungs & Thorax: Bilateral breath sounds clear to auscultation [] Abdomen: Bowel sounds normal, soft, no tenderness, no masses, no pulsatile masses. [] Skin: Warm, dry, no erythema, no rash. [] Back: No tenderness, no CVA tenderness. [] Extremities: No tenderness, no cyanosis, no clubbing, ROM intact, no edema. [] Neurologic: Alert and oriented X 3, no focal deficits noted. [] Psychologic: Affect normal, judgement normal, mood normal. [] Current Patient Data Vital Signs Vital Signs Date Time Temp Pulse Resp B/P (MAP) Pulse Ox O2 Delivery O2 Flow Rate FiO2 05/20/19 17:17 70 15 115/64 (81) 91 Nasal Cannula 2.0 05/20/19 15:26 97.6 97.6 Lab Values Laboratory Tests Test 05/20/19 15:38 White Blood Count 5.0 x10^3/uL (4.0-11.0) Red Blood Count 4.29 x10^6/uL (3.50-5.40) Hemoglobin 10.2 g/dL (12.0-15.5) L Hematocrit 33.1 % (36.0-47.0) L Mean Corpuscular Volume 77 fL (79-100) L Mean Corpuscular Hemoglobin 24 pg (25-35) L Mean Corpuscular Hemoglobin Concent 31 g/dL (31-37) Red Cell Distribution Width 20.9 % (11.5-14.5) H Platelet Count 346 x10^3/uL (140-400) Neutrophils (%) (Auto) 65 % (31-73) Lymphocytes (%) (Auto) 23 % (24-48) L Monocytes (%) (Auto) 7 % (0-9) Eosinophils (%) (Auto) 4 % (0-3) H Basophils (%) (Auto) 0 % (0-3) Neutrophils # (Auto) 3.3 x10^3/uL (1.8-7.7) Lymphocytes # (Auto) 1.1 x10^3/uL (1.0-4.8) Monocytes # (Auto) 0.4 x10^3/uL (0.0-1.1) Eosinophils # (Auto) 0.2 x10^3/uL (0.0-0.7) Basophils # (Auto) 0.0 x10^3/uL (0.0-0.2) Segmented Neutrophils % 49 % (35-66) Lymphocytes % 40 % (24-48) Monocytes % 5 % (0-10) Eosinophils % 6 % (0-5) H Platelet Estimate Adequate (ADEQUATE) Large Platelets Present Hypochromasia Slight Poikilocytosis Slight Anisocytosis Mod Microcytosis Slight Ovalocytes Few Prothrombin Time 11.9 SEC (11.7-14.0) Prothrombin Time INR 0.9 (0.8-1.1) D-Dimer (Olivia) 1.27 ug/mlFEU (0.00-0.50) H Sodium Level 140 mmol/L (136-145) Potassium Level 4.5 mmol/L (3.5-5.1) Chloride Level 103 mmol/L (98-107) Carbon Dioxide Level 30 mmol/L (21-32) Anion Gap 7 (6-14) Blood Urea Nitrogen 22 mg/dL (7-20) H Creatinine 1.1 mg/dL (0.6-1.0) H Estimated GFR (Cockcroft-Gault) 49.0 BUN/Creatinine Ratio 20 (6-20) Glucose Level 100 mg/dL (70-99) H Calcium Level 9.1 mg/dL (8.5-10.1) Magnesium Level 2.0 mg/dL (1.8-2.4) Total Bilirubin 0.5 mg/dL (0.2-1.0) Aspartate Amino Transferase (AST) 19 U/L (15-37) Alanine Aminotransferase (ALT) 20 U/L (14-59) Alkaline Phosphatase 84 U/L (46-116) Creatine Kinase 62 U/L (26-192) Troponin I Quantitative < 0.017 ng/mL (0.000-0.055) UP-Htc-U-Type Natriuretic Peptide 91 pg/mL (0-124) Total Protein 6.4 g/dL (6.4-8.2) Albumin 3.2 g/dL (3.4-5.0) L Albumin/Globulin Ratio 1.0 (1.0-1.7) Lipase 103 U/L (73-393) Laboratory Tests 05/20/19 15:38 Laboratory Tests 05/20/19 15:38 EKG EKG EKG interpreted by me. EKG at 1532 showed normal sinus rhythm at rate of 72, PACs, nonspecific T wave abnormality, no acute ST and T wave elevation. Radiology/Procedures Radiology/Procedures [facility] [address] [place] [address] IMAGING REPORT Signed PATIENT: SAMANTHA FOUNTAIN LACCOUNT: [id number] : 1950 LOCATION: ER AGE: 69 SEX: F EXAM STATUS: REG ER ORD. PHYSICIAN: OJSE KEMP MD REASON: CHEST PAIN/SOA PROCEDURE: PORTABLE CHEST 1V Single view of the chest. 05/20/2019 4:26 PM Indication: Chest pain Comparison: Chest radiograph April 25, 2019 Findings: There is no focal consolidation. There is no pleural effusion or pneumothorax. The cardiomediastinal silhouette and pulmonary vasculature are within normal limits. No acute osseous abnormalities are seen. Impression: No evidence of acute cardiopulmonary process. Electronically signed by: Guero Drew MD (05/20/2019 4:57 PM) [id number] DICTATED and SIGNED BY: GUERO DREW MD DATE: 05/20/191656 Course & Med Decision Making Course & Med Decision Making Pertinent Labs and Imaging studies reviewed. (See chart for details) Evaluation of patient in ER showed 69-year-old female patient with heart score of 5 and complaining of chest pain with unremarkable EKG and labs except for mild elevation of d-dimer and renal insufficiency. VQ scan is pending. Patient requiring admission for further evaluation and treatment. Discussed with Dr. Pelletier who is in agreement with admission. Discussed findings and plan with patient and family, who acknowledge understanding and agreement. Dragon Disclaimer Dragon Disclaimer This electronic medical record was generated, in whole or in part, using a voice recognition dictation system. Departure Departure Impression: Primary Impression: Acute chest pain Additional Impressions: Elevated d-dimer Renal insufficiency Disposition: ADMITTED INPATIENT (At 1757) Admitting Physician: ANTONIO (Dr. Pelletier accepted admission at 1755) Referrals: DALJIT POON MD (PCP) The HEART Score for CP Pts HEART Score for Chest Pain: HEART Score for Chest Pain Response (Comments) Value History Moderately Suspicious 1 ECG Nonspecific Repolarizatio 1 Age > 65 2 Risk Factors 1 or 2 Risk Factors 1 Troponin < Normal Limit 0 Total 5 Risk Factors: Risk Factors: DM, Current or recent (<one month) smoker, HTN, HLP, family history of CAD, obesity. Risk Scores: Score 0 - 3: 2.5% MACE over next 6 weeks - Discharge Home Score 4 - 6: 20.3% MACE over next 6 weeks - Admit for Clinical Observation Score 7 - 10: 72.7% MACE over next 6 weeks - Early Invasive Strategies Problem Qualifiers JOSE KEMP MD May 20, 2019 16:56
--- NOTE | 2019-05-20 17:00 | RAD ---
Single view of the chest. 05/20/2019 4:26 PM Indication: Chest pain Comparison: Chest radiograph April 25, 2019 Findings: There is no focal consolidation. There is no pleural effusion or pneumothorax. The cardiomediastinal silhouette and pulmonary vasculature are within normal limits. No acute osseous abnormalities are seen. Impression: No evidence of acute cardiopulmonary process. Electronically signed by: Guero Dhaliwal MD (05/20/2019 4:57 PM) [id number]
[2019-05-20 17:02] LABS: PROTHROMBIN TIME PATIENT 11.9 SEC (11.7-14.0)
[2019-05-20 17:09] LABS: D-DIMER 1.27 ug/mlFEU (0.00-0.50)
[2019-05-20 17:20] LABS: % EOS 6 % (0-5); % LYMPHS 40 % (24-48); % MONOS 5 % (0-10); % SEGS 49 % (35-66); PLT ESTIMATE ADEQUATE (ADEQUATE)
[2019-05-20 17:22] LABS: ANISOCYTOSIS MOD; HYPOCHROMIA SLIGHT; MICROCYTOSIS SLIGHT; OVALOCYTES FEW; POIKILOCYTOSIS SLIGHT
[2019-05-20 20:05] VITALS: BP 143/73
--- NOTE | 2019-05-20 20:20 | RAD ---
Study: NUCLEAR MEDICINE VENTILATION/PERFUSION SCAN History: Shortness of air, chest pain, elevated d-dimer. Comparison: Correlation is made to the same day single view chest radiograph Technique: Perfusion imaging performed after intravenous administration of 5 mCi Technetium 99m MAA. Multiple projection planar images of the lungs were obtained. Ventilation imaging was not performed. Findings: No localized perfusion defect to suggest a pulmonary embolism. Localized absence of radiotracer deposition on the left corresponds to the cardiomediastinal silhouette. IMPRESSION: Low probability for pulmonary embolism on this study performed with perfusion imaging alone. Electronically signed by: ANGEL THOMPSON MD (05/20/2019 8:18 PM) [id number]
[2019-05-20] MEDS ORDERED: CYCLOBENZAPRINE 10 MG TABLET. PO PRN (21:45)
[2019-05-20] MEDS ORDERED: traMADol 50 MG TABLET PO PRN (21:45)
[2019-05-20] MEDS ORDERED: ALBUTEROL SULFATE 2.5 MG/3 ML NEBU. INH PRN (21:45)
[2019-05-20] MEDS ORDERED: DICLOFENAC SODIUM 1% TOPICAL GEL 100GM TUBE. TP PRN (21:45)
[2019-05-20] MEDS ORDERED: LATANOPROST 0.005% OPHTH SOLUTION 2.5ML BOTTLE. OU SCH (22:00)
[2019-05-20] MEDS ORDERED: CITALOPRAM 20 MG TABLET. PO SCH (22:00)
[2019-05-20] MEDS ORDERED: PANTOPRAZOLE 40 MG TABLET.DR. PO SCH (22:00)
[2019-05-20] MEDS ORDERED: PRAMIPEXOLE 0.25 MG TABLET. PO SCH (22:00)
[2019-05-20] MEDS: GABAPENTIN 300 MG CAPSULE. PO SCH (22:23)
[2019-05-20 23:10] VITALS: BP_SYST 110; BP_SYST 117; BP_DIAS 55
[2019-05-21 03:20] VITALS: BP 139/63
--- NOTE | 2019-05-21 05:34 | EKG ---
[facility] [address] [place] [address] Test Date: 2019-05-20 Test Time: 15:32:14 Pat Name: SAMANTHA FOUNTAIN Department: Room: Gender: F Bartacker: : 1950 Requested By: JOSE KEMP Order Number: [id number] Reading MD: Measurements Intervals [place] Rate: 71 P: 36 SC: 188 QRS: 9 QRSD: 80 T: 3 QT: 374 QTc: 410 Interpretive Statements SINUS RHYTHM ATRIAL PREMATURE COMPLEX(ES) NON SPECIFIC T ABNORMALITY BORDERLINE ECG No previous ECG available for comparison
[2019-05-21 07:35] VITALS: BP 135/58
[2019-05-21] MEDS ORDERED: PRAMIPEXOLE 0.25 MG TABLET. PO SCH (08:00)
[2019-05-21] MEDS ORDERED: FUROSEMIDE 20 MG TABLET PO SCH (09:00)
[2019-05-21] MEDS ORDERED: ASPIRIN ENTERIC COATED 81 MG TABLET.DR. PO SCH (09:00)
[2019-05-21] MEDS ORDERED: POTASSIUM CHLORIDE 20 MEQ TABLET.ER. PO SCH (09:00)
[2019-05-21] MEDS ORDERED: ACETAMINOPHEN 325 MG TABLET. PO PRN (09:15)
[2019-05-21] MEDS: GABAPENTIN 300 MG CAPSULE. PO SCH ×2 (09:32→13:56)
[2019-05-21 10:41] VITALS: BP 122/69
--- NOTE | 2019-05-21 10:44 | PDOC2 ---
LYDIA PETTIT MEDICAL PAYMENT POSTER 05/21/19 1044: CARDIAC CONSULT DATE OF CONSULT Date of Consult DATE: 05/21/19 TIME: 10:43 REASON FOR CONSULT Reason for Consult: Chest pain REFERRING PHYSICIAN Referring Physician: Prabhu SOURCE Source: Chart review, Patient HISTORY OF PRESENT ILLNESS HISTORY OF PRESENT ILLNESS This is a pleasant 69 yo female admitted for complains of chest pain. Reports that yesterday she started having left chest tightness around 3PM and lasted till about 5 PM. Also felt some tiredness to her left arm. She was given 2 NTG and ASA and her CP has not recurred since then. Denies any palpitations, dizziness, SOA or nausea associated with her discomfort. Denies any exertional CP nor CARTER. She is able to walk >100 ft without getting SOA or with CP. No prior symptoms. SHe blames this discomfort to her arthritis but she does however able to do significant ROM to her shoulders neck and legs without difficulty. No recent falls, injury or passing out. She has never seen a heart docotr before and has had remote stress test. She takes tramadol, tylenol and used to take zocor for her HLP but decided to stop and trying it with diet. No wheezing and her asthma is much controlled. No recent coughing, fever or chills. PAST MEDICAL HISTORY Cardiovascular: Hyperlipidemia Pulmonary: Asthma, Pulmonary embolus (2016 after GI surgery) CENTRAL NERVOUS SYSTEM: Migraine (?) GI: GERD Heme/Onc: No pertinent hx Hepatobiliary: No pertinent hx, Cholelithiasis Psych: Anxiety Musculoskeletal: low back pain, Osteoarthritis Rheumatologic: No pertinent hx Infectious disease: No pertinent hx ENT: Other (cataract) Renal/: Chronic renal insuff (NSAID induced) Endocrine: No pertinent hx Dermatology: No pertinent hx PAST SURGICAL HISTORY Past Surgical History: Appendectomy, Cholecystectomy, Cataract Removal, Total hip replacement (left), Total knee replacement (right), Hysterectomy, Other (lumbar fusion; bilateral toe surgery) FAMILY HISTORY Family History noncontributory SOCIAL HISTORY Smoke: No ALCOHOL: rare Drugs: None Lives: with Family CURRENT MEDICATIONS CURRENT MEDICATIONS Current Medications Medications (Trade) Dose Ordered Sig/Kristin Route PRN Reason Start Time Stop Time Status Last Admin Dose Admin Aspirin (Children'S Aspirin) 243 mg 1X ONCE PO 05/20/19 16:15 05/20/19 16:16 DC 05/20/19 16:41 Nitroglycerin (Nitrostat) 0.4 mg PRN Q5MIN PRN SL CP RATING > 1/10 05/20/19 16:15 05/21/19 16:14 05/20/19 17:06 Aspirin (Ecotrin) 81 mg DAILY PO 05/21/19 09:00 05/21/19 09:32 Furosemide (Lasix) 10 mg DAILY PO 05/21/19 09:00 05/21/19 09:32 Latanoprost (Xalatan) 1 drop HS OU 05/20/19 22:00 05/20/19 22:23 Potassium Chloride (Klor-Con) 20 meq DAILY PO 05/21/19 09:00 05/21/19 09:32 Pramipexole Dihydrochloride (miraPEX) 0.25 mg DAILY08 PO 05/21/19 08:00 05/21/19 09:32 Pramipexole Dihydrochloride (miraPEX) 0.75 mg DAILYWSUP PO 05/20/19 22:00 05/20/19 22:23 Citalopram Hydrobromide (CeleXA) 20 mg QHS PO 05/20/19 22:00 05/20/19 22:23 Gabapentin (Neurontin) 300 mg TID PO 05/20/19 22:00 05/21/19 09:32 Pantoprazole Sodium (Protonix) 40 mg DAILYBFRSUP PO 05/20/19 22:00 05/20/19 22:24 Acetaminophen (Tylenol) 650 mg PRN Q6HRS PRN PO MILD PAIN 1-3 05/21/19 09:15 05/21/19 09:32 ALLERGIES ALLERGIES: Coded Allergies: bacitracin (Verified Allergy, Intermediate, rash, 10/30/18) neomycin (Verified Allergy, Intermediate, rash, 10/30/18) polymyxin B (Verified Allergy, Intermediate, rash, 10/30/18) sulfamethoxazole (Verified Allergy, Intermediate, Nausea and Vomiting, 10/30/18) latex (Verified Allergy, Mild, MILD- GETS RASH, 10/31/18) adhesive (Verified Adverse Reaction, Intermediate, Rash-INCLUDING STERI STRIPS AND GLUE, 10/30/18) INCLUDING STERI STRIPS & GLUE clavulanic acid (Verified Adverse Reaction, Intermediate, headache, 10/30/18) erythromycin base (Verified Adverse Reaction, Intermediate, vomiting, 10/30/18) morphine (Verified Adverse Reaction, Intermediate, vomiting, 10/30/18) nitrofurantoin (Verified Adverse Reaction, Intermediate, fatigue, 10/30/18) CAUSES LETHARGY AND WEAKNESS trimethoprim (Verified Adverse Reaction, Intermediate, Nausea and Vomiting, 10/30/18) amoxicillin (Verified Adverse Reaction, Mild, headache, 10/30/18) ROS Review of System 14 po9int ROS evaluated with pertinent positives noted per HPI PHYSICAL EXAM General: Alert, Oriented X3, Cooperative, No acute distress HEENT: Atraumatic, Mucous membr. moist/pink Lungs: Clear to auscultation, Normal air movement Heart: Regular rate (SR), Normal S1, Normal S2, No murmurs Abdomen: Soft, No tenderness Extremities: No cyanosis, No edema Skin: No breakdown, No significant lesion Neuro: Normal speech, Sensation intact Psych/Mental Status: Mental status NL, Mood NL MUSCULOSKELETAL: Full range of motion without pain, Osteoarthritic changes both hands VITALS/I&O VITALS/I&O: Vital Signs Date Time Temp Pulse Resp B/P (MAP) Pulse Ox O2 Delivery O2 Flow Rate FiO2 05/21/19 08:00 Room Air 05/21/19 07:35 97.6 70 18 135/58 (83) 96 97.6 05/20/19 23:10 I & O 05/20/19 05/20/19 05/21/19 15:00 23:00 07:00 Intake Total 180 ml Output Total 300 ml Balance -120 ml LABS Lab: Laboratory Tests Test 05/20/19 15:38 05/20/19 21:00 05/21/19 00:20 White Blood Count 5.0 x10^3/uL (4.0-11.0) Red Blood Count 4.29 x10^6/uL (3.50-5.40) Hemoglobin 10.2 g/dL (12.0-15.5) L Hematocrit 33.1 % (36.0-47.0) L Mean Corpuscular Volume 77 fL (79-100) L Mean Corpuscular Hemoglobin 24 pg (25-35) L Mean Corpuscular Hemoglobin Concent 31 g/dL (31-37) Red Cell Distribution Width 20.9 % (11.5-14.5) H Platelet Count 346 x10^3/uL (140-400) Neutrophils (%) (Auto) 65 % (31-73) Lymphocytes (%) (Auto) 23 % (24-48) L Monocytes (%) (Auto) 7 % (0-9) Eosinophils (%) (Auto) 4 % (0-3) H Basophils (%) (Auto) 0 % (0-3) Neutrophils # (Auto) 3.3 x10^3/uL (1.8-7.7) Lymphocytes # (Auto) 1.1 x10^3/uL (1.0-4.8) Monocytes # (Auto) 0.4 x10^3/uL (0.0-1.1) Eosinophils # (Auto) 0.2 x10^3/uL (0.0-0.7) Basophils # (Auto) 0.0 x10^3/uL (0.0-0.2) Segmented Neutrophils % 49 % (35-66) Lymphocytes % 40 % (24-48) Monocytes % 5 % (0-10) Eosinophils % 6 % (0-5) H Platelet Estimate Adequate (ADEQUATE) Large Platelets Present Hypochromasia Slight Poikilocytosis Slight Anisocytosis Mod Microcytosis Slight Ovalocytes Few Prothrombin Time 11.9 SEC (11.7-14.0) Prothrombin Time INR 0.9 (0.8-1.1) D-Dimer (Olivia) 1.27 ug/mlFEU (0.00-0.50) H Sodium Level 140 mmol/L (136-145) Potassium Level 4.5 mmol/L (3.5-5.1) Chloride Level 103 mmol/L (98-107) Carbon Dioxide Level 30 mmol/L (21-32) Anion Gap 7 (6-14) Blood Urea Nitrogen 22 mg/dL (7-20) H Creatinine 1.1 mg/dL (0.6-1.0) H Estimated GFR (Cockcroft-Gault) 49.0 BUN/Creatinine Ratio 20 (6-20) Glucose Level 100 mg/dL (70-99) H Calcium Level 9.1 mg/dL (8.5-10.1) Magnesium Level 2.0 mg/dL (1.8-2.4) Total Bilirubin 0.5 mg/dL (0.2-1.0) Aspartate Amino Transferase (AST) 19 U/L (15-37) Alanine Aminotransferase (ALT) 20 U/L (14-59) Alkaline Phosphatase 84 U/L (46-116) Creatine Kinase 62 U/L (26-192) Troponin I Quantitative < 0.017 ng/mL (0.000-0.055) < 0.017 ng/mL (0.000-0.055) < 0.017 ng/mL (0.000-0.055) AV-Ffz-K-Type Natriuretic Peptide 91 pg/mL (0-124) Total Protein 6.4 g/dL (6.4-8.2) Albumin 3.2 g/dL (3.4-5.0) L Albumin/Globulin Ratio 1.0 (1.0-1.7) Lipase 103 U/L (73-393) Laboratory Tests 05/20/19 15:38 Laboratory Tests 05/20/19 15:38 ASSESSMENT/PLAN ASSESSMENT/PLAN 1. Chest pain: V/Q negative for PE. No further recurrence since alleviation. No acute EKG changes, trops nml. EF and WM nml. Possible MSK. 2. Asthma: controlled 3. Coronary calcifications: per CTA 03/2019 4. HLP: was on zocor in the past 5. PAT: incidental finding x1 otherwise SR without associated symptoms. 6. CKD3: reported due to past chronic NSAID. BP controlled. 7. Thyroid nodule: TSH normal. per PCP 8. Continued DDIMER elevation: 1.65 04/25/2019 and 05/20/2019 1.27. Recent CTA n egative for PE and V/Q low probability. 9. Microcytic hypochromic anemia: per PCP Hgb 10.2 Fe def? Recommendations 1. Start lipitor, baby ASA if pt is willing. 2. Follow up in office and will plan for outpt stress test. Discussed plan with pt. 3. Dietitian consult. Continue wt loss. MAGALI CHANDLER MD 05/21/19 1607: CARDIAC CONSULT ASSESSMENT/PLAN ASSESSMENT/PLAN Patient seen and examined. Agree with above nurse practitioner note. Atypical chest pain. Echo within normal limits. Supportive care. Follow-up with outpatient stress testing as noted above. LYDIA PETTIT MEDICAL PAYMENT POSTER May 21, 2019 10:44 MAGALI CHANDLER MD May 21, 2019 15:47
[2019-05-21 11:30] LABS: CHOLESTEROL/HDL RATIO 2.9
[2019-05-21] MEDS ORDERED: ATOR10TA60 PO (11:49)
--- NOTE | 2019-05-21 11:52 | NUR ---
SS following for discharge planning. SS reviewed pt chart and discussed with RN. Pt is from home with daughter and is currently on room air. Discharge order on the chart.
--- NOTE | 2019-05-21 12:05 | SSS ---
ADMIT DATE: 05/21/2019 CHIEF COMPLAINT: Chest pain. HISTORY OF PRESENT ILLNESS: The patient is a pleasant middle-aged female, well known to our service. Last night, she presented to the ER with chest pain. We admitted overnight for observation. This morning, she is doing well and wants to go home. I talked to Dr. Rinaldi, he is okay with her going. If her echo looks good, we plan to discharge this afternoon. PAST MEDICAL HISTORY: GERD, hyperlipidemia, irritable bowel syndrome, pneumonia, hypertension, cholecystectomy, hip replacement, hysterectomy, knee replacement, ulnar nerve repair, carpal tunnel surgery, fundoplication. ALLERGIES: AMOXICILLIN, BACITRACIN, CLAVULANIC ACID, ERYTHROMYCIN, ADHESIVE, LATEX, MORPHINE, NEOMYCIN, NITROFURANTOIN, POLYMYXIN B, SULFAMETHOXAZOLE AND TRIMETHOPRIM. FAMILY HISTORY: Coronary artery disease. SOCIAL HISTORY: She does not drink, smoke or take drugs. MEDICATIONS: Reviewed, please refer to the MRAD. REVIEW OF SYSTEMS: GENERAL: No history of weight change, weakness or fevers. SKIN: No bruising, hair changes or rashes. EYES: No blurred, double or loss of vision. NOSE AND THROAT: No history of nosebleeds, hoarseness or sore throat. HEART: No history of palpitations, chest pain or shortness of breath on exertion. LUNGS: Denies cough, hemoptysis, wheezing or shortness of breath. GASTROINTESTINAL: Denies changes in appetite, nausea, vomiting, diarrhea or constipation. GENITOURINARY: No history of frequency, urgency, hesitancy or nocturia. NEUROLOGIC: Denies history of numbness, tingling, tremor or weakness. PSYCHIATRIC: No history of panic, anxiety or depression. ENDOCRINE: No history of heat or cold intolerance, polyuria or polydipsia. EXTREMITIES: Denies muscle weakness, joint pain, pain on walking or stiffness. PHYSICAL EXAMINATION: VITALS: Within normal limits and are stable. GENERAL: No apparent distress. Alert and oriented. HEENT: Normal cephalic atraumatic, external auditory canals are patent. EYES: Extraocular muscles are intact, pupils are equally round and reactive to light and accommodation. MUSKULOSKELETAL: Well developed, well nourished, good range of motion. ENDOCRINE: No thyromegaly was palpated. LYMPHATICS: No cervical chain or axillary nodes were noted. HEMATOPOIETIC: No bruising. NECK: Supple, no JVD, no thyromegaly was noted. LUNGS: Clear to auscultation in all lung [place] without rhonchi or wheezing. HEART: RRR, S1, S2 present. Peripheral pulses intact, no obvious murmurs were noted. ABDOMEN: Soft, nontender. Positive bowel sounds no organomegaly, normal bowel sounds. EXTREMITIES: Without any cyanosis, clubbing, or edema. Pedal pulses intact, Homans sign is negative. NEUROLOGIC: Normal speech, normal tone. A and O x 3, moves all extremities, no obvious focal deficits. PSYCHIATRIC: Normal affect, normal mood. Stable. SKIN: No ulcerations or rashes, good skin turgor, no jaundice. VASCULAR: Good capillary refill, neurovascular bundle appears to be intact. LABORATORY DATA: Troponin is 0. ASSESSMENT AND PLAN: Resolving atypical chest pain. We will go ahead and discharge. DISPOSITION: Home. ACTIVITY: As tolerated. DIET: Low sodium. MEDICATIONS: Please see the MRAD. TOTAL TIME: 33 minutes. DONALDO FOUNTAIN DO DR: DANIEL/benitez JOB#: [id number] / [id number]
--- NOTE | 2019-05-21 13:33 | CARD ---
MR#: [id number] Date of Study: 05/21/2019 Ordering Physician: MAGALI CHANDLER, Referring Physician: MAGALI CHANDLER, Tech: Kirstie Wilkerson APPROVED REPORT EXAM: Two-dimensional and M-mode echocardiogram with Doppler and color Doppler. Other Information Quality : Average Technically limited study due to body habitus. INDICATION Chest Pain 2D DIMENSIONS RVDd2.7 (2.9-3.5cm)Left Atrium(2D)2.9 (1.6-4.0cm) IVSd1.0 (0.7-1.1cm)Aortic Root(2D)2.6 (2.0-3.7cm) LVDd4.6 (3.9-5.9cm)LVOT Diameter2.0 (1.8-2.4cm) PWd1.0 (0.7-1.1cm)LVDs2.7 (2.5-4.0cm) FS (%) 40.7 %SV70.1 ml Aortic Valve AoV Peak César.157.7cm/sAoV VTI29.5cm AO Peak GR.9.9mmHgLVOT Peak César.145.4cm/s LVOT VTI 28.82cmAO Mean GR.5mmHg MADELINE (VMAX)2.63sj3BVC (VTI)3.06cm2 Mitral Valve MV E Ufwyclay65.4cm/sMV DECEL JUTH120xo MV A Rhvtgiut078.8cm/sMV E Mean Gr.4mmHg MV NGS26tjQ/A Ratio0.8 MVA (PHT)2.65cm2 TDI E/Lateral E'8.5E/Medial E'9.2 Pulmonary Valve PV Peak Kkadgsbv65.0cm/sPV Peak Grad.4mmHg Tricuspid Valve TR P. Owofoosn237xp/sRAP JHEGHKLP9awAn TR Peak Gr.63eyZaXHJM18hwKy Pulmonary Vein S1 Kqhhvtkq56.1cm/sD2 Ijsvagao25.8cm/s PVa pflvsjgc732wzfz LEFT VENTRICLE The left ventricle is normal size. There is normal left ventricular wall thickness. The left ventricu lar systolic function is normal and the ejection fraction is within normal range. The Ejection Fracti on is 55-60%. There is normal LV segmental wall motion. Transmitral Doppler flow pattern is Grade I-a bnormal relaxation pattern. RIGHT VENTRICLE The right ventricle is normal size. There is normal right ventricular wall thickness. The right ventr icular systolic function is normal. ATRIA The left atrium size is normal. The right atrium size is normal. The interatrial septum is intact wit h no evidence for an atrial septal defect or patent foramen ovale as noted on 2-D or Doppler imaging. AORTIC VALVE The aortic valve is thickened but opens well. Doppler and Color Flow revealed no significant aortic r egurgitation. There is no significant aortic valvular stenosis. MITRAL VALVE The mitral valve is normal in structure and function. There is no evidence of mitral valve prolapse. There is no mitral valve stenosis. Doppler and Color-flow revealed trace mitral regurgitation. TRICUSPID VALVE The tricuspid valve is normal in structure and function. Doppler and Color Flow revealed trace tricus pid regurgitation with an estimated PAP of 25 mmHg. There is no tricuspid valve stenosis. PULMONIC VALVE The pulmonic valve is not well visualized. Doppler and Color Flow revealed trace pulmonic valvular re gurgitation. GREAT VESSELS The aortic root is normal in size. The IVC is normal in size and collapses >50% with inspiration. PERICARDIAL EFFUSION There is no evidence of significant pericardial effusion. Critical Notification Critical Value: No <Conclusion> The left ventricle is normal size. The left ventricular systolic function is normal and the ejection fraction is within normal range. The Ejection Fraction is 55-60%. Doppler and Color Flow revealed no significant aortic regurgitation. There is no significant aortic valvular stenosis. Doppler and Color-flow revealed trace mitral regurgitation. Doppler and Color Flow revealed trace tricuspid regurgitation with an estimated PAP of 25 mmHg. Signed by : Robert Talbert MD Electronically Approved : 05/21/2019 13:33:22
--- NOTE | 2019-05-21 14:57 | NUR ---
Discharge Note: SAMANTHA FOUNTAIN Discharge instructions and discharge home medications reviewed with Patient and a copy given. All questions have been answered and understanding verbalized.
[2019-05-21] MEDS ORDERED: ATORVASTATIN CALCIUM 10 MG TABLET. PO SCH ×2 (21:00)
== END 2019-05-21 14:44 | disposition home or self-care (01) ==
LOC: ER 15:24 → 2 NORTH 17:22
PROVIDERS: ADMIT Internal Medicine; ATTEND Internal Medicine
DX: R07.89 Other chest pain (principal); E78.5 Hyperlipidemia, unspecified; K21.9 Gastro-esophageal reflux disease without esophagitis; J45.909 Unspecified asthma, uncomplicated; K58.9 Irritable bowel syndrome, unspecified; E04.1 Nontoxic single thyroid nodule; Z90.49 Acquired absence of other specified parts of digestive tract; Z90.710 Acquired absence of both cervix and uterus; Z98.890 Other specified postprocedural states; Z82.49 Family history of ischemic heart disease and other diseases of the circulatory system; E78.00 Pure hypercholesterolemia, unspecified; I25.10 Atherosclerotic heart disease of native coronary artery without angina pectoris; G25.9 Extrapyramidal and movement disorder, unspecified; M19.90 Unspecified osteoarthritis, unspecified site; R79.89 Other specified abnormal findings of blood chemistry; N18.3 Chronic kidney disease, stage 3 (moderate); I12.9 Hypertensive chronic kidney disease with stage 1 through stage 4 chronic kidney disease, or unspecified chronic kidney disease; Z79.82 Long term (current) use of aspirin; Z86.711 Personal history of pulmonary embolism; Z96.642 Presence of left artificial hip joint; Z96.651 Presence of right artificial knee joint
CPT/HCPCS: 36415; 71045; 78597; 80053; 80061; 82550; 83690; 83735; 83880; 84443; 84484; 85007; 85025; 85379; 85610; 93005; 93306; 99285; A9540; G0378; 96374; G0379

== ENCOUNTER → 2019-11-15 | Outpatient (CLI) | payer MEDICARE, BC ==
[~2019-11-15] MED LIST changes: +ATOR10TA60 PO; -CALC600T4 PO; +CALC600T6 PO; -DICL100G18 TP; +DICL100G54 TP
--- NOTE | 2019-11-15 15:36 | KCIC ---
EXAM: Right wrist, 3 views. HISTORY: Fall. Pain. COMPARISON: None. FINDINGS: 3 views of the right wrist are obtained. Fracture, dislocation or subluxation. The alignment and joint spaces are unremarkable. There is a tiny ossicle or calcification adjacent to the ulnar styloid. IMPRESSION: No acute osseous finding. Electronically signed by: Marian Pineda MD (11/15/2019 3:33 PM) [id number]
== END | disposition home or self-care (01) ==
LOC: KCIC 11:18
PROVIDERS: ATTEND Family Medicine
DX: M25.531 Pain in right wrist (principal)
CPT/HCPCS: 73110

== ENCOUNTER → 2019-11-28 | Outpatient (CLI) | payer MEDICARE, BC ==
--- NOTE | 2019-11-28 17:33 | KCIC ---
2 view facial bone series 11/28/2019 CLINICAL HISTORY: Fall earlier today with pain and bruising to the region of the left maxilla. Ahn and lateral digital radiographs of the facial bones were obtained. No facial bone fracture is seen. Both orbits are intact. The paranasal sinuses are clear. IMPRESSION: No facial bone or orbital fracture is seen. Electronically signed by: Tom Hoffmann MD (11/28/2019 5:30 PM) [id number]
== END | disposition home or self-care (01) ==
LOC: KCIC 15:27
PROVIDERS: ATTEND Nurse Practitioner Family
DX: R68.84 Jaw pain (principal); W19.XXXA Unspecified fall, initial encounter
CPT/HCPCS: 70150

== ENCOUNTER 2020-11-29 17:34 | Emergency (ER) | payer MEDICARE, BC ==
[~2020-11-29] VITALS: Ht 152.4 cm; Wt 102.0 kg
[~2020-11-29 17:34] MED LIST changes: -CALC600T6 PO; +CALC600T60 PO; -OMEP40CA45 PO; +OMEP40CA7 PO
--- NOTE | 2020-11-29 18:51 | PHYS DOC ---
Past Medical History Past Medical History: Asthma, GERD, High Cholesterol, IBS, Pneumonia, Other Additional Past Medical Histor: MALIGNANT HYPERTHERMIA,MOVEMENT DISORDER Past Surgical History: Appendectomy, Cholecystectomy, Hip Replacement, Hysterectomy, Knee Replacement, Other Additional Past Surgical Histo: lower back rods & pain stim,ulnar nerve repair,carpal tunnel,FUNDIPLICATION Smoking Status: Never Smoker Alcohol Use: None Drug Use: None General Adult EDM: Chief Complaint: MECHANICAL FALL HPI: HPI: Patient is a 70 year old female who presents to the ED today to be evaluated after falling. Patient states she was hanging laundry outside when she fell. Patient denies any loss of consciousness, denies hitting her head on the ground. Denies any head or neck pain. Reports being on a baby aspirin. Patient is complaining of a 8 out of 10 throbbing intermittent left elbow pain, low back pa in, left hip pain, right knee pain. States the pain is worse on certain movements as well as worse on touching the right knee. States immobilization relieves the pain. Review of Systems: Review of Systems: Constitutional: Denies fever or chills. [] Eyes: Denies change in visual acuity. [] HENT: Denies nasal congestion or sore throat. [] Respiratory: Denies cough or shortness of breath. [] Cardiovascular: Denies chest pain or edema. [] GI: Denies abdominal pain, nausea, vomiting, bloody stools or diarrhea. [] : Denies dysuria. [] Musculoskeletal: Reports left elbow pain, low back pain, left hip pain, right knee pain Integument: Denies rash. [] Neurologic: Denies headache, focal weakness or sensory changes. [] Psychiatric: Denies depression or anxiety. [] Heart Score: C/O Chest Pain: N/A Risk Factors: Risk Factors: DM, Current or recent (<one month) smoker, HTN, HLP, family history of CAD, obesity. Risk Scores: Score 0 - 3: 2.5% MACE over next 6 weeks - Discharge Home Score 4 - 6: 20.3% MACE over next 6 weeks - Admit for Clinical Observation Score 7 - 10: 72.7% MACE over next 6 weeks - Early Invasive Strategies Allergies: Allergies: Allergies Coded Allergies Type Severity Reaction Last Updated Verified bacitracin Allergy Intermediate rash 10/30/18 Yes neomycin Allergy Intermediate rash 10/30/18 Yes polymyxin B Allergy Intermediate rash 10/30/18 Yes sulfamethoxazole Allergy Intermediate Nausea and Vomiting 10/30/18 Yes latex Allergy Mild MILD- GETS RASH 10/31/18 Yes adhesive Adverse Reaction Intermediate Rash-INCLUDING STERI STRIPS AND GLUE 10/30/18 Yes clavulanic acid Adverse Reaction Intermediate headache 10/30/18 Yes erythromycin base Adverse Reaction Intermediate vomiting 10/30/18 Yes morphine Adverse Reaction Intermediate vomiting 10/30/18 Yes nitrofurantoin Adverse Reaction Intermediate fatigue 10/30/18 Yes trimethoprim Adverse Reaction Intermediate Nausea and Vomiting 10/30/18 Yes amoxicillin Adverse Reaction Mild headache 10/30/18 Yes Physical Exam: PE: Constitutional: Well developed, well nourished, no acute distress, non-toxic appearance. [] HENT: Normocephalic, atraumatic, bilateral external ears normal, oropharynx moist, no oral exudates, nose normal. [] Eyes: PERRLA, EOMI, conjunctiva normal, no discharge. [] Neck: Normal range of motion, no tenderness, supple, no stridor. [] Cardiovascular:Heart rate regular rhythm, no murmur [] Lungs & Thorax: Bilateral breath sounds clear to auscultation [] Abdomen: Bowel sounds normal, soft, no tenderness, no masses, no pulsatile masses. [] Skin: Warm, dry, no erythema, no rash. [] Back: Old healed surgical incision noted midline low back, nerve stimulator noted on the left lower back. Diffuse paraspinal muscle tenderness to bilateral lumbar spine, no midline lumbar spine tenderness, no CVA tenderness. [] Extremities: Left elbow with bruising, right knee with bruising on the anterior aspect. No tenderness on the elbow. Full range of motion to the left elbow and left upper extremity. Adequate radial, medial, ulnar sensation to the left upper extremity. +2 left radial pulse. Cap refill less than 2 seconds to left fingers. Right knee with an old healed surgical incision. Tenderness diffusely on the anterior aspect of the right knee. Full range of motion to the right knee. +2 right pedal pulse. Cap refill less than 2 seconds to right lower extremity Neurologic: Alert and oriented X 3, normal motor function, normal sensory function, no focal deficits noted. [] Psychologic: Affect normal, judgement normal, mood normal. Current Patient Data: Vital Signs: Vital Signs Date Time Temp Pulse Resp B/P (MAP) Pulse Ox O2 Delivery O2 Flow Rate FiO2 11/29/20 18:21 98.2 60 16 139/67 (91) 98 Room Air 98.2 EKG: EKG: [] Radiology/Procedures: Radiology/Procedures: []PROCEDURE: HIP LEFT 2V WITH PELVIS EXAMINATION: 3 views of the left hip, 3 views of the right elbow, 3 views of the lumbar spine and 4 views of the right knee. COMPARISON: None INDICATION:70 years, Female, fall. FINDINGS: Left hip: Left hip arthroplasty with no hardware failure. No acute fracture, dislocation or subluxation. No soft tissue swelling. Right knee: Total right knee arthroplasty. No hardware failure. No acute fracture, dislocation or subluxation. Mild soft tissue swelling. No joint effusion. Right elbow: No acute fracture, dislocation or subluxation. No bone erosion or periosteal reaction. No soft tissue swelling or joint effusion. Lumbar spine: The vertebral arteries are normal in height and alignment. No acute fracture or subluxation. Posterior hardware fusion with metallic rods and transpedicular screws at L3-4 and L4-5. Disc spacers at L3-4 or L4-5. No evidence of hardware failure. Multilevel degenerative changes in the lower l umbar spine with disc space narrowing, osteophytes and vacuum phenomena, worst at L2-3 and L5-S1. Paravertebral soft tissue is unremarkable. Stimulator device in the left posterior abdominal wall. Surgical clips in the abdomen. IMPRESSION: 1. No acute osseous process in the left hip, right knee, right elbow or lumbar spine. 2. Other chronic/incidental findings, as described above. Electronically signed by: Nestor Quintero MD (11/29/2020 7:30 PM) [facility] DICTATED and SIGNED BY: NESTOR QUINTERO MD DATE: 11/29/20 [id number] 0 Course & Med Decision Making: Course & Med Decision Making Pertinent Labs and Imaging studies reviewed. (See chart for details) This is a 70-year-old female patient presenting to the ED today to be evaluated after falling. She has complaints of left elbow pain, left hip pain, low back pain and right knee pain. X-rays of left elbow pain, left hip pain, low back pain and right knee interpreted by radiologist are negative for any acute findings, discharged to home. Ice elevation encouraged. Follow-up with orthopedic doctor and PCP in 1 to 2 weeks Darlyn Disclaimer: Darlyn Disclaimer: This electronic medical record was generated, in whole or in part, using a voice recognition dictation system. Departure Departure Impression: Primary Impression: Fall from standing Qualified Codes: W19.XXXA - Unspecified fall, initial encounter Additional Impressions: Lumbar contusion Qualified Codes: S30.0XXA - Contusion of lower back and pelvis, initial encounter Left elbow contusion Qualified Codes: S50.02XA - Contusion of left elbow, initial encounter Contusion of left hip Qualified Codes: S70.02XA - Contusion of left hip, initial encounter Contusion of right knee Qualified Codes: S80.01XA - Contusion of right knee, initial encounter Disposition: HOME / SELF CARE / HOMELESS Condition: STABLE Referrals: DALJIT POON MD (PCP) MARIA L BALDERAS DO follow up with your orthopedic doctor in 1-2 weeks Patient Instructions: Contusion, [id number] Additional Instructions: You were evaluated in the emergency room, your x-rays of the left elbow, left hip including pelvis, low back, and right knee are negative for any acute findings. We encourage you to ice and elevate the affected areas. Follow-up with the orthopedic doctor and primary care doctor in 1 week URI AGUILAR APRN Nov 29, 2020 18:51
--- NOTE | 2020-11-29 19:33 | RAD ---
EXAMINATION: 3 views of the left hip, 3 views of the right elbow, 3 views of the lumbar spine and 4 v iews of the right knee. COMPARISON: None INDICATION:70 years, Female, fall. FINDINGS: Left hip: Left hip arthroplasty with no hardware failure. No acute fracture, dislocation or subluxati on. No soft tissue swelling. Right knee: Total right knee arthroplasty. No hardware failure. No acute fracture, dislocation or sub luxation. Mild soft tissue swelling. No joint effusion. Right elbow: No acute fracture, dislocation or subluxation. No bone erosion or periosteal reaction. N o soft tissue swelling or joint effusion. Lumbar spine: The vertebral arteries are normal in height and alignment. No acute fracture or subluxa tion. Posterior hardware fusion with metallic rods and transpedicular screws at L3-4 and L4-5. Disc s pacers at L3-4 or L4-5. No evidence of hardware failure. Multilevel degenerative changes in the lower lumbar spine with disc space narrowing, osteophytes and vacuum phenomena, worst at L2-3 and L5-S1. P aravertebral soft tissue is unremarkable. Stimulator device in the left posterior abdominal wall. Tracy gical clips in the abdomen. IMPRESSION: 1. No acute osseous process in the left hip, right knee, right elbow or lumbar spine. 2. Other chronic/incidental findings, as described above. Electronically signed by: Jono Quintero MD (11/29/2020 7:30 PM) [facility]
[2020-11-29 20:00] VITALS: BP 162/74
== END 2020-11-29 20:01 | disposition home or self-care (01) ==
LOC: ER 17:34
DX: S30.0XXA Contusion of lower back and pelvis, initial encounter (principal); S50.02XA Contusion of left elbow, initial encounter; S70.02XA Contusion of left hip, initial encounter; S80.01XA Contusion of right knee, initial encounter; J45.909 Unspecified asthma, uncomplicated; K21.9 Gastro-esophageal reflux disease without esophagitis; E78.00 Pure hypercholesterolemia, unspecified; K58.9 Irritable bowel syndrome, unspecified; Z90.89 Acquired absence of other organs; Z90.49 Acquired absence of other specified parts of digestive tract; Z90.710 Acquired absence of both cervix and uterus; Z88.1 Allergy status to other antibiotic agents; Z88.2 Allergy status to sulfonamides; Z91.040 Latex allergy status; Z88.5 Allergy status to narcotic agent; Z88.8 Allergy status to other drugs, medicaments and biological substances; W18.39XA Other fall on same level, initial encounter; Y93.89 Activity, other specified; Y92.89 Other specified places as the place of occurrence of the external cause; Y99.8 Other external cause status
CPT/HCPCS: 72100; 73080; 73502; 73564; 99284